=== PATIENT | female | born 1985 | race Caucasian/White ===

== ENCOUNTER 2016-09-09 16:07 | Emergency (ER) | payer OTHER ==
[2016-09-09] MEDS ORDERED: SODIUM CHLORIDE 0.9% 500 ML IV STA (16:23)
[2016-09-09] MEDS ORDERED: ONDANSETRON 4 MG/2 ML VIAL IVP STA (16:23)
[2016-09-09] MEDS ORDERED: MORPHINE SULFATE 4 MG/ML SYRINGE IV STA (16:23)
[2016-09-09 16:39] LABS: Amorphous Sediment,Urine Rare /hpf; Appearance,Urine Clear (Clear); Bacteria,Urine Occasional /hpf; Bilirubin,Urine Negative (Negative); Glucose,Urine (UA) Negative (Negative); Ketones,Urine Negative (Negative); Leukocyte Esterase,Urine Negative (Negative); Mucus,Urine Rare /hpf; Nitrite,Urine Negative (Negative); PH, Urine 6.5 (5.0-8.0); Particle Count 1994; Protein,Urine Negative (Negative); RBC,Urine 49 /hpf (0-5); Specific Gravity,Urine 1.011 (1.001-1.035); Squamous Epithelial Cell,Urine 1 /hpf (0-4); UA Billing (MACRO vs. MICRO) MICRO; Urobilinogen,Urine <2.0 mg/dL (<2.0); WBC,Urine 1 /hpf (0-5)
[2016-09-09 17:01] LABS: ALT 38 U/L (9-52); AST 19 U/L (14-36); Alkaline Phosphatase 77 U/L (38-126); Amylase 35 U/L (30-110); Anion Gap 11 mmol/L; Blood Urea Nitrogen 9 mg/dL (7-17); Calcium 9.5 mg/dL (8.4-10.2); Carbon Dioxide 28 mmol/L (22-30); Chloride 103 mmol/L (98-107); Glucose 101 mg/dL (74-99); Non-African American GFR(MDRD) >60 (>60 ml/min/1.73 sqM); Sodium 142 mmol/L (137-145); Total Bilirubin 0.7 mg/dL (0.2-1.3); Total Protein 7.2 g/dL (6.3-8.2)
[2016-09-09 17:11] LABS: Basophils % (A) 0 %; CH 26.8; CHCM 33.2; Eosinophils # (A) 0.2 k/uL (0-0.7); Eosinophils % (A) 2 %; HDW 3.05; HGB 14.8 gm/dL (11.4-16.0); Luc # (Auto) 0.18; Luc % (Auto) 2; Lymphocytes # (A) 2.2 k/uL (1.0-4.8); Lymphocytes % (A) 21 %; MCHC 32.1 g/dL (31.0-37.0); MCV 80.9 fL (80.0-100.0); Mean Platelet Volume 6.5; Monocytes # (A) 0.5 k/uL (0-1.0); Monocytes % (A) 5 %; Neutrophils # (A) 7.1 k/uL (1.3-7.7); Neutrophils % (A) 70 %; RBC 5.68 m/uL (3.80-5.40); RDW 13.9 % (11.5-15.5); WBC 10.2 k/uL (3.8-10.6); WBC (Perox) 10.91
--- NOTE | 2016-09-09 17:35 | ED ---
Abdominal Pain HPI - General Chief Complaint: Abdominal Pain Stated Complaint: Abdominal Pain Time Seen by Provider: 09/09/16 16:17 Source: patient, RN notes reviewed Mode of arrival: ambulatory Limitations: no limitations - History of Present Illness Initial Comments: 31-year-old female presents emergency Department with chief complaint of right lower quadrant abdominal pain. Patient states started yesterday. Patient states pain is getting worse. She states she has a history of piece he wasn't states that she feels that she is ovarian cyst. Patient states pain is nonradiating. Patient denies any vomiting states she's had some nausea. Denies any fever, chills, dysuria, hematuria. Denies any chance . Patient had a prior section no other abdominal surgeries. - Related Data Home Medications Medication Instructions Recorded Confirmed PARoxetine [Paxil] 20 mg PO DAILY 07/09/15 09/09/16 clonazePAM [KlonoPIN] 0.5 mg PO DAILY 07/09/15 09/09/16 Previous Rx's Medication Instructions Recorded Hydrocodone/Acetaminophen [[place] 1 tab PO Q6HR PRN #20 tab 09/09/16 5-325] Ketorolac [Toradol] 10 mg PO Q8HR #15 tab 09/09/16 Ondansetron Odt [Zofran Odt] 4 mg PO Q8HR PRN #10 tab 09/09/16 Allergies Allergy/AdvReac Type Severity Reaction Status Date / Time cephradine [From Velosef] Allergy Intermediate Rash/Hives Verified 09/09/16 16: 25 Review of Systems ROS Statement: Those systems with pertinent positive or pertinent negative responses have been documented in the HPI. ROS Other: All systems not noted in ROS Statement are negative. Past Medical History Past Medical History: Asthma, Hypertension Additional Past Medical History / Comment(s): PCOS History of Any Multi-Drug Resistant Organisms: None Reported Past Surgical History: Adenoidectomy, Section, Cholecystectomy Past Psychological History: Anxiety, Depression Smoking Status: Current every day smoker Past Alcohol Use History: None Reported Past Drug Use History: None Reported - Past Family History Mother Family Medical History: Diabetes Mellitus, Hypertension General Exam Limitations: no limitations General appearance: alert, in no apparent distress Head exam: Present: atraumatic, normocephalic, normal inspection Respiratory exam: Present: normal lung sounds bilaterally. Absent: respiratory distress, wheezes, rales, rhonchi, stridor Cardiovascular Exam: Present: regular rate, normal rhythm, normal heart sounds. Absent: systolic murmur, diastolic murmur, rubs, gallop, clicks GI/Abdominal exam: Present: soft, tenderness (Mild amount right lower quadrant tenderness), normal bowel sounds. Absent: distended, guarding, rebound, rigid Course Vital Signs 09/09/16 09/09/16 16:09 18:29 Temperature 97.0 F L Pulse Rate 85 77 Respiratory 17 16 Rate Blood Pressure 190/110 163/88 O2 Sat by Pulse 97 98 Oximetry Medical Decision Making - Medical Decision Making 31-year-old female presented emergency Department chief complaint right lower quadrant abdominal pain. Patient's lab work within normal it's. Patient did have some hematuria noted CT does show 3 mm UVJ stone. Patient be treated with pain medication and discharge. Patient is afebrile, has no white count and has no evidence of white cells in her urine. There is no evidence of infection. - Lab Data Result diagrams: 09/09/16 16:39 09/09/16 16:39 Lab Results 09/09/16 09/09/16 09/09/16 Range/Units 16:15 16:15 16:39 WBC (3.8-10.6) k/uL RBC (3.80-5.40) m/uL Hgb (11.4-16.0) gm/dL Hct (34.0-46.0) % MCV (80.0-100.0) fL MCH (25.0-35.0) pg MCHC (31.0-37.0) g/dL RDW (11.5-15.5) % Plt Count (150-450) k/uL Neutrophils % % Lymphocytes % % Monocytes % % Eosinophils % % Basophils % % Neutrophils # (1.3-7.7) k/uL Lymphocytes # (1.0-4.8) k/uL Monocytes # (0-1.0) k/uL Eosinophils # (0-0.7) k/uL Basophils # (0-0.2) k/uL Sodium 142 (137-145) mmol/L Potassium 4.0 (3.5-5.1) mmol/L Chloride 103 (98-107) mmol/L Carbon Dioxide 28 (22-30) mmol/L Anion Gap 11 mmol/L BUN 9 (7-17) mg/dL Creatinine 0.65 (0.52-1.04) mg/dL Est GFR (MDRD) Af Amer >60 (>60 ml/min/1.73 sqM) Est GFR (MDRD) Non-Af >60 (>60 ml/min/1.73 sqM) Glucose 101 H (74-99) mg/dL Calcium 9.5 (8.4-10.2) mg/dL Total Bilirubin 0.7 (0.2-1.3) mg/dL AST 19 (14-36) U/L ALT 38 (9-52) U/L Alkaline Phosphatase 77 (38-126) U/L Total Protein 7.2 (6.3-8.2) g/dL Albumin 4.2 (3.5-5.0) g/dL Amylase 35 (30-110) U/L Lipase 67 (23-300) U/L Urine Color Dark Yellow Urine Appearance Clear (Clear) Urine pH 6.5 (5.0-8.0) Ur Specific [place] 1.011 (1.001-1.035) Urine Protein Negative (Negative) Urine Glucose (UA) Negative (Negative) Urine Ketones Negative (Negative) Urine Blood Small H (Negative) Urine Nitrate Negative (Negative) Urine Bilirubin Negative (Negative) Urine Urobilinogen <2.0 (<2.0) mg/dL Ur Leukocyte Esterase Negative (Negative) Urine RBC 49 H (0-5) /hpf Urine WBC 1 (0-5) /hpf Ur Squamous Epith Cells 1 (0-4) /hpf Amorphous Sediment Rare H (None) /hpf Urine Bacteria Occasional H (None) /hpf Urine Mucus Rare H (None) /hpf Urine HCG, Qual Not Detected (Not Detectd) 09/09/16 Range/Units 16:39 WBC 10.2 (3.8-10.6) k/uL RBC 5.68 H (3.80-5.40) m/uL Hgb 14.8 (11.4-16.0) gm/dL Hct 46.0 (34.0-46.0) % MCV 80.9 (80.0-100.0) fL MCH 26.0 (25.0-35.0) pg MCHC 32.1 (31.0-37.0) g/dL RDW 13.9 (11.5-15.5) % Plt Count 330 (150-450) k/uL Neutrophils % 70 % Lymphocytes % 21 % Monocytes % 5 % Eosinophils % 2 % Basophils % 0 % Neutrophils # 7.1 (1.3-7.7) k/uL Lymphocytes # 2.2 (1.0-4.8) k/uL Monocytes # 0.5 (0-1.0) k/uL Eosinophils # 0.2 (0-0.7) k/uL Basophils # 0.0 (0-0.2) k/uL Sodium (137-145) mmol/L Potassium (3.5-5.1) mmol/L Chloride (98-107) mmol/L Carbon Dioxide (22-30) mmol/L Anion Gap mmol/L BUN (7-17) mg/dL Creatinine (0.52-1.04) mg/dL Est GFR (MDRD) Af Amer (>60 ml/min/1.73 sqM) Est GFR (MDRD) Non-Af (>60 ml/min/1.73 sqM) Glucose (74-99) mg/dL Calcium (8.4-10.2) mg/dL Total Bilirubin (0.2-1.3) mg/dL AST (14-36) U/L ALT (9-52) U/L Alkaline Phosphatase (38-126) U/L Total Protein (6.3-8.2) g/dL Albumin (3.5-5.0) g/dL Amylase (30-110) U/L Lipase (23-300) U/L Urine Color Urine Appearance (Clear) Urine pH (5.0-8.0) Ur Specific [place] (1.001-1.035) Urine Protein (Negative) Urine Glucose (UA) (Negative) Urine Ketones (Negative) Urine Blood (Negative) Urine Nitrate (Negative) Urine Bilirubin (Negative) Urine Urobilinogen (<2.0) mg/dL Ur Leukocyte Esterase (Negative) Urine RBC (0-5) /hpf Urine WBC (0-5) /hpf Ur Squamous Epith Cells (0-4) /hpf Amorphous Sediment (None) /hpf Urine Bacteria (None) /hpf Urine Mucus (None) /hpf Urine HCG, Qual (Not Detectd) Disposition Clinical Impression: Right ureteral calculus Disposition: HOME SELF-CARE Condition: Stable Instructions: Kidney Stones (ED) Additional Instructions: Please return to the Emergency Department if symptoms worsen or any other concerns. Prescriptions: Hydrocodone/Acetaminophen [[place] 5-325] 1 tab PO Q6HR PRN #20 tab PRN Reason: Pain Ketorolac [Toradol] 10 mg PO Q8HR #15 tab Ondansetron Odt [Zofran Odt] 4 mg PO Q8HR PRN #10 tab PRN Reason: Nausea Time of Disposition: 19:45
--- NOTE | 2016-09-09 17:57 | US ---
EXAMINATION TYPE: US transvaginal DATE OF EXAM: 09/09/2016 5:31 PM COMPARISON: NONE CLINICAL HISTORY: Pain. HX of PCOS. RLQ pain. TECHNIQUE: Transvaginal (TV) Date of LMP: 11/22/2016, EXAM MEASUREMENTS: Uterus: 8.7 x 5.9 x 4.7 cm Endometrial Stripe: 0.9 cm Right Ovary: 2.6 x 1.5 x 1.3 cm Left Ovary: Not visualized 1. Uterus: Anteverted wnl 2. Endometrium: wnl 3. Right Ovary: wnl as suboptimally seen 4. Left Ovary: not visualized Spectral, color and waveform doppler imaging shows good arterial and venous flow within the ovaries ; there is no evidence for ovarian torsion. 5. Bilateral Adnexa: wnl 6. Posterior cul-de-sac: no free fluid IMPRESSION: No significant abnormality identified.
[2016-09-09] MEDS ORDERED: KETOROLAC 30 MG/ML 1 ML VIAL IVP STA (18:21)
[2016-09-09 18:30] VITALS: RESP 16
--- NOTE | 2016-09-09 19:26 | CT ---
EXAMINATION TYPE: CT abdomen pelvis wo con DATE OF EXAM: 09/09/2016 7:04 PM COMPARISON: NONE HISTORY: Patient complains of right flank pain and microscopic hematuria. CT DLP: 1242.2 mGycm FINDINGS: LUNG BASES: No evidence for nodule. No evidence for infiltrate. LIVER/GB: Cholecystectomy clips identified. No space-occupying hepatic lesion. PANCREAS: No pancreatic mass identified. No inflammatory process seen. SPLEEN: No evidence for splenomegaly. No intrasplenic lesions seen. ADRENALS: No adrenal nodules identified. No evidence for thickening. KIDNEYS: 3 mm right UVJ calculus resulting in mild right-sided hydroureteronephrosis. Additional nono bstructing right-sided renal calculi. Edema of the right kidney. Underlying infection is not excluded . 2 mm nonobstructing calculus left kidney noted. BOWEL: Appendix has a normal appearance. No evidenc e of bowel obstruction. No inflammatory process. Lymph nodes: No evidence for adenopathy greater than 1 cm. Abdominal aorta: Atheromatous changes seen. No evidence for aneurysm. Genital organs: No significant abnormality. Other: No significant abnormality. IMPRESSION: 3 mm right UVJ calculus resulting in mild right-sided hydroureteronephrosis. Additional nonobstructin g right-sided renal calculi. Edema of the right kidney. Underlying infection is not excluded.
[2016-09-09 20:01] VITALS: BP 158/78; PULSE 74; TEMP 97.9
== END 2016-09-09 20:05 | disposition home or self-care (01) ==
LOC: EC 16:07
DX: N13.2 Hydronephrosis with renal and ureteral calculous obstruction (principal); Z79.899 Other long term (current) drug therapy; Z88.1 Allergy status to other antibiotic agents; E28.2 Polycystic ovarian syndrome; F41.9 Anxiety disorder, unspecified; F32.9 Major depressive disorder, single episode, unspecified; F17.200 Nicotine dependence, unspecified, uncomplicated
CPT/HCPCS: 36415; 80053; 82150; 83690; 85025; 81001; 81025; 87086; 93976; 76830; 74176; 99284; 96374; 96375; 96361; J2270; J2405; J1885

== ENCOUNTER 2017-07-24 16:51 | Emergency (ER) | payer OTHER ==
[2017-07-24 17:15] VITALS: BP 168/95; PULSE 89; RESP 17; TEMP 97.6
--- NOTE | 2017-07-24 17:21 | ED ---
General Adult HPI - General Chief complaint: Extremity Injury, Upper Stated complaint: Rt wrist injury ( fell on ice) Time Seen by Provider: 07/24/17 17:11 Source: patient, RN notes reviewed Mode of arrival: ambulatory Limitations: no limitations - History of Present Illness Initial comments: 32-year-old female presents to the emergency department with a chief complaint of right wrist pain. She states she slipped on the ice and fell onto her right wrist. Now she's having some pain. She has a swelling she denies any head injury or any other symptoms with this. She was concerned due to the continued pain in the wrist so she thought that she should be evaluated. Patient denies any recent fever, chills, shortness of breath, chest pain, back pain, abdominal pain, nausea vomiting, numbness or tingling, dysuria or hematuria, constipation or diarrhea, headaches or visual changes, or any other current symptoms. - Related Data Home Medications Medication Instructions Recorded Confirmed PARoxetine [Paxil] 20 mg PO DAILY 07/09/15 09/09/16 clonazePAM [KlonoPIN] 0.5 mg PO DAILY 07/09/15 09/09/16 Previous Rx's Medication Instructions Recorded Hydrocodone/Acetaminophen [[place] 1 tab PO Q6HR PRN #20 tab 09/09/16 5-325] Ketorolac [Toradol] 10 mg PO Q8HR #15 tab 09/09/16 Ondansetron Odt [Zofran Odt] 4 mg PO Q8HR PRN #10 tab 09/09/16 Allergies Allergy/AdvReac Type Severity Reaction Status Date / Time cephradine [From Velosef] Allergy Intermediate Rash/Hives Verified 07/24/17 17: 12 Review of Systems ROS Statement: Those systems with pertinent positive or pertinent negative responses have been documented in the HPI. ROS Other: All systems not noted in ROS Statement are negative. Past Medical History Past Medical History: Asthma, Hypertension Additional Past Medical History / Comment(s): PCOS History of Any Multi-Drug Resistant Organisms: None Reported Past Surgical History: Adenoidectomy, Section, Cholecystectomy Past Psychological History: Anxiety, Depression Smoking Status: Current every day smoker Past Alcohol Use History: None Reported Past Drug Use History: None Reported - Past Family History Mother Family Medical History: Diabetes Mellitus, Hypertension General Exam - General Exam Comments Initial Comments: General: The patient is awake and alert, in no distress, and does not appear acutely ill. Neck: The neck is supple, there is no tenderness. Cardiovascular: There is a regular rate and rhythm. No murmur, rub or gallop is appreciated. Respiratory: Lungs are clear to auscultation, respirations are non-labored, breath sounds are equal. No wheezes, stridor, rales, or rhonchi. Musculoskeletal: Sensation intact with 2+ pulses of the right upper extremity. Frontal motion of right elbow. Patient has good range of motion right wrist with some tenderness along the distal ulna. No deformity no swelling no ecchymosis. Fund motion of the right hand with no point tenderness. Neurological: CN II-XII intact, There are no obvious motor or sensory deficits. Coordination appears grossly intact. Speech is normal. Skin: Skin is warm and dry and no rashes or lesions are noted. Psychiatric: Normal mood and affect. Limitations: no limitations Course Vital Signs 07/24/17 17:12 Temperature 97.6 F Pulse Rate 89 Respiratory 17 Rate Blood Pressure 168/95 O2 Sat by Pulse 97 Oximetry Medical Decision Making - Medical Decision Making 32-year-old female presents emergency department with chief complaint of right wrist pain. Patient had a trip and fall. At this time x-rays are reviewed. At this time x-rays are negative. We discussed ice Motrin Tylenol. We discussed return parameters and follow-up and all questions. Patient stated that she understood and she is agreement this plan. She'll be discharged. - Radiology Data Radiology results: report reviewed, image reviewed Disposition Clinical Impression: Right wrist sprain Disposition: HOME SELF-CARE Condition: Stable Instructions: Wrist Injury (ED) Additional Instructions: Please use medication as discussed. Please follow up with family doctor if symptoms have not improved over the next two days. Please return to the emergency room if your symptoms increase or worsen or for any other concerns. Referrals: Francisco Mendez MD [Primary Care Provider] - 1-2 days Time of Disposition: 17:45
--- NOTE | 2017-07-24 17:42 | XR ---
PROCEDURE: XR wrist complete RT - 4V DATE AND TIME: 07/24/2017 5:34 PM REFERRING PHYSICIAN: Hyacinth Coleman CLINICAL INDICATION: PHH, Pain TECHNIQUE: Department protocol. COMPARISON: None FINDINGS: There is no fracture or malalignment. The soft tissues are unremarkable. IMPRESSION: NO ACUTE PROCESS.
== END 2017-07-24 17:55 | disposition home or self-care (01) ==
LOC: EC 16:51
DX: S63.501A Unspecified sprain of right wrist, initial encounter (principal); F32.9 Major depressive disorder, single episode, unspecified; F41.9 Anxiety disorder, unspecified; F17.200 Nicotine dependence, unspecified, uncomplicated; Z88.1 Allergy status to other antibiotic agents; Z79.899 Other long term (current) drug therapy; W00.0XXA Fall on same level due to ice and snow, initial encounter
CPT/HCPCS: 99283

== ENCOUNTER → 2017-12-19 | Outpatient (CLI) | payer OTHER ==
--- NOTE | 2017-12-19 15:43 | US ---
EXAMINATION TYPE: Transabdominal DATE OF EXAM: 10/15/17 COMPARISON: NONE CLINICAL HISTORY: Z36 Confirm dates. EXAM PERFORMED: Transvaginal (TV) and Transabdominal (TA) tv supplemental pt body habitus EXAM MEASUREMENTS: GESTATIONAL AGE / DATING Physician Established: Not yet established Dates by LMP: (9 weeks/0 days) EDC: 07/24/2018 Dates by First Scan: no prior Dates by Current Scan for: (7 weeks/5 days) EDC: 08/02/2018 MATERNAL ANATOMY Uterus: 9.4 x 5.9 x 8.6 Right Ovary: 2.0 x 1.6 x 1.9cm Left Ovary: 1.5x1.5 x 1.4 cm Post CDS / Adnexa: wnl Presence of free fluid: wnl Presence of corpus luteal cyst: small rt cyst 0.5 cm Presence of subchorionic bleed: no GESTATION / SURVEY CRL: 1.7 cm 8 weeks/1 days) MSD: 2.5 (7 weeks/1 days) Yolk Sac (normal less than 6mm): 5 Heart Rate: 165 bpm Rhythm: Normal IUP: Viable IUP Date of LMP: 10/17 2017 Beta HcG (if available): Not available at this time IMPRESSION: Single intrauterine gestation estimated at 8 weeks 1 day based on crown-rump length. Cardiac activity measures 165 bpm.
== END | disposition home or self-care (01) ==
LOC: RADUSWWP 14:53
PROVIDERS: ATTEND Obstetrics & Gynecology
DX: Z36.89 Encounter for other specified antenatal screening (principal)
CPT/HCPCS: 76801; 76817

== ENCOUNTER 2017-12-22 19:25 | Emergency (ER) | payer OTHER ==
[2017-12-22 19:42] VITALS: BP 138/90; PULSE 75; RESP 18; TEMP 98.2
[2017-12-22] MEDS ORDERED: SODIUM CHLORIDE 0.9% 1,000 ML IV STA (19:51)
--- NOTE | 2017-12-22 19:54 | ED ---
Dizziness HPI - General Chief Complaint: Dizziness Stated Complaint: Dizziness, 8 wks pgt Time Seen by Provider: 12/22/17 19:45 Source: patient, RN notes reviewed Mode of arrival: wheelchair Limitations: no limitations - History of Present Illness Initial Comments: This is a 32-year-old female who presents to the emergency department with chief complaint of dizziness. Patient states that she is currently 8 weeks . She states that for the past 3 days she has felt dizzy, stating that she feels like she is going to pass out. She states that she has not actually passed out. She states that this comes and goes. She states it happens once every few hours. She admits to associated nausea. Denies fevers or chills, chest pain or shortness of breath, abdominal pain, vomiting, diarrhea or constipation, vaginal discharge or bleeding. - Related Data Home Medications Medication Instructions Recorded Confirmed PARoxetine [Paxil] 20 mg PO DAILY 07/09/15 09/09/16 clonazePAM [KlonoPIN] 0.5 mg PO DAILY 07/09/15 09/09/16 Previous Rx's Medication Instructions Recorded Hydrocodone/Acetaminophen [[place] 1 tab PO Q6HR PRN #20 tab 09/09/16 5-325] Ketorolac [Toradol] 10 mg PO Q8HR #15 tab 09/09/16 Ondansetron Odt [Zofran Odt] 4 mg PO Q8HR PRN #10 tab 09/09/16 methylPREDNISolone Dose Pack 4 mg PO DIRECTED #21 package 10/24/17 [Medrol Dose Pack] Allergies Allergy/AdvReac Type Severity Reaction Status Date / Time cephradine [From Velosef] Allergy Intermediate Rash/Hives Verified 12/22/17 19: 42 Review of Systems ROS Statement: Those systems with pertinent positive or pertinent negative responses have been documented in the HPI. ROS Other: All systems not noted in ROS Statement are negative. Past Medical History Past Medical History: Asthma, Hypertension Additional Past Medical History / Comment(s): PCOS History of Any Multi-Drug Resistant Organisms: None Reported Past Surgical History: Adenoidectomy, Section, Cholecystectomy, Tonsillectomy Past Psychological History: Anxiety, Depression Smoking Status: Former smoker Past Alcohol Use History: None Reported Past Drug Use History: None Reported - Past Family History Mother Family Medical History: Diabetes Mellitus, Hypertension General Exam - General Exam Comments Initial Comments: General: Awake and alert, well-developed; in no apparent distress. HEENT: Head atraumatic, normocephalic. Pupils are equal, round and reactive to light. Extraocular movements intact. Oropharynx moist without erythema or exudate. Neck: Supple. Normal ROM. Cardiovascular: Regular rate and rhythm. No murmurs, rubs or gallops. Chest symmetrical. Respiratory: Lungs clear to auscultation bilaterally. No wheezes, rales or rhonchi. Normal respiratory effort with no use of accessory muscles. Abdomen: Soft, non-tender, non-distended. No rigidity, rebound or guarding. Normal bowel sounds in all 4 quadrants. Musculoskeletal: Normal ROM, no tenderness, strength 5/5 bilateral upper and lower extremities. Ambulating normally. Skin: [place], warm and dry without rashes or lesions. Neurological: Alert and oriented x3. CN II-XII grossly intact. Speech is fluent and answers are appropriate. No focal neuro deficits. Psychiatric: Normal mood and affect. No overt signs of depression or anxiety noted. Limitations: no limitations Course Vital Signs 12/22/17 19:40 Temperature 98.2 F Pulse Rate 75 Respiratory 18 Rate Blood Pressure 138/90 O2 Sat by Pulse 100 Oximetry Medical Decision Making - Medical Decision Making This is a 32-year-old female presents to the emergency department with chief complaint of dizziness. Patient is currently 8 weeks . She states that for the past 3 days she has been feeling like she is going to pass out intermittently. Denies vaginal bleeding or discharge. Denies abdominal pain. CBC, CMP, UA and urine drug screen are negative. Orthostatics are within normal limits. Recommended to increase oral intake. Patient's vital signs are stable and she is in no acute distress. She'll be discharged home at this time. Recommended following up with her PREPARATION CENTER COORDINATOR within 1-2 days. Patient is in agreement with plan and voices understanding. She'll be discharged home at this time. All questions answered. - Lab Data Result diagrams: 12/22/17 20:06 12/22/17 20:06 Lab Results 12/22/17 12/22/17 12/22/17 Range/Units 20:06 20:06 20:06 WBC 10.7 H (3.8-10.6) k/uL RBC 5.12 (3.80-5.40) m/uL Hgb 14.0 (11.4-16.0) gm/dL Hct 42.0 (34.0-46.0) % MCV 82.1 (80.0-100.0) fL MCH 27.4 (25.0-35.0) pg MCHC 33.4 (31.0-37.0) g/dL RDW 14.7 (11.5-15.5) % Plt Count 254 (150-450) k/uL Neutrophils % 68 % Lymphocytes % 22 % Monocytes % 6 % Eosinophils % 2 % Basophils % 0 % Neutrophils # 7.3 (1.3-7.7) k/uL Lymphocytes # 2.4 (1.0-4.8) k/uL Monocytes # 0.6 (0-1.0) k/uL Eosinophils # 0.3 (0-0.7) k/uL Basophils # 0.0 (0-0.2) k/uL Sodium 138 (137-145) mmol/L Potassium 3.8 (3.5-5.1) mmol/L Chloride 101 (98-107) mmol/L Carbon Dioxide 24 (22-30) mmol/L Anion Gap 13 mmol/L BUN 11 (7-17) mg/dL Creatinine 0.60 (0.52-1.04) mg/dL Est GFR (CKD-EPI)AfAm >90 (>60 ml/min/1.73 sqM) Est GFR (CKD-EPI)NonAf >90 (>60 ml/min/1.73 sqM) Glucose 76 (74-99) mg/dL Calcium 9.3 (8.4-10.2) mg/dL Total Bilirubin 0.5 (0.2-1.3) mg/dL AST 16 (14-36) U/L ALT 29 (9-52) U/L Alkaline Phosphatase 51 (38-126) U/L Total Protein 6.6 (6.3-8.2) g/dL Albumin 4.0 (3.5-5.0) g/dL Urine Color Light Yellow Urine Appearance Clear (Clear) Urine pH 6.5 (5.0-8.0) Ur Specific [place] 1.003 (1.001-1.035) Urine Protein Negative (Negative) Urine Glucose (UA) Negative (Negative) Urine Ketones Negative (Negative) Urine Blood Negative (Negative) Urine Nitrite Negative (Negative) Urine Bilirubin Negative (Negative) Urine Urobilinogen <2.0 (<2.0) mg/dL Ur Leukocyte Esterase Negative (Negative) Urine Opiates Screen Not Detected (NotDetected) Ur Oxycodone Screen Not Detected (NotDetected) Urine Methadone Screen Not Detected (NotDetected) Ur Propoxyphene Screen Not Detected (NotDetected) Ur Barbiturates Screen Not Detected (NotDetected) U Tricyclic Antidepress Not Detected (NotDetected) Ur Phencyclidine Scrn Not Detected (NotDetected) Ur Amphetamines Screen Not Detected (NotDetected) U Methamphetamines Scrn Not Detected (NotDetected) U Benzodiazepines Scrn Not Detected (NotDetected) Urine Cocaine Screen Not Detected (NotDetected) U Marijuana (THC) Screen Not Detected (NotDetected) - EKG Data EKG Comments: 19:56:15. Normal sinus rhythm. Ventricular rate 71 bpm, MT interval 190, QRS duration of 72, QT/QTC 386/419. Disposition Clinical Impression: Dizziness Disposition: HOME SELF-CARE Condition: Good Instructions: Dizziness (ED) Additional Instructions: Please follow-up with your PREPARATION CENTER COORDINATOR within 1-2 days. Please follow up with primary care provider within 1-2 days. Return to emergency department if symptoms should worsen or any concerns arise. Is patient prescribed a controlled substance at d/c from ED?: No Referrals: Francisco Mendez MD [Primary Care Provider] - 1-2 days Time of Disposition: 20:53
[2017-12-22 20:19] LABS: Basophils % (A) 0 %; Eosinophils # (A) 0.3 k/uL (0-0.7); Eosinophils % (A) 2 %; Lymphocytes # (A) 2.4 k/uL (1.0-4.8); Lymphocytes % (A) 22 %; MCH 27.4 pg (25.0-35.0); MCHC 33.4 g/dL (31.0-37.0); MCV 82.1 fL (80.0-100.0); Mean Platelet Volume 6.5; Monocytes # (A) 0.6 k/uL (0-1.0); Monocytes % (A) 6 %; Neutrophils # (A) 7.3 k/uL (1.3-7.7); Neutrophils % (A) 68 %; Platelet Count 254 k/uL (150-450); RBC 5.12 m/uL (3.80-5.40); RDW 14.7 % (11.5-15.5); WBC 10.7 k/uL (3.8-10.6)
[2017-12-22 20:20] LABS: Appearance,Urine Clear (Clear); Bilirubin,Urine Negative (Negative); Blood,Urine Negative (Negative); Color,Urine Light Yellow; Glucose,Urine (UA) Negative (Negative); Ketones,Urine Negative (Negative); Leukocyte Esterase,Urine Negative (Negative); Nitrite,Urine Negative (Negative); PH, Urine 6.5 (5.0-8.0); Protein,Urine Negative (Negative); Specific Gravity,Urine 1.003 (1.001-1.035); Urobilinogen,Urine <2.0 mg/dL (<2.0)
[2017-12-22 20:27] LABS: ALT 29 U/L (9-52); AST 16 U/L (14-36); Alkaline Phosphatase 51 U/L (38-126); Anion Gap 13 mmol/L; Blood Urea Nitrogen 11 mg/dL (7-17); Calcium 9.3 mg/dL (8.4-10.2); Carbon Dioxide 24 mmol/L (22-30); Chloride 101 mmol/L (98-107); Glucose 76 mg/dL (74-99); Potassium 3.8 mmol/L (3.5-5.1); Sodium 138 mmol/L (137-145); Total Bilirubin 0.5 mg/dL (0.2-1.3); Total Protein 6.6 g/dL (6.3-8.2)
[2017-12-22 20:33] LABS: Amphetamine Screen,Urine Not Detected (NotDetected); Barbiturate Screen,Urine Not Detected (NotDetected); Benzodiazepines Screen,Urine Not Detected (NotDetected); Cocaine Screen,Urine Not Detected (NotDetected); Methadone Screen, Urine Not Detected (NotDetected); Opiate Screen,Urine Not Detected (NotDetected); Oxycodone Screen, Urine Not Detected (NotDetected); Phencyclidine Screen,Urine Not Detected (NotDetected); Tricyclic Antidepressant,Urine Not Detected (NotDetected); Urn Cannabinoid Scrn Not Detected (NotDetected)
== END 2017-12-22 21:10 | disposition home or self-care (01) ==
LOC: EC 19:25
DX: O99.89 Other specified diseases and conditions complicating pregnancy, childbirth and the puerperium (principal); R42 Dizziness and giddiness; R11.0 Nausea; O99.341 Other mental disorders complicating pregnancy, first trimester; F32.9 Major depressive disorder, single episode, unspecified; F41.9 Anxiety disorder, unspecified; Z3A.08 8 weeks gestation of pregnancy; Z88.1 Allergy status to other antibiotic agents; Z79.899 Other long term (current) drug therapy; Z87.891 Personal history of nicotine dependence
CPT/HCPCS: 36415; 80053; 80306; 81003; 85025; 87077; 87086; 87186; 93005; 96360; 99284

== ENCOUNTER 2018-01-02 18:34 | Emergency (ER) | payer OTHER ==
[2018-01-02 18:39] VITALS: RESP 16
[2018-01-02] MEDS ORDERED: METOCLOPRAMIDE 5 MG/ML 2 ML VIAL IVP STA (18:40)
[2018-01-02] MEDS ORDERED: SODIUM CHLORIDE 0.9% 2,000 ML IV STA (18:40)
[2018-01-02 19:12] LABS: Basophils % (A) 0 %; Eosinophils # (A) 0.2 k/uL (0-0.7); Eosinophils % (A) 2 %; HCT 40.9 % (34.0-46.0); Lymphocytes # (A) 2.3 k/uL (1.0-4.8); Lymphocytes % (A) 20 %; MCH 28.2 pg (25.0-35.0); MCHC 34.3 g/dL (31.0-37.0); MCV 82.3 fL (80.0-100.0); Mean Platelet Volume 6.8; Monocytes # (A) 0.5 k/uL (0-1.0); Monocytes % (A) 5 %; Neutrophils # (A) 8.1 k/uL (1.3-7.7); Neutrophils % (A) 72 %; Platelet Count 274 k/uL (150-450); RBC 4.97 m/uL (3.80-5.40); RDW 14.7 % (11.5-15.5); WBC 11.3 k/uL (3.8-10.6)
[2018-01-02 19:20] LABS: ALT 25 U/L (9-52); AST 15 U/L (14-36); Albumin 3.8 g/dL (3.5-5.0); Alkaline Phosphatase 50 U/L (38-126); Amylase 36 U/L (30-110); Anion Gap 13 mmol/L; Blood Urea Nitrogen 10 mg/dL (7-17); Calcium 9.3 mg/dL (8.4-10.2); Carbon Dioxide 20 mmol/L (22-30); Chloride 103 mmol/L (98-107); Glucose 88 mg/dL (74-99); Lipase 74 U/L (23-300); Potassium 3.9 mmol/L (3.5-5.1); Sodium 136 mmol/L (137-145); Total Bilirubin 0.4 mg/dL (0.2-1.3); Total Protein 6.3 g/dL (6.3-8.2)
[2018-01-02 19:21] LABS: Amorphous Sediment,Urine Occasional /hpf; Appearance,Urine Cloudy (Clear); Bilirubin,Urine Negative (Negative); Blood,Urine Negative (Negative); Color,Urine Yellow; Glucose,Urine (UA) Negative (Negative); Ketones,Urine Negative (Negative); Leukocyte Esterase,Urine Small (Negative); Mucus,Urine Rare /hpf; Nitrite,Urine Negative (Negative); PH, Urine 6.5 (5.0-8.0); Protein,Urine Negative (Negative); Specific Gravity,Urine 1.013 (1.001-1.035); Squamous Epithelial Cell,Urine 4 /hpf (0-4); Urobilinogen,Urine <2.0 mg/dL (<2.0); WBC,Urine 4 /hpf (0-5)
--- NOTE | 2018-01-02 19:32 | ED ---
Nausea/Vomiting/Diarrhea HPI - General Chief complaint: Nausea/Vomiting/Diarrhea Stated complaint: 10 WEEKS AND VOMITING Time Seen by Provider: 01/02/18 18:40 Source: patient, RN notes reviewed Mode of arrival: ambulatory Limitations: no limitations - History of Present Illness Initial comments: 32-year-old female presents emergency Department with chief complaint of nausea vomiting. Patient states she is A0 and currently approximately 10 weeks . Patient states that she been vomiting over the last 2 days clinic evening down. She denies any dysuria or hematuria. Denies any vaginal bleeding or vaginal discharge. Patient states her ON CALL is Dr. Gan. Patient was no fevers no chills no back pain no flank pain no chest pain or shortness breath no headache no dizziness. - Related Data Home Medications Medication Instructions Recorded Confirmed Cephalexin [Keflex] 500 mg PO QID 01/02/18 01/02/18 FLUoxetine HCL [PROzac] 20 mg PO HS 01/02/18 01/02/18 Ieo-Gegt-Cmfjk Acid 1 cap PO HS 01/02/18 01/02/18 [-U Capsule (formulary)] Allergies Allergy/AdvReac Type Severity Reaction Status Date / Time cephradine [From Velosef] Allergy Intermediate Rash/Hives Verified 01/02/18 19: 25 Review of Systems ROS Statement: Those systems with pertinent positive or pertinent negative responses have been documented in the HPI. ROS Other: All systems not noted in ROS Statement are negative. Past Medical History Past Medical History: Asthma, Hypertension Additional Past Medical History / Comment(s): PCOS History of Any Multi-Drug Resistant Organisms: None Reported Past Surgical History: Adenoidectomy, Section, Cholecystectomy, Tonsillectomy Past Psychological History: Anxiety, Depression Smoking Status: Former smoker Past Alcohol Use History: None Reported Past Drug Use History: None Reported - Past Family History Mother Family Medical History: Diabetes Mellitus, Hypertension General Exam Limitations: no limitations General appearance: alert, in no apparent distress Head exam: Present: atraumatic, normocephalic, normal inspection Eye exam: Present: normal appearance, PERRL, EOMI. Absent: scleral icterus, conjunctival injection, periorbital swelling ENT exam: Present: normal exam, normal oropharynx, mucous membranes moist Neck exam: Present: normal inspection, full ROM. Absent: tenderness, meningismus, lymphadenopathy Respiratory exam: Present: normal lung sounds bilaterally. Absent: respiratory distress, wheezes, rales, rhonchi, stridor Cardiovascular Exam: Present: regular rate, normal rhythm, normal heart sounds. Absent: systolic murmur, diastolic murmur, rubs, gallop, clicks GI/Abdominal exam: Present: soft, normal bowel sounds. Absent: distended, tenderness, guarding, rebound, rigid Back exam: Absent: CVA tenderness (R), CVA tenderness (L) Course Vital Signs 01/02/18 18:38 Temperature 98.2 F Pulse Rate 88 Respiratory 16 Rate Blood Pressure 152/98 O2 Sat by Pulse 98 Oximetry Medical Decision Making - Medical Decision Making 32-year-old female presented emergency from for nausea vomiting. Patient was hydrated given Reglan emergency department. Patient has improved. She'll be advised take fxgg-dvl-echhuoc B6 vitamin and follow-up with her ON CALL. Return parameters discussed. - Lab Data Result diagrams: 01/02/18 18:57 01/02/18 18:57 Lab Results 01/02/18 01/02/18 01/02/18 Range/Units 18:57 18:57 18:57 WBC 11.3 H (3.8-10.6) k/uL RBC 4.97 (3.80-5.40) m/uL Hgb 14.0 (11.4-16.0) gm/dL Hct 40.9 (34.0-46.0) % MCV 82.3 (80.0-100.0) fL MCH 28.2 (25.0-35.0) pg MCHC 34.3 (31.0-37.0) g/dL RDW 14.7 (11.5-15.5) % Plt Count 274 (150-450) k/uL Neutrophils % 72 % Lymphocytes % 20 % Monocytes % 5 % Eosinophils % 2 % Basophils % 0 % Neutrophils # 8.1 H (1.3-7.7) k/uL Lymphocytes # 2.3 (1.0-4.8) k/uL Monocytes # 0.5 (0-1.0) k/uL Eosinophils # 0.2 (0-0.7) k/uL Basophils # 0.0 (0-0.2) k/uL Sodium 136 L (137-145) mmol/L Potassium 3.9 (3.5-5.1) mmol/L Chloride 103 (98-107) mmol/L Carbon Dioxide 20 L (22-30) mmol/L Anion Gap 13 mmol/L BUN 10 (7-17) mg/dL Creatinine 0.54 (0.52-1.04) mg/dL Est GFR (CKD-EPI)AfAm >90 (>60 ml/min/1.73 sqM) Est GFR (CKD-EPI)NonAf >90 (>60 ml/min/1.73 sqM) Glucose 88 (74-99) mg/dL Calcium 9.3 (8.4-10.2) mg/dL Total Bilirubin 0.4 (0.2-1.3) mg/dL AST 15 (14-36) U/L ALT 25 (9-52) U/L Alkaline Phosphatase 50 (38-126) U/L Total Protein 6.3 (6.3-8.2) g/dL Albumin 3.8 (3.5-5.0) g/dL Amylase 36 (30-110) U/L Lipase 74 (23-300) U/L Urine Color Yellow Urine Appearance Cloudy H (Clear) Urine pH 6.5 (5.0-8.0) Ur Specific [place] 1.013 (1.001-1.035) Urine Protein Negative (Negative) Urine Glucose (UA) Negative (Negative) Urine Ketones Negative (Negative) Urine Blood Negative (Negative) Urine Nitrite Negative (Negative) Urine Bilirubin Negative (Negative) Urine Urobilinogen <2.0 (<2.0) mg/dL Ur Leukocyte Esterase Small H (Negative) Urine WBC 4 (0-5) /hpf Ur Squamous Epith Cells 4 (0-4) /hpf Amorphous Sediment Occasional H (None) /hpf Urine Mucus Rare H (None) /hpf Disposition Clinical Impression: Nausea/vomiting in Disposition: HOME SELF-CARE Condition: Stable Instructions: Acute Nausea and Vomiting (ED) Additional Instructions: Please return to the Emergency Department if symptoms worsen or any other concerns. Is patient prescribed a controlled substance at d/c from ED?: No Referrals: Francisco Mendez MD [Primary Care Provider] - 1-2 days Time of Disposition: 19:33
[2018-01-02 21:16] VITALS: BP 116/66; PULSE 71; TEMP 97.7
== END 2018-01-02 21:14 | disposition home or self-care (01) ==
LOC: EC 18:34
DX: O21.9 Vomiting of pregnancy, unspecified (principal); O99.341 Other mental disorders complicating pregnancy, first trimester; F32.9 Major depressive disorder, single episode, unspecified; F41.9 Anxiety disorder, unspecified; Z3A.10 10 weeks gestation of pregnancy; Z87.891 Personal history of nicotine dependence; Z79.899 Other long term (current) drug therapy; Z88.8 Allergy status to other drugs, medicaments and biological substances; Z90.49 Acquired absence of other specified parts of digestive tract
CPT/HCPCS: 36415; 80053; 82150; 83690; 85025; 81001; 99284; 96374; 96361 ×2; J2765

== ENCOUNTER 2018-01-10 17:18 | Emergency (ER) | payer OTHER ==
[2018-01-10] MEDS ORDERED: ACETAMINOPHEN TAB 325 MG TAB PO STA (19:22)
[2018-01-10] MEDS ORDERED: SODIUM CHLORIDE 0.9% 500 ML IV STA (19:22)
[2018-01-10] MEDS ORDERED: SODIUM CHLORIDE 0.9% 1,000 ML IV STA (19:22)
--- NOTE | 2018-01-10 19:26 | ED ---
Abdominal Pain HPI - General Chief Complaint: Abdominal Pain Stated Complaint: Cramping/11 weeks Time Seen by Provider: 01/10/18 19:17 Source: patient Mode of arrival: ambulatory Limitations: no limitations - History of Present Illness Initial Comments: 32-year-old female patient who is currently 11 weeks , A0, presents to the emergency department today for evaluation of pelvic cramping. Patient states this started around 1545 this afternoon. Patient states the pain has been consistent. She denies any vaginal bleeding or abnormal discharge. States that she is urinating frequently but denies any hematuria, dysuria, or urinary urgency. Patient states that she has been nauseated but that has been normal for the last couple of weeks with the . States that she has vomited several times today. She denies any constipation or diarrhea. Denies any fevers or chills. Patient has had cholecystectomy. Patient denies any recent rash, fever, chills, shortness breath, chest pain, back pain, numbness, tingling, dizziness, weakness, headache, visual changes, or any other complaints. - Related Data Home Medications Medication Instructions Recorded Confirmed Ukv-Ioss-Nvbzl Acid 1 cap PO HS 01/02/18 01/10/18 [-U Capsule (formulary)] Previous Rx's Medication Instructions Recorded Cephalexin [Keflex] 500 mg PO Q6H #28 cap 01/10/18 Metoclopramide [Reglan] 10 mg PO Q8H PRN #10 tab 01/10/18 Allergies Allergy/AdvReac Type Severity Reaction Status Date / Time cephradine [From Velosef] Allergy Intermediate Rash/Hives Verified 01/10/18 19: 22 Review of Systems ROS Statement: Those systems with pertinent positive or pertinent negative responses have been documented in the HPI. ROS Other: All systems not noted in ROS Statement are negative. Past Medical History Past Medical History: Asthma, Hypertension Additional Past Medical History / Comment(s): PCOS History of Any Multi-Drug Resistant Organisms: None Reported Past Surgical History: Adenoidectomy, Section, Cholecystectomy, Tonsillectomy Past Psychological History: Anxiety, Depression Smoking Status: Former smoker Past Alcohol Use History: None Reported Past Drug Use History: None Reported - Past Family History Mother Family Medical History: Diabetes Mellitus, Hypertension General Exam Limitations: no limitations General appearance: alert, in no apparent distress, other (This is a well- developed, well-nourished adult female patient in no acute distress. Vital signs upon presentation are temperature 98.1F, pulse 84, respirations 18, blood pressure 147/86, pulse ox 100% on room air.) Eye exam: Present: normal appearance, PERRL, EOMI. Absent: scleral icterus, conjunctival injection, periorbital swelling ENT exam: Present: normal exam, normal oropharynx, mucous membranes moist Respiratory exam: Present: normal lung sounds bilaterally. Absent: respiratory distress, wheezes, rales, rhonchi, stridor Cardiovascular Exam: Present: regular rate, normal rhythm, normal heart sounds. Absent: systolic murmur, diastolic murmur, rubs, gallop, clicks GI/Abdominal exam: Present: soft, tenderness (Right and left pelvic tenderness. No suprapubic tenderness.), normal bowel sounds. Absent: distended, guarding , rebound, rigid Back exam: Present: normal inspection. Absent: CVA tenderness (R), CVA tenderness (L) Neurological exam: Present: alert, oriented X3, CN II-XII intact Psychiatric exam: Present: normal affect, normal mood Skin exam: Present: warm, dry, intact, normal color. Absent: rash Course Vital Signs 01/10/18 01/10/18 01/10/18 17:53 20:06 21:32 Temperature 98.1 F 97.3 F L Pulse Rate 84 71 67 Respiratory 18 16 15 Rate Blood Pressure 147/86 142/81 116/71 O2 Sat by Pulse 100 100 100 Oximetry Medical Decision Making - Medical Decision Making 32-year-old female patient presented to the emergency department today for evaluation of suprapubic cramping, she is 11 weeks . Labs reviewed and showed no acute findings however there was presence of bacteria in the urine. Ultrasound showed no complicating process. Patient is feeling better after receiving IV fluids here. Patient did admit that she had been drinking a lot of water and does not have air conditioning at home. States she may have been dehydrated. We will start Keflex for the bacteriuria. She is instructed to follow-up with the bread oven operator for recheck as soon as possible. She is instructed to follow-up with her primary care physician for recheck in 1-2 days. Return parameters discussed in detail. She verbalizes understanding and agrees with this plan. - Lab Data Result diagrams: 01/10/18 20:00 01/10/18 20:00 Lab Results 01/10/18 01/10/18 01/10/18 Range/Units 20:00 20:00 20:00 WBC 10.7 H (3.8-10.6) k/uL RBC 5.07 (3.80-5.40) m/uL Hgb 14.0 (11.4-16.0) gm/dL Hct 41.3 (34.0-46.0) % MCV 81.6 (80.0-100.0) fL MCH 27.6 (25.0-35.0) pg MCHC 33.8 (31.0-37.0) g/dL RDW 14.4 (11.5-15.5) % Plt Count 244 (150-450) k/uL Neutrophils % 72 % Lymphocytes % 20 % Monocytes % 5 % Eosinophils % 1 % Basophils % 0 % Neutrophils # 7.7 (1.3-7.7) k/uL Lymphocytes # 2.2 (1.0-4.8) k/uL Monocytes # 0.5 (0-1.0) k/uL Eosinophils # 0.1 (0-0.7) k/uL Basophils # 0.0 (0-0.2) k/uL Sodium 140 (137-145) mmol/L Potassium 4.1 (3.5-5.1) mmol/L Chloride 107 (98-107) mmol/L Carbon Dioxide 19 L (22-30) mmol/L Anion Gap 14 mmol/L BUN 10 (7-17) mg/dL Creatinine 0.47 L (0.52-1.04) mg/dL Est GFR (CKD-EPI)AfAm >90 (>60 ml/min/1.73 sqM) Est GFR (CKD-EPI)NonAf >90 (>60 ml/min/1.73 sqM) Glucose 75 (74-99) mg/dL Calcium 9.4 (8.4-10.2) mg/dL Total Bilirubin 0.9 (0.2-1.3) mg/dL AST 23 (14-36) U/L ALT 25 (9-52) U/L Alkaline Phosphatase 42 (38-126) U/L Total Protein 6.6 (6.3-8.2) g/dL Albumin 3.9 (3.5-5.0) g/dL Amylase 32 (30-110) U/L Lipase 37 (23-300) U/L Urine Color Yellow Urine Appearance Cloudy H (Clear) Urine pH 6.5 (5.0-8.0) Ur Specific [place] 1.015 (1.001-1.035) Urine Protein Negative (Negative) Urine Glucose (UA) Negative (Negative) Urine Ketones Trace H (Negative) Urine Blood Negative (Negative) Urine Nitrite Negative (Negative) Urine Bilirubin Negative (Negative) Urine Urobilinogen <2.0 (<2.0) mg/dL Ur Leukocyte Esterase Trace H (Negative) Urine RBC 2 (0-5) /hpf Urine WBC 6 H (0-5) /hpf Ur Squamous Epith Cells 7 H (0-4) /hpf Amorphous Sediment Occasional H (None) /hpf Urine Bacteria Many H (None) /hpf Urine Mucus Rare H (None) /hpf - Radiology Data Radiology results: report reviewed ultrasound was obtained. Report was reviewed in its entirety. Heart rate 152. Single viable IUP measuring [address] Emmanuel shows no complicating process. Disposition Clinical Impression: Asymptomatic bacteriuria during , Abdominal pain during Disposition: HOME SELF-CARE Condition: Good Instructions: Abdominal Pain in (ED), Urinary Tract Infection in (ED) Additional Instructions: Increase fluids. Complete medications as prescribed. Follow-up with your primary care physician for recheck in 1-2 days. Follow-up with your bread oven operator for recheck as soon as possible. Return here immediately for any new, worsening, or concerning symptoms. Prescriptions: Cephalexin [Keflex] 500 mg PO Q6H #28 cap Metoclopramide [Reglan] 10 mg PO Q8H PRN #10 tab PRN Reason: Vomiting Is patient prescribed a controlled substance at d/c from ED?: No Referrals: Francisco Mendez MD [Primary Care Provider] - 1-2 days Jelani Cesar DO [Doctor of Osteopathic Medicine] - 1-2 days Time of Disposition: 21:42
[2018-01-10 20:19] LABS: Basophils % (A) 0 %; Eosinophils # (A) 0.1 k/uL (0-0.7); Eosinophils % (A) 1 %; HCT 41.3 % (34.0-46.0); Lymphocytes # (A) 2.2 k/uL (1.0-4.8); Lymphocytes % (A) 20 %; MCH 27.6 pg (25.0-35.0); MCHC 33.8 g/dL (31.0-37.0); MCV 81.6 fL (80.0-100.0); Mean Platelet Volume 6.7; Monocytes # (A) 0.5 k/uL (0-1.0); Monocytes % (A) 5 %; Neutrophils # (A) 7.7 k/uL (1.3-7.7); Neutrophils % (A) 72 %; Platelet Count 244 k/uL (150-450); RBC 5.07 m/uL (3.80-5.40); RDW 14.4 % (11.5-15.5); WBC 10.7 k/uL (3.8-10.6)
[2018-01-10 20:27] LABS: ALT 25 U/L (9-52); AST 23 U/L (14-36); Albumin 3.9 g/dL (3.5-5.0); Alkaline Phosphatase 42 U/L (38-126); Amylase 32 U/L (30-110); Anion Gap 14 mmol/L; Blood Urea Nitrogen 10 mg/dL (7-17); Calcium 9.4 mg/dL (8.4-10.2); Carbon Dioxide 19 mmol/L (22-30); Chloride 107 mmol/L (98-107); Glucose 75 mg/dL (74-99); Lipase 37 U/L (23-300); Potassium 4.1 mmol/L (3.5-5.1); Sodium 140 mmol/L (137-145); Total Bilirubin 0.9 mg/dL (0.2-1.3); Total Protein 6.6 g/dL (6.3-8.2)
[2018-01-10 20:51] LABS: Amorphous Sediment,Urine Occasional /hpf; Appearance,Urine Cloudy (Clear); Bacteria,Urine Many /hpf; Bilirubin,Urine Negative (Negative); Blood,Urine Negative (Negative); Color,Urine Yellow; Glucose,Urine (UA) Negative (Negative); Ketones,Urine Trace (Negative); Leukocyte Esterase,Urine Trace (Negative); Mucus,Urine Rare /hpf; Nitrite,Urine Negative (Negative); PH, Urine 6.5 (5.0-8.0); Protein,Urine Negative (Negative); RBC,Urine 2 /hpf (0-5); Specific Gravity,Urine 1.015 (1.001-1.035); Squamous Epithelial Cell,Urine 7 /hpf (0-4); Urobilinogen,Urine <2.0 mg/dL (<2.0); WBC,Urine 6 /hpf (0-5)
--- NOTE | 2018-01-10 21:19 | US ---
EXAMINATION TYPE: Transabdominal DATE OF EXAM: 10/15/17 COMPARISON: 12/19/2017 CLINICAL HISTORY: Pain. Cramping today EXAM PERFORMED: Transvaginal (TV) and Transabdominal (TA) EXAM MEASUREMENTS: GESTATIONAL AGE / DATING Physician Established: Not yet established Dates by LMP: (12 weeks/1 days) EDC: 07/24/18 Dates by First Scan: (10 weeks/6 days) EDC: 08/02/18 Dates by Current Scan for: (12 weeks/0 days) EDC: 07/25/18 MATERNAL ANATOMY Uterus: 15.7 x 6.8 x 10.1cm Right Ovary: unable to visualize Left Ovary: unable to visualize Post CDS / Adnexa: appears wnl Presence of free fluid: no GESTATION / SURVEY CRL: 5.3cm (12 weeks/0 days) Yolk Sac (normal less than 6mm): 5.3mm Heart Rate: 152 bpm Rhythm: Normal IUP: Viable IUP Date of LMP: 10/17/17 Beta HcG (if available): Not available at this time Technical limitations due to patient's body habitus. Unable to visualize ovaries at this time. single viable IUP 12wks/0days with POLI of 07/25/18. IMPRESSION: No complicating process seen.
[2018-01-10 21:33] VITALS: BP 116/71; PULSE 67; RESP 15; TEMP 97.3
[2018-01-10] MEDS ORDERED: CEPHALEXIN 500MG STARTER PACK 4 CAP BTL PO STA (21:42)
== END 2018-01-10 22:15 | disposition home or self-care (01) ==
LOC: EC 17:18
DX: O98.911 Unspecified maternal infectious and parasitic disease complicating pregnancy, first trimester (principal); R82.71 Bacteriuria; O99.89 Other specified diseases and conditions complicating pregnancy, childbirth and the puerperium; R10.2 Pelvic and perineal pain; R35.0 Frequency of micturition; O21.9 Vomiting of pregnancy, unspecified; Z87.891 Personal history of nicotine dependence; Z79.899 Other long term (current) drug therapy; Z88.1 Allergy status to other antibiotic agents; Z90.49 Acquired absence of other specified parts of digestive tract; Z98.890 Other specified postprocedural states; Z3A.12 12 weeks gestation of pregnancy
CPT/HCPCS: 36415; 76801; 76817; 80053; 81001; 82150; 83690; 85025; 87077; 87086; 87186; 96360; 96361; 99284

== ENCOUNTER 2018-02-07 00:08 | Emergency (ER) | payer OTHER ==
[2018-02-07 00:15] VITALS: BP 149/95; PULSE 74; RESP 17; TEMP 97.8
--- NOTE | 2018-02-07 00:42 | XR ---
EXAMINATION TYPE: XR scapula RT DATE OF EXAM: 02/07/2018 COMPARISON: NONE HISTORY: Shoulder pain TECHNIQUE: 2 views FINDINGS: I see no fracture nor dislocation. Joint spaces are normal. There are no pathologic calcifi cations. IMPRESSION: Negative right shoulder exam.
[2018-02-07] MEDS ORDERED: ACETAMINOPHEN TAB 500 MG TAB PO STA (00:52)
--- NOTE | 2018-02-07 00:52 | ED ---
Fall HPI - General Chief Complaint: Fall Stated Complaint: Fall,Shoulder pain Time Seen by Provider: 02/07/18 00:21 Source: patient Mode of arrival: ambulatory - History of Present Illness Initial Comments: 32-year-old female patient presents to the emergency department today for evaluation of right posterior shoulder pain after an injury today. Patient states that around 6 PM this evening she was sliding down off of a counter when she hit her shoulder on a cabinet. Patient denies falling, hitting her head, losing consciousness during this. Patient states that she has increased pain to the right posterior shoulder whenever she moves her arm. She denies any difficulty breathing. Denies any other injuries. She denies any numbness or tingling to the arm. Patient denies any headache, neck pain, back pain, chest pain, shortness of breath, dizziness, weakness, abdominal pain, nausea, vomiting , or difficulties with bowel movements or urination. - Related Data Home Medications Medication Instructions Recorded Confirmed Xnc-Cjog-Ixypl Acid 1 cap PO HS 01/02/18 01/10/18 [-U Capsule (formulary)] Previous Rx's Medication Instructions Recorded Cephalexin [Keflex] 500 mg PO Q6H #28 cap 01/10/18 Metoclopramide [Reglan] 10 mg PO Q8H PRN #10 tab 01/10/18 Allergies Allergy/AdvReac Type Severity Reaction Status Date / Time cephradine [From Velosef] Allergy Intermediate Rash/Hives Verified 02/07/18 00: 15 Review of Systems ROS Statement: Those systems with pertinent positive or pertinent negative responses have been documented in the HPI. ROS Other: All systems not noted in ROS Statement are negative. Past Medical History Past Medical History: Asthma, Hypertension Additional Past Medical History / Comment(s): PCOS History of Any Multi-Drug Resistant Organisms: None Reported Past Surgical History: Adenoidectomy, Section, Cholecystectomy, Tonsillectomy Past Psychological History: Anxiety, Depression Smoking Status: Current some day smoker Past Alcohol Use History: None Reported Past Drug Use History: None Reported - Past Family History Mother Family Medical History: Diabetes Mellitus, Hypertension General Exam Limitations: no limitations General appearance: alert, in no apparent distress, other (This is a well- developed, well-nourished adult female patient in no acute distress. Vital signs upon presentation are temperature 97.8F, pulse 74, respirations 17, blood pressure 149/95, pulse ox 100% on room air.) Head exam: Present: atraumatic, normocephalic, normal inspection Eye exam: Present: normal appearance, PERRL, EOMI. Absent: scleral icterus, conjunctival injection, periorbital swelling ENT exam: Present: normal exam, normal oropharynx, mucous membranes moist Neck exam: Present: normal inspection, full ROM, other (Nontender, no step-off, no deformity to firm midline palpation of the posterior cervical spine. Full range of motion without pain or limitation.). Absent: tenderness, meningismus, lymphadenopathy Respiratory exam: Present: normal lung sounds bilaterally. Absent: respiratory distress, wheezes, rales, rhonchi, stridor Cardiovascular Exam: Present: regular rate, normal rhythm, normal heart sounds. Absent: systolic murmur, diastolic murmur, rubs, gallop, clicks Back exam: Present: normal inspection, other (Nontender, no step-off, no deformity to firm midline palpation of the thoracic and lumbar vertebrae. Full range of motion without pain or limitation.). Absent: vertebral tenderness Neurological exam: Present: alert, oriented X3, CN II-XII intact Psychiatric exam: Present: normal affect, normal mood Skin exam: Present: warm, dry, intact, normal color. Absent: rash Course Vital Signs 02/07/18 00:13 Temperature 97.8 F Pulse Rate 74 Respiratory 17 Rate Blood Pressure 149/95 O2 Sat by Pulse 100 Oximetry Medical Decision Making - Medical Decision Making 32-year-old female patient presented to the emergency department today for evaluation of right posterior shoulder pain after a and injury earlier today. Physical examination is unremarkable. She does have some superficial tenderness to the right posterior shoulder. Patient is 16 weeks , we did discuss x-ray and risks versus benefits. Patient does agree to proceed with the x-ray with shielding. X-rays negative for any acute fractures of the scapular evidence of injury to the shoulder. Patient will be discharged home with instructions take Tylenol for pain control. She is instructed to apply ice to the shoulder. She is instructed to follow-up with her primary care physician for recheck in 1-2 days. Return parameters discussed in detail. She verbalizes understanding and agrees with this plan. - Radiology Data Radiology results: report reviewed, image reviewed Two-view x-ray of the right scapula was obtained. This no fracture or dislocation. Joint spaces are normal. There are no pathologic calcifications. Impression by Dr. Emmanuel shows negative right shoulder exam. Disposition Clinical Impression: Contusion of right shoulder Disposition: HOME SELF-CARE Condition: Good Instructions: Contusion in Adults (ED) Additional Instructions: Take tylenol for pain control. Apply ice to the painful areas. Return here for any new, worsening, or concerning symptoms. Is patient prescribed a controlled substance at d/c from ED?: No Referrals: Francisco Mendez MD [Primary Care Provider] - 1-2 days Time of Disposition: 00:52
== END 2018-02-07 01:24 | disposition home or self-care (01) ==
LOC: EC 00:08
DX: S40.011A Contusion of right shoulder, initial encounter (principal); F17.200 Nicotine dependence, unspecified, uncomplicated; Z88.1 Allergy status to other antibiotic agents; W17.89XA Other fall from one level to another, initial encounter; Y93.89 Activity, other specified; Y92.000 Kitchen of unspecified non-institutional (private) residence as the place of occurrence of the external cause
CPT/HCPCS: 99283

== ENCOUNTER 2018-03-30 23:42 | Outpatient (CLI) | payer OTHER ==
[2018-03-31 00:08] LABS: Appearance,Urine Cloudy (Clear); Bacteria,Urine Many /hpf; Bilirubin,Urine Negative (Negative); Blood,Urine Negative (Negative); Color,Urine Yellow; Glucose,Urine (UA) Negative (Negative); Ketones,Urine Negative (Negative); Leukocyte Esterase,Urine Large (Negative); Mucus,Urine Many /hpf; Nitrite,Urine Positive (Negative); PH, Urine 6.5 (5.0-8.0); Protein,Urine 1+ (Negative); Specific Gravity,Urine 1.023 (1.001-1.035); Squamous Epithelial Cell,Urine 30 /hpf (0-4); WBC,Urine 25 /hpf (0-5)
[2018-03-31] MEDS ORDERED: NITROFURANTOIN MONOHYD/M-CRYST 100 MG CAP PO STA (00:17)
[2018-03-31 00:27] VITALS: BP 125/69; PULSE 82; RESP 16; TEMP 96.4
--- NOTE | 2018-04-29 08:52 | P.MSEPDOC ---
Presenting Problems - Arrival Data Date of Arrival on Unit: 03/30/18 Time of Arrival on Unit: 23:42 Mode of Transport: Ambulatory Vital Signs - Temperature Temperature: 96.4 F Temperature Source: Tympanic - Pulse Right Brachial Pulse Rate: 82 Pulse Assessment Method: Automatic Cuff - Respirations Respiratory Rate: 16 Oxygen Delivery Method: Room Air O2 Sat by Pulse Oximetry: 97 - Blood Pressure Right Arm Blood Pressure: 125/69 Blood Pressure Mean: 87 Blood Pressure Source: Automatic Cuff Medical Screen Scoring (Post) - Cervical Exam Dilation: Exam Deferred Effacement: Exam Deferred - Uterine Contractions Frequency: N/A Duration: N/A Intensity: N/A - Maternal Vital Signs Maternal Temperature: N/A - Maternal Trauma Maternal Trauma: N/A - Assessment Heart Rate: 140 - Total Score Total Score (Post): 0 - Post Treatment Level of Risk Post Treatment Level of Risk: Low (0-5) Physician Notification (Post) - Physician Notified Physician Notified Date: 03/31/18 Physician Notified Time: 00:15 Spoke With: mono New Order Received: Yes - Notification Comment Comment: Macrobid 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 Disposition - Disposition OB Disposition: Discharge to home, Written follow up instructions reviewed Discharge Date: 03/31/18 Discharge Time: 00:34 I agree with the RN Medical Screening Exam: Yes Risk & Benefit of care provided described in d/c instruction: Yes Diagnosis: URINARY TRACT INFECTION, SITE NOT SPECIFIED
== END 2018-03-31 00:34 | disposition home or self-care (01) ==
LOC: FBPOP 23:42
PROVIDERS: ATTEND Obstetrics & Gynecology
DX: O23.40 Unspecified infection of urinary tract in pregnancy, unspecified trimester (principal); Z3A.00 Weeks of gestation of pregnancy not specified
CPT/HCPCS: 81001; 87086; 87077; 87186; G0463; 99213

== ENCOUNTER 2018-05-06 13:43 | Outpatient (CLI) | payer OTHER ==
[2018-05-06 14:15] VITALS: BP 123/69; PULSE 84; RESP 20; TEMP 98.6
--- NOTE | 2018-05-19 08:50 | P.MSEPDOC ---
Presenting Problems - Arrival Data Date of Arrival on Unit: 05/06/18 Time of Arrival on Unit: 13:59 Mode of Transport: Ambulatory - Complaint OB-Reason for Admission/Chief Complaint: Rule Out PROM Comment: pt c/o leaking clear fluid since this morning. pt has denied any contractions or bleeding. pt is being treated for UTI at present Medical History - Information : 2 Para: 1 Term: 1 : 0 Abortions: Spontaneous or Elective: 0 Number of Living Children: 1 - Gestational Age Gestational Age by POLI (wks/days): 27 Weeks and 3 Days Review of Systems - Review of Systems Constitutional: No problems Breast: No problems ENT: No problems Cardiovascular: No problems Respiratory: No problems Gastrointestinal: No problems Genitourinary: No problems Musculoskeletal: No problems Neurological: No problems Skin: No problems Vital Signs - Temperature Temperature: 98.6 F Temperature Source: Oral - Pulse Right Brachial Pulse Rate: 84 Pulse Assessment Method: Automatic Cuff - Respirations Respiratory Rate: 20 Oxygen Delivery Method: Room Air - Blood Pressure Right Arm Blood Pressure: 123/69 Blood Pressure Mean: 87 Blood Pressure Source: Automatic Cuff Medical Screen Scoring (Pre) - Uterine Contractions Frequency: N/A Duration: N/A Intensity: N/A - Maternal Vital Signs Maternal Temperature: N/A Maternal Blood Pressure: N/A Signs of Preeclampsia: N/A Maternal Respirations: N/A - Pain Assessment Pain Scale Used: Numeric (1 - 10) Pain Intensity: 0 Pain Management Goal: 0 Pain Behavior: Vocalization - Maternal Trauma Maternal Trauma: N/A - Assessment Baseline FHR: 130 Heart Rate - NICHD Category: Category I (Normal) = 0 Position: N/A Station: N/A - Total Score Total Score (Pre): 0 Medical Screen Scoring (Post) - Cervical Exam Dilation: 0 cm = 0 Membranes: Intact - Total Score Total Score (Post): 0 Physician Notification (Post) - Physician Notified Physician Notified Date: 05/06/18 Physician Notified Time: 14:25 Spoke With: dr lal New Order Received: Yes - Notification Comment Comment: amnisure negative cervix closed may discharge to home with instructions Disposition - Disposition OB Disposition: Discharge to home Discharge Date: 05/06/18 Discharge Time: 14:40 I agree with the RN Medical Screening Exam: Yes Risk & Benefit of care provided described in d/c instruction: Yes Diagnosis: FALSE LABOR BEFORE 37 COMPLETED WEEKS OF GEST, SECOND TRI
== END 2018-05-06 14:40 | disposition home or self-care (01) ==
LOC: FBPOP 13:43
PROVIDERS: ATTEND Obstetrics & Gynecology
DX: O47.02 False labor before 37 completed weeks of gestation, second trimester (principal); Z3A.27 27 weeks gestation of pregnancy
CPT/HCPCS: 84112; G0463; 99213

== ENCOUNTER 2018-06-15 13:15 | Outpatient (CLI) | payer OTHER ==
[2018-06-15 14:34] VITALS: BP 130/78; PULSE 94; RESP 16; TEMP 96.9
--- NOTE | 2018-06-17 08:50 | P.MSEPDOC ---
Presenting Problems - Arrival Data Date of Arrival on Unit: 06/15/18 Time of Arrival on Unit: 13:15 Mode of Transport: Ambulatory - Complaint OB-Reason for Admission/Chief Complaint: Pain Comment: right side flank pain, rates 5 on scale of 0-10 Medical History - Information : 2 Para: 1 Term: 1 : 0 Abortions: Spontaneous or Elective: 0 Number of Living Children: 1 - Gestational Age Gestational Age by POLI (wks/days): 34 Weeks and 0 Days - History Comment: current uti, did not start rx Review of Systems - Review of Systems Constitutional: No problems Breast: No problems ENT: No problems Cardiovascular: No problems Respiratory: No problems Gastrointestinal: No problems Genitourinary: Dysuria Musculoskeletal: No problems Neurological: No problems Skin: No problems Vital Signs - Temperature Temperature: 96.9 F Temperature Source: Temporal Artery Scan - Pulse Right Sitting Pulse Rate: 94 Pulse Assessment Method: Automatic Cuff - Respirations Respiratory Rate: 16 Oxygen Delivery Method: Room Air - Blood Pressure Right Arm Blood Pressure: 130/78 Blood Pressure Mean: 95 Blood Pressure Source: Automatic Cuff Medical Screen Scoring (Pre) - Cervical Exam Dilation: Exam Deferred Effacement: Exam Deferred Membranes: Intact - Uterine Contractions Frequency: N/A Duration: N/A Intensity: N/A - Maternal Vital Signs Maternal Temperature: N/A Maternal Blood Pressure: N/A Signs of Preeclampsia: N/A Maternal Respirations: N/A - Pain Assessment Pain Location and Character: Right, Abdomen Pain Scale Used: Numeric (1 - 10) Pain Intensity: 5 Pain Management Goal: 5 Pain Description: *Acute Pain Frequency: Intermittent Pain Duration Units: Days Pain Behavior: None Exhibited - Maternal Trauma Maternal Trauma: N/A - Assessment Baseline FHR: 115 Heart Rate - NICHD Category: Category I (Normal) = 0 NST: Reactive Position: N/A Station: N/A - Total Score Total Score (Pre): 0 - Level of Risk Level of Risk: Low (0-5) Physician Notification (Pre) - Physician Notified Physician Notified Date: 06/15/18 Physician Notified Time: 14:08 Physician/Practitioner Notifed:: Jagdish Hinkle Order Received: Yes (D/c home) Disposition - Disposition OB Disposition: Discharge to home Discharge Date: 06/15/18 Discharge Time: 14:15 I agree with the RN Medical Screening Exam: Yes Risk & Benefit of care provided described in d/c instruction: Yes Diagnosis: URINARY TRACT INFECTION, SITE NOT SPECIFIED
== END 2018-06-15 14:15 | disposition home or self-care (01) ==
LOC: FBPOP 13:15
PROVIDERS: ATTEND Obstetrics & Gynecology
DX: O23.43 Unspecified infection of urinary tract in pregnancy, third trimester (principal); Z3A.34 34 weeks gestation of pregnancy
CPT/HCPCS: 59025; G0463; 99213

== ENCOUNTER 2018-06-24 10:59 | Outpatient (CLI) | payer OTHER ==
[2018-06-24 11:31] LABS: Appearance,Urine Cloudy (Clear); Bacteria,Urine Rare /hpf; Bilirubin,Urine Negative (Negative); Blood,Urine Negative (Negative); Color,Urine Yellow; Glucose,Urine (UA) Negative (Negative); Ketones,Urine Negative (Negative); Leukocyte Esterase,Urine Negative (Negative); Mucus,Urine Rare /hpf; Nitrite,Urine Negative (Negative); Protein,Urine Negative (Negative); RBC,Urine <1 /hpf (0-5); Squamous Epithelial Cell,Urine 8 /hpf (0-4); Urobilinogen,Urine <2.0 mg/dL (<2.0); WBC,Urine 1 /hpf (0-5)
[2018-06-24 11:36] VITALS: PULSE 90; RESP 15; TEMP 96.6
[2018-06-24 12:09] VITALS: BP 134/72
--- NOTE | 2018-06-25 08:59 | P.MSEPDOC ---
Presenting Problems - Arrival Data Date of Arrival on Unit: 06/24/18 Time of Arrival on Unit: 11:05 Mode of Transport: Wheelchair - Complaint OB-Reason for Admission/Chief Complaint: Other Comment: cramping Medical History - Information : 2 Para: 1 Term: 0 : 1 Abortions: Spontaneous or Elective: 0 Number of Living Children: 1 - Gestational Age Gestational Age by POLI (wks/days): 35 Weeks and 5 Days Review of Systems - Review of Systems Constitutional: No problems Breast: No problems ENT: No problems Cardiovascular: No problems Respiratory: No problems Gastrointestinal: No problems Genitourinary: No problems Musculoskeletal: No problems Neurological: No problems Skin: No problems Vital Signs - Temperature Temperature: 96.6 F Temperature Source: Temporal Artery Scan - Pulse Brachial Pulse Rate: 90 Pulse Assessment Method: Automatic Cuff - Respirations Respiratory Rate: 15 Oxygen Delivery Method: Room Air O2 Sat by Pulse Oximetry: 98 - Blood Pressure Right Arm Supine Blood Pressure: 134/72 Blood Pressure Mean: 92 Blood Pressure Source: Automatic Cuff Medical Screen Scoring (Pre) - Pain Assessment Pain Scale Used: Numeric (1 - 10) Pain Intensity: 4 Pain Description: *Acute, Cramping Pain Frequency: Intermittent Pain Duration Units: Hours Pain Behavior: Vocalization Pain Aggravating Factors: None - Maternal Trauma Maternal Trauma: N/A - Assessment Baseline FHR: 135 Heart Rate - NICHD Category: Category I (Normal) = 0 NST: Reactive Position: N/A Station: N/A - Total Score Total Score (Pre): 0 Medical Screen Scoring (Post) - Cervical Exam Dilation: 0 cm = 0 Membranes: Intact - Uterine Contractions Frequency: > 5 minutes apart = 1 Duration: N/A Intensity: N/A - Maternal Vital Signs Maternal Temperature: N/A Maternal Blood Pressure: N/A Signs of Preeclampsia: N/A Maternal Respirations: N/A - Pain Assessment Pain Location and Character: Abdomen Pain Scale Used: Numeric (1 - 10) Pain Intensity: 5 Pain Management Goal: 2 Pain Description: *Acute, Cramping Pain Radiation Location: none Pain Frequency: Constant Pain Duration: 1 Pain Duration Units: Days Pain Behavior: Vocalization Effects of Pain: none Pain Aggravating Factors: Changing Position Pharmacological Interventions: PRN Medication Non-Pharmacological Interventions: Reduce Environmental Stimuli - Maternal Trauma Maternal Trauma: N/A - Assessment Heart Rate: 130 Heart Rate - NICHD Category: Category I (Normal) = 0 NST: Reactive Position: N/A Station: N/A - Total Score Total Score (Post): 1 - Post Treatment Level of Risk Post Treatment Level of Risk: Low (0-5) Physician Notification (Post) - Physician Notified Physician Notified Date: 06/24/18 Physician Notified Time: 12:00 Physician/Practitioner Notified:: Dr Cesar Spoke With: Telephone New Order Received: Yes - Notification Comment Comment: pt was here for cramping, occassional contracations per TOCO, cervix closed thick high, UA WNL, FHR reactive, 1sst BP slightly elevated 2 repeats WNL , order for Discharge Disposition - Disposition OB Disposition: Discharge to home Discharge Date: 06/24/18 Discharge Time: 12:05 I agree with the RN Medical Screening Exam: Yes Risk & Benefit of care provided described in d/c instruction: Yes Diagnosis: FALSE LABOR BEFORE 37 COMPLETED WEEKS OF GEST, THIRD TRI
== END 2018-06-24 12:05 | disposition home or self-care (01) ==
LOC: FBPOP 10:59
PROVIDERS: ATTEND Obstetrics & Gynecology
DX: O47.03 False labor before 37 completed weeks of gestation, third trimester (principal); Z3A.35 35 weeks gestation of pregnancy
CPT/HCPCS: 59025; 84112; 81001; G0463; 99213

== ENCOUNTER 2018-07-01 02:20 | Outpatient (CLI) | payer OTHER ==
[2018-07-01 03:11] VITALS: BP 136/84; PULSE 82; RESP 16; TEMP 96.5
--- NOTE | 2018-07-10 07:42 | P.MSEPDOC ---
Presenting Problems - Arrival Data Date of Arrival on Unit: 07/01/18 Time of Arrival on Unit: 02:20 Mode of Transport: Wheelchair - Complaint Comment: cramping Medical History - Information : 2 Para: 1 Term: 1 : 0 Abortions: Spontaneous or Elective: 0 Number of Living Children: 1 - Gestational Age Gestational Age by POLI (wks/days): 35 Weeks and 3 Days Review of Systems - Review of Systems Constitutional: No problems Breast: No problems ENT: No problems Cardiovascular: No problems Respiratory: No problems Gastrointestinal: No problems Genitourinary: No problems Musculoskeletal: No problems Neurological: No problems Skin: No problems Vital Signs - Temperature Temperature: 96.5 F Temperature Source: Temporal Artery Scan - Pulse Right Brachial Pulse Rate: 82 Pulse Assessment Method: Automatic Cuff - Respirations Respiratory Rate: 16 Oxygen Delivery Method: Room Air O2 Sat by Pulse Oximetry: 99 - Blood Pressure Right Arm Blood Pressure: 136/84 Blood Pressure Mean: 101 Blood Pressure Source: Automatic Cuff Medical Screen Scoring (Pre) - Cervical Exam Dilation: 1-3 cm = 1 Membranes: Intact - Uterine Contractions Frequency: < 36 weeks = 6 - Maternal Vital Signs Maternal Temperature: N/A Maternal Blood Pressure: N/A Signs of Preeclampsia: N/A Maternal Respirations: N/A - Pain Assessment Pain Location and Character: Lower, Abdomen Pain Scale Used: Numeric (1 - 10) Pain Intensity: 6 Pain Description: Cramping Pain Frequency: Intermittent Pain Duration Units: Minutes Pain Behavior: None Exhibited Pain Aggravating Factors: Contractions - Assessment Baseline FHR: 120 Heart Rate - NICHD Category: Category I (Normal) = 0 NST: Reactive Position: N/A Station: N/A - Total Score Total Score (Pre): 7 - Level of Risk Level of Risk: Medium (6-9) Physician Notification (Pre) - Physician Notified Physician Notified Date: 07/01/18 Physician Notified Time: 02:58 Physician/Practitioner Notifed:: Dr. Cesar Spoke With: Dr. Cesar New Order Received: Yes - Notification Comment Comment: Dr. Cesar called and given report on pt in triage. Pt c/o. Vs wnl. Reactive nst. Vag exam of fingertip/thick/high. Orders recieved to send urine for culture and sensitivity. To d/c pt to home and educate pt to package pick up prescription in am. Disposition - Disposition OB Disposition: Discharge to home Discharge Date: 07/01/18 Discharge Time: 03:05 I agree with the RN Medical Screening Exam: Yes Risk & Benefit of care provided described in d/c instruction: Yes Diagnosis: FALSE LABOR BEFORE 37 COMPLETED WEEKS OF GEST, THIRD TRI
== END 2018-07-01 03:05 | disposition home or self-care (01) ==
LOC: FBPOP 02:20
PROVIDERS: ATTEND Obstetrics & Gynecology
DX: O47.03 False labor before 37 completed weeks of gestation, third trimester (principal); Z3A.35 35 weeks gestation of pregnancy
CPT/HCPCS: 59025; 87086; 87077; 87186; G0463; 99213

== ENCOUNTER 2018-07-04 16:18 | Outpatient (CLI) | payer OTHER ==
[2018-07-04 17:45] VITALS: BP 135/82; PULSE 100; RESP 18; TEMP 97.9
--- NOTE | 2018-07-31 12:16 | P.MSEPDOC ---
Presenting Problems - Arrival Data Date of Arrival on Unit: 07/04/18 Time of Arrival on Unit: 16:30 Mode of Transport: Ambulatory - Complaint OB-Reason for Admission/Chief Complaint: Other Comment: Cramping Medical History - Information : 2 Para: 1 Term: 0 : 1 Abortions: Spontaneous or Elective: 0 Number of Living Children: 1 - Gestational Age Gestational Age by POLI (wks/days): 36 Weeks and 0 Days - History Complications: Prior Review of Systems - Review of Systems Constitutional: No problems Breast: No problems ENT: No problems Cardiovascular: No problems Respiratory: No problems Gastrointestinal: No problems Genitourinary: No problems Musculoskeletal: No problems Neurological: No problems Skin: No problems Vital Signs - Temperature Temperature: 97.9 F Temperature Source: Oral - Pulse Pulse Oximetery Pulse Rate: 100 Pulse Assessment Method: Pulse Oximetry - Respirations Respiratory Rate: 18 - Blood Pressure Right Arm Sitting Blood Pressure: 135/82 Blood Pressure Mean: 99 Blood Pressure Source: Automatic Cuff Medical Screen Scoring (Pre) - Cervical Exam Dilation: 0 cm = 0 Membranes: Intact - Uterine Contractions Frequency: < 36 weeks = 6 Duration: N/A Intensity: N/A - Maternal Vital Signs Maternal Temperature: N/A Maternal Blood Pressure: N/A Maternal Respirations: N/A - Pain Assessment Pain Location and Character: Abdomen Pain Scale Used: Numeric (1 - 10) Pain Intensity: 5 Pain Description: Cramping Pain Frequency: Constant Pain Duration Units: Days Pain Behavior: None Exhibited Pain Aggravating Factors: None Non-Pharmacological Interventions: Distraction, Emotional/Spiritual Support, Environmental Control, Reduce Environmental Stimuli - Maternal Trauma Maternal Trauma: N/A - Assessment Baseline FHR: 130 Heart Rate - NICHD Category: Category I (Normal) = 0 NST: Reactive Position: N/A Station: N/A - Total Score Total Score (Pre): 6 - Level of Risk Level of Risk: Medium (6-9) Medical Screen Scoring (Post) - Post Treatment Level of Risk Post Treatment Level of Risk: Medium (6-9) Physician Notification (Post) - Physician Notified Physician Notified Date: 07/04/18 Physician Notified Time: 17:15 Physician/Practitioner Notified:: Dr Dubon Spoke With: Dr Dubon New Order Received: Yes Disposition - Disposition OB Disposition: Discharge to home, Written follow up instructions reviewed Discharge Date: 07/04/18 Discharge Time: 17:20 I agree with the RN Medical Screening Exam: Yes Risk & Benefit of care provided described in d/c instruction: Yes Diagnosis: FALSE LABOR AT OR AFTER 37 COMPLETED WEEKS OF GESTATION
== END 2018-07-04 17:20 | disposition home or self-care (01) ==
LOC: FBPOP 16:18
PROVIDERS: ATTEND Obstetrics & Gynecology
DX: O47.1 False labor at or after 37 completed weeks of gestation (principal); Z3A.36 36 weeks gestation of pregnancy
CPT/HCPCS: 59025; G0463; 99213

== ENCOUNTER 2018-07-12 22:25 | Outpatient (CLI) | payer OTHER ==
[2018-07-12 23:23] VITALS: BP 149/93; PULSE 73; RESP 16; TEMP 98
[2018-07-12 23:32] LABS: Basophils % (A) 0 %; Eosinophils # (A) 0.2 k/uL (0-0.7); Eosinophils % (A) 2 %; HCT 36.8 % (34.0-46.0); HGB 12.2 gm/dL (11.4-16.0); Lymphocytes # (A) 2.4 k/uL (1.0-4.8); Lymphocytes % (A) 20 %; MCH 27.6 pg (25.0-35.0); MCHC 33.3 g/dL (31.0-37.0); Mean Platelet Volume 7.5; Monocytes # (A) 0.8 k/uL (0-1.0); Monocytes % (A) 7 %; Neutrophils # (A) 8.6 k/uL (1.3-7.7); Neutrophils % (A) 70 %; Platelet Count 225 k/uL (150-450); RBC 4.43 m/uL (3.80-5.40); RDW 15.2 % (11.5-15.5); WBC 12.3 k/uL (3.8-10.6)
[2018-07-12 23:43] LABS: ALT 21 U/L (9-52); AST 14 U/L (14-36); Blood Urea Nitrogen 16 mg/dL (7-17); LDH 300 U/L (313-618); Uric Acid 6.4 mg/dL (3.7-7.4)
[2018-07-13 00:01] LABS: Amorphous Sediment,Urine Rare /hpf; Appearance,Urine Cloudy (Clear); Bacteria,Urine Rare /hpf; Bilirubin,Urine Negative (Negative); Blood,Urine Negative (Negative); Color,Urine Yellow; Glucose,Urine (UA) Negative (Negative); Ketones,Urine Negative (Negative); Leukocyte Esterase,Urine Negative (Negative); Mucus,Urine Rare /hpf; Nitrite,Urine Negative (Negative); PH, Urine 6.5 (5.0-8.0); Protein,Urine Trace (Negative); RBC,Urine <1 /hpf (0-5); Specific Gravity,Urine 1.016 (1.001-1.035); Squamous Epithelial Cell,Urine 11 /hpf (0-4); Urobilinogen,Urine <2.0 mg/dL (<2.0); WBC,Urine 1 /hpf (0-5)
--- NOTE | 2018-07-13 07:58 | P.MSEPDOC ---
Presenting Problems - Arrival Data Date of Arrival on Unit: 07/12/18 Time of Arrival on Unit: 22:25 Mode of Transport: Wheelchair - Complaint OB-Reason for Admission/Chief Complaint: Rule Out SROM Comment: Clear fluid at 2030 Medical History - Information : 2 Para: 1 Term: 0 : 1 Abortions: Spontaneous or Elective: 0 Number of Living Children: 1 - Gestational Age Gestational Age by POLI (wks/days): 37 Weeks and 0 Days - History Complications: Prior , Smoker Review of Systems - Review of Systems Constitutional: No problems Breast: No problems ENT: No problems Cardiovascular: No problems Respiratory: No problems Gastrointestinal: No problems Genitourinary: No problems Musculoskeletal: No problems Neurological: No problems Skin: No problems Vital Signs - Temperature Temperature: 98 F Temperature Source: Oral - Pulse Right Brachial Pulse Rate: 73 Pulse Assessment Method: Automatic Cuff - Respirations Respiratory Rate: 16 Oxygen Delivery Method: Room Air O2 Sat by Pulse Oximetry: 99 - Blood Pressure Right Arm Blood Pressure: 149/93 Blood Pressure Mean: 111 Blood Pressure Source: Automatic Cuff Medical Screen Scoring (Pre) - Cervical Exam Dilation: 0 cm = 0 Membranes: Intact - Uterine Contractions Frequency: > 5 minutes apart = 1 Duration: > 40 seconds = 2 Intensity: N/A - Maternal Vital Signs Maternal Temperature: N/A Maternal Blood Pressure: N/A Signs of Preeclampsia: N/A Maternal Respirations: N/A - Pain Assessment Pain Location and Character: Abdomen Pain Scale Used: Numeric (1 - 10) Pain Intensity: 9 Pain Management Goal: 3 Pain Description: Cramping Pain Radiation Location: no Pain Frequency: Intermittent Pain Duration: 2 Pain Duration Units: Hours Pain Behavior: Vocalization Pain Aggravating Factors: Contractions - Maternal Trauma Maternal Trauma: N/A - Assessment Baseline FHR: 120 Heart Rate - NICHD Category: Category I (Normal) = 0 - Total Score Total Score (Pre): 3 - Level of Risk Level of Risk: Low (0-5) Physician Notification (Pre) - Physician Notified Physician Notified Date: 07/12/18 Physician Notified Time: 23:09 Spoke With: Radha Hinkle Order Received: Yes - Notification Comment Comment: [facility] labs Medical Screen Scoring (Post) - Cervical Exam Dilation: 0 cm = 0 Effacement: Exam Deferred Membranes: Intact - Uterine Contractions Frequency: > 5 minutes apart = 1 Duration: > 40 seconds = 2 - Maternal Vital Signs Maternal Temperature: N/A Maternal Blood Pressure: Systolic >139 = 2 Signs of Preeclampsia: N/A Maternal Respirations: N/A - Maternal Trauma Maternal Trauma: N/A - Assessment Heart Rate: 120 Heart Rate - NICHD Category: Category I (Normal) = 0 NST: Reactive - Total Score Total Score (Post): 5 - Post Treatment Level of Risk Post Treatment Level of Risk: Low (0-5) Physician Notification (Post) - Physician Notified Physician Notified Date: 07/13/18 Physician Notified Time: 00:27 Spoke With: Radha New Order Received: Yes - Notification Comment Comment: Report on pih labs, bps, no cervical change. Orders for pt to follow up for bp checks 07/16. Disposition - Disposition OB Disposition: Discharge to home, Written follow up instructions reviewed Discharge Date: 07/13/18 Discharge Time: 00:32 I agree with the RN Medical Screening Exam: Yes Risk & Benefit of care provided described in d/c instruction: Yes Diagnosis: FALSE LABOR AT OR AFTER 37 COMPLETED WEEKS OF GESTATION Additional Diagnoses: Gestational hypertension
== END 2018-07-13 00:32 | disposition home or self-care (01) ==
LOC: FBPOP 22:25
PROVIDERS: ATTEND Obstetrics & Gynecology
DX: O47.1 False labor at or after 37 completed weeks of gestation (principal); Z3A.37 37 weeks gestation of pregnancy
CPT/HCPCS: 59025; 82570; 84156; 82565; 83615; 84450; 84460; 84520; 84550; 85025; 81001; G0463; 99215

== ENCOUNTER 2018-07-13 11:39 | Inpatient (IN) | payer OTHER ==
[2018-07-13] MEDS ORDERED: CITRIC ACID-SODIUM CITRATE 15 ML CUP PO ONE (12:45)
[2018-07-13] MEDS ORDERED: LACTATED RINGERS 1,000 ML IV ONE (12:45)
[2018-07-13 13:36] VITALS: BMI 48.7
[2018-07-13 15:56] LABS: Basophils % (A) 0 %; Eosinophils # (A) 0.2 k/uL (0-0.7); Eosinophils % (A) 1 %; HCT 37.1 % (34.0-46.0); HGB 11.7 gm/dL (11.4-16.0); Lymphocytes # (A) 2.5 k/uL (1.0-4.8); Lymphocytes % (A) 20 %; MCH 25.9 pg (25.0-35.0); MCHC 31.5 g/dL (31.0-37.0); MCV 82.2 fL (80.0-100.0); Mean Platelet Volume 7.4; Monocytes # (A) 0.9 k/uL (0-1.0); Monocytes % (A) 7 %; Neutrophils # (A) 8.7 k/uL (1.3-7.7); Neutrophils % (A) 68 %; Platelet Count 255 k/uL (150-450); RBC 4.51 m/uL (3.80-5.40); RDW 15.4 % (11.5-15.5); WBC 12.7 k/uL (3.8-10.6)
[2018-07-13] MEDS ORDERED: CLINDAMYCIN 900 MG in DEXTROSE 5% IN WATER 50 ML IVPB ONE ×2 (16:00)
[2018-07-13 16:17] LABS: INR 0.9 (<1.2); Partial Thromboplastin Time 22.3 sec (22.0-30.0); Prothrombin Time 9.5 sec (9.0-12.0)
--- NOTE | 2018-07-13 17:12 | P.HPOB ---
History of Present Illness H&P Date: 07/13/18 Chief Complaint: Headache, gestational hypertension This is a 33-year-old female 2 para 1 with an estimated date of confinement of 08/02/2018, estimated gestational age of 37 and one sevenths weeks, who presents to labor and delivery this morning complaining of a headache that has not gone away from since yesterday. She was seen in triage last night for possible spontaneous rupture membranes and amnisure was negative. At that time she did have a few elevated blood pressures above 140/ 90. She also had some normal blood pressures. Labs were done and preeclampsia was ruled out. However when I reviewed her record from the office, all of her blood pressures were in the 110s to 120s over 70s to 80s. I also found an elevated blood pressure on a triage visit approximate 2 weeks ago that showed a blood pressure of 144/81. Her blood pressures initially were normal when she arrived to triage however she did have one blood pressure with a diastolic of 91. She therefore meets the criteria for gestational hypertension and it does concern me that her headache has not gone away with Tylenol. She denies any other symptoms such as blurry vision or epigastric pain. care has been with Dr. Cesar and has been complicated by frequent urinary tract infections during this . She did have an ultrasound in the office on Saturday and was told the baby's weight was 8 lbs. 13 oz. She was not told any other details. Obstetrical history: . History of 1 delivery after failed induction due to oligohydramnios at 36 weeks. That infant weight was 6 lbs. 8 oz. Review of Systems Constitutional: Denies chills, Denies fever Eyes: denies blurred vision, denies pain Ears, nose, mouth and throat: Denies headache, Denies sore throat Cardiovascular: Denies chest pain, Denies shortness of breath Respiratory: Denies cough Gastrointestinal: Reports abdominal pain (Irregular contractions) Genitourinary: Reports pelvic pain, Reports Musculoskeletal: Reports low back pain Neurological: Denies numbness, Denies weakness Psychiatric: Reports anxiety, Reports depression Past Medical History Past Medical History: Asthma, Hypertension Additional Past Medical History / Comment(s): PCOS History of Any Multi-Drug Resistant Organisms: None Reported Past Surgical History: Adenoidectomy, Section, Cholecystectomy, Tonsillectomy Past Anesthesia/Blood Transfusion Reactions: No Reported Reaction Past Psychological History: Anxiety, Depression Smoking Status: Former smoker Past Alcohol Use History: None Reported Past Drug Use History: None Reported - Past Family History Mother Family Medical History: Diabetes Mellitus, Hypertension Medications and Allergies Home Medications Medication Instructions Recorded Confirmed Type Ewe-Agch-Ktrwc Acid 1 cap PO HS 01/02/18 07/13/18 History [-U Capsule (formulary)] busPIRone HCl [Buspar] 5 mg PO DAILY 07/12/18 07/13/18 History Allergies Allergy/AdvReac Type Severity Reaction Status Date / Time cephradine [From Velosef] Allergy Intermediate Rash/Hives Verified 07/13/18 11: 48 Exam Osteopathic Statement: *. No significant issues noted on an osteopathic structural exam other than those noted in the History and Physical/Consult. Vital Signs Temp Pulse Resp BP Pulse Ox 07/13/18 12:50 96.4 F L 103 H 16 134/86 99 Intake and Output 07/13/18 07/13/18 07/13/18 06:59 14:59 22:59 Other: # Voids 1 Weight 117.027 kg HEENT: Within normal limits Heart: Regular rate and rhythm Lungs: Clear to auscultation bilaterally Abdomen: , nontender Cervix exam: Per nursing staff was fingertip heart tones: Reactive Contractions: Irregular Results Result Diagrams: 07/13/18 15:30 Abnormal Lab Results - Last 24 Hours (Table) 07/13/18 Range/Units 15:30 WBC 12.7 H (3.8-10.6) k/uL Neutrophils # 8.7 H (1.3-7.7) k/uL Assessment and Plan (1) 37 weeks gestation of Current Visit: Yes Status: Acute Code(s): Z3A.37 - 37 WEEKS GESTATION OF SNOMED Code(s): 85429139 (2) Gestational hypertension affecting second Current Visit: Yes Status: Acute Code(s): O13.9 - GESTATIONAL HTN W/O SIGNIFICANT PROTEINURIA, UNSP TRIMESTER SNOMED Code(s): 55786698 (3) Previous delivery affecting Current Visit: Yes Status: Acute Code(s): O34.219 - MATERNAL CARE FOR UNSP TYPE SCAR FROM PREVIOUS DEL SNOMED Code(s): 566122125 Plan: Proceed with repeat low transverse section. Will observe blood pressures. Currently no medications are needed. I have discussed the risks, benefits, and alternative therapies for the above- mentioned procedure and for both sedation/anesthesia as well as necessary blood products administration, if indicated, as they pertain to this patient. The patient has indicated her understanding and acceptance of the risks and procedures discussed.
--- NOTE | 2018-07-13 18:08 | P.OP ---
Date of Procedure: 07/13/18 Preoperative Diagnosis: 1. Intrauterine at 37 and one sevenths weeks. 2. Gestational hypertension. 3. History of previous delivery. 4. Unfavorable cervix. Postoperative Diagnosis: Same Procedure(s) Performed: Repeat low transverse section Anesthesia: spinal (Duramorph) Surgeon: Ember Garcia Account Analyst #1: Verna Holliday Estimated Blood Loss (ml): 500 Pathology: other (Placenta) Condition: stable Disposition: floor Indications for Procedure: This is a 33-year-old female 2 para 1 at 37 and one sevenths weeks who presents with a headache that has not gone away despite Tylenol and intermittent elevated blood pressures. She does meet the criteria for gestational hypertension and she is beyond 37 weeks. She does have an unfavorable cervix and therefore the decision is made to proceed with repeat low transverse section. I have discussed the risks, benefits, and alternative therapies for the above- mentioned procedure and for both sedation/anesthesia as well as necessary blood products administration, if indicated, as they pertain to this patient. The patient has indicated her understanding and acceptance of the risks and procedures discussed. Operative Findings: A viable male infant is noted in the vertex presentation with scores of 8 at 1 minute and 9 at 5 minutes and weight of 8 lbs. 0 oz. Normal uterus tubes and ovaries are noted. Description of Procedure: The patient is taken to the operating room where she is placed in the dorsal supine position with leftward tilt after spinal Duramorph anesthesia is given. She is prepped and draped in the normal sterile fashion. Skin was tested and found to be adequately anesthetized. A Pfannenstiel skin incision was made with a scalpel. A second knife was used to carry the incision down to the underlying layer of fascia. The subcutaneous tissue was over 6 cm deep. The fascia was nicked in the midline with a scalpel and then extended laterally bilaterally with Piedra scissors. The anterior lip of the fascia was grasped with 2 Caitlin clamps and then dissected off the underlying rectus muscle in the midline with Piedra scissors. The inferior aspect of the fascial incision was grasped with 2 Caitlin clamps and dissected off the underlying rectus muscle and the midline with Piedra scissors. Next the peritoneum layer was tented up with 2 hemostats and then entered sharply with the scalpel. The incision is extended superiorly and inferiorly with Metzenbaum scissors. Next an Barry wound retractor is placed. Next a DeLee retractor is placed. The vesicouterine peritoneum is entered sharply with Metzenbaum scissors and extended laterally bilaterally with Metzenbaum scissors and then the bladder flap is pushed inferiorly. The lower uterine segment is incised in transverse fashion with the scalpel and then bluntly entered with a hemostat. Clear fluid is noted. The incision was then extended laterally bilaterally with 2 fingers. Next the 's head is delivered through the incision. Nose and mouth are bulb suctioned. The remainder of the infant is easily delivered and placed on mother 's abdomen. Cord is clamped and cut. is taken to warmer by nursing staff. Uterine fundus is gently massaged and placenta is delivered manually. Uterus is exteriorized and cleared of all clots and debris. Uterine incision is closed with 0 Vicryl suture in a running locked fashion. A second layer of 0 Vicryl suture is used in a running fashion for hemostasis. Good hemostasis is noted. Posterior cul-de-sac is suctioned of all clots and debris. Uterus is returned to the abdomen. Incision is noted to be hemostatic after placing a few interrupted stitches. Barry wound retractor is removed. Peritoneal layer is closed with 0 Vicryl suture in a running fashion. Muscle layer is reapproximated with 0 Vicryl suture in interrupted fashion. Fascia layer is then closed with 0 PDS suture with 2 sutures meeting in the midline and the knots buried in either side and in the midline. The subcutaneous tissue was then closed with 2-0 Vicryl suture. Skin layer was then closed with ceferino. All sponge and needle counts are correct. The patient is taken to recovery room in stable condition.
[2018-07-13] MEDS ORDERED: ZOLPIDEM 5 MG TAB PO PRN (18:27)
[2018-07-13] MEDS ORDERED: diphenhydrAMINE 50 MG CAP PO PRN (18:27)
[2018-07-13] MEDS ORDERED: ACETAMINOPHEN TAB 325 MG TAB PO PRN (18:27)
[2018-07-13] MEDS ORDERED: METOCLOPRAMIDE 5 MG/ML 2 ML VIAL IVP PRN (18:27)
[2018-07-13] MEDS ORDERED: diphenhydrAMINE 25 MG CAP PO PRN (18:27)
[2018-07-13] MEDS ORDERED: diphenhydrAMINE 50 MG/ML 1 ML VIAL IVP PRN ×2 (18:27)
[2018-07-13] MEDS ORDERED: ONDANSETRON 4 MG/2 ML VIAL IVP PRN (18:27)
[2018-07-13] MEDS ORDERED: NALOXONE 0.4 MG/ML 1 ML VIAL IV PRN (18:27)
[2018-07-13] MEDS: LABETALOL 100 MG TAB PO SCH (19:48)
[2018-07-13] MEDS: LACTATED RINGERS 1,000 ML IV SCH (21:03)
[2018-07-13] MEDS: SENNOSIDES-DOCUSATE SODIUM 1 EACH TAB PO SCH (23:04)
[2018-07-13] MEDS: KETOROLAC 30 MG/ML 1 ML VIAL IVP SCH (23:58)
[2018-07-14] MEDS: KETOROLAC 30 MG/ML 1 ML VIAL IVP SCH (00:12)
[2018-07-14] MEDS: LACTATED RINGERS 1,000 ML IV SCH (03:14)
[2018-07-14] MEDS ORDERED: KETOROLAC 30 MG/ML 1 ML VIAL IVP PRN (06:00)
--- NOTE | 2018-07-14 06:08 | P.PN ---
Progress Note - Text Progress Note Date: 07/14/18 Patient's postop day 1 from . Patient had of Duramorph spinal with 300 g of morphine. She has done well overnight. She is regained all bowel or bladder function. She is able to walk. She has some minimal pruritus which is controlled with current medication regimen. Patient vitals are stable is doing well overnight. Baby is doing well overnight. We will sign off please contact anesthesia if you have any questions
[2018-07-14 06:15] LABS: Basophils % (A) 0 %; Eosinophils % (A) 0 %; HCT 33.4 % (34.0-46.0); HGB 10.9 gm/dL (11.4-16.0); Lymphocytes # (A) 2.1 k/uL (1.0-4.8); Lymphocytes % (A) 13 %; MCH 27.1 pg (25.0-35.0); MCHC 32.5 g/dL (31.0-37.0); MCV 83.3 fL (80.0-100.0); Mean Platelet Volume 7.9; Monocytes # (A) 0.9 k/uL (0-1.0); Monocytes % (A) 6 %; Neutrophils # (A) 13.2 k/uL (1.3-7.7); Neutrophils % (A) 81 %; Platelet Count 245 k/uL (150-450); RBC 4.01 m/uL (3.80-5.40); RDW 15.3 % (11.5-15.5); WBC 16.4 k/uL (3.8-10.6)
--- NOTE | 2018-07-14 07:43 | P.PNOBGPC ---
Subjective - Subjective Principal diagnosis: Status post repeat section postoperative day #1 Interval history: Patient is doing well. She states her pain is well-controlled. Lochia is decreasing. She is breast-feeding. She denies any headaches or blurry vision. She did have some anxiety last night after her but this has improved today. Her blood pressure this morning is 116/71. She did have some trouble urinating this morning and therefore was just straight cath. She will try again later. Patient reports: Reports appetite normal, Reports pain well controlled, Reports ambulating normally : doing well, nursing well Objective - Vital Signs Latest vital signs: Vital Signs Temp Pulse Resp BP Pulse Ox 07/14/18 03:21 98.1 F 93 16 134/75 99 07/13/18 23:45 97.9 F 81 16 134/92 99 07/13/18 22:02 76 137/76 07/13/18 21:12 94 16 136/84 100 07/13/18 20:13 96.6 F L 84 16 165/84 100 07/13/18 19:52 90 158/82 100 07/13/18 19:43 94 16 164/86 99 07/13/18 19:39 100 16 168/93 99 07/13/18 19:27 100 159/87 99 07/13/18 19:18 123 H 16 173/99 99 07/13/18 19:13 106 H 16 160/95 97 07/13/18 18:58 94 16 148/84 97 07/13/18 18:43 83 16 127/73 98 07/13/18 18:28 87 16 96/45 99 07/13/18 18:13 96.6 F L 75 16 120/67 99 07/13/18 12:50 96.4 F L 103 H 16 134/86 99 Intake and Output 07/13/18 07/14/18 07/14/18 22:59 06:59 14:59 Intake Total 2100 600 Output Total 800 300 Balance 1300 300 Intake: IV 1100 Intake, IV Titration 1000 600 Amount Lactated Ringers 1,000 ml 1000 600 @ 125 mls/hr IV .Q8H [facility] Rx#:[id number] Output: Urine 300 300 Uretheral (Long) 300 Estimated Blood Loss 500 Other: Voiding Method Indwelling Catheter # Voids 0 - Exam Extremities: Present: normal. Absent: tenderness Abdomen: Present: normal appearance, soft (Faint positive bowel sounds 4). Absent: distention, tenderness Incision: Present: normal, dry, intact Uterus: Present: normal, firm. Absent: tenderness - Labs Labs: Abnormal Lab Results - Last 24 Hours (Table) 07/13/18 07/14/18 Range/Units 15:30 05:36 WBC 12.7 H 16.4 H (3.8-10.6) k/uL Hgb 10.9 L (11.4-16.0) gm/dL Hct 33.4 L (34.0-46.0) % Neutrophils # 8.7 H 13.2 H (1.3-7.7) k/uL Assessment and Plan Assessment: Status post repeat section postoperative day #1 Gestational hypertension-fairly well controlled at this time. (1) 37 weeks gestation of Current Visit: Yes Status: Acute Code(s): Z3A.37 - 37 WEEKS GESTATION OF SNOMED Code(s): 76497568 (2) Gestational hypertension affecting second Current Visit: Yes Status: Acute Code(s): O13.9 - GESTATIONAL HTN W/O SIGNIFICANT PROTEINURIA, UNSP TRIMESTER SNOMED Code(s): 91195115 (3) Previous delivery affecting Current Visit: Yes Status: Acute Code(s): O34.219 - MATERNAL CARE FOR UNSP TYPE SCAR FROM PREVIOUS DEL SNOMED Code(s): 721978311 Plan: Adeline was started on labetalol 100 mg twice a day last night. If her blood pressures status low this morning, may hold morning dose of labetalol. Continued to encourage ambulation. May advance diet as tolerated after flatus. Will switch to oral pain medications today.
[2018-07-14] MEDS: SENNOSIDES-DOCUSATE SODIUM 1 EACH TAB PO SCH ×2 (08:00→21:00)
[2018-07-14] MEDS: LABETALOL 100 MG TAB PO SCH ×2 (09:20→20:58)
[2018-07-14] MEDS: IBUPROFEN 600 MG TAB PO PRN ×2 (11:03→18:02)
[2018-07-14] MEDS: HYDROcodone/APAP 5-325MG 1 EACH TAB PO PRN (14:20)
[2018-07-14] MEDS: HYDROcodone/APAP 7.5-325MG 1 EACH TAB PO PRN (21:33)
[2018-07-15] MEDS: IBUPROFEN 600 MG TAB PO PRN ×3 (02:29→22:58)
[2018-07-15] MEDS: LACTATED RINGERS 1,000 ML IV SCH ×2 (02:36→02:37)
--- NOTE | 2018-07-15 07:44 | P.PNOBGPC ---
Subjective - Subjective Patient reports: Reports appetite normal, Reports voiding normally, Reports pain well controlled, Reports ambulating normally : doing well Objective - Vital Signs Latest vital signs: Vital Signs Temp Pulse Resp BP Pulse Ox 07/15/18 00:00 97.6 F 85 18 119/85 99 07/14/18 21:00 133/80 07/14/18 15:24 98.3 F 85 20 114/69 98 07/14/18 12:00 98.2 F 85 20 114/69 07/14/18 09:15 84 20 125/84 07/14/18 07:47 97.7 F 83 20 116/71 Intake and Output 07/14/18 07/15/18 07/15/18 22:59 06:59 14:59 Output Total 200 Balance -200 Output: Urine 200 Other: # Voids 1 1 - Exam Lungs: bilateral: normal Chest: Normal S1, Normal S2 Extremities: Present: normal Abdomen: Present: normal appearance, soft. Absent: distention, tenderness Incision: Present: normal, dry, intact Uterus: Present: normal, firm Assessment and Plan Assessment: This is postoperative day #2. Patient is resting without complaints. Vital signs are stable and blood pressures are excellent at this time. Incision is intact and dry. Patient is tolerating regular diet and ambulating and urinating without difficulty. Plan is to continue routine postoperative care. Most likely will be discharged home tomorrow.
[2018-07-15] MEDS: SENNOSIDES-DOCUSATE SODIUM 1 EACH TAB PO SCH ×2 (09:04→19:37)
[2018-07-15] MEDS: HYDROcodone/APAP 5-325MG 1 EACH TAB PO PRN ×2 (09:04→18:27)
[2018-07-15] MEDS: LABETALOL 100 MG TAB PO SCH (09:06)
[2018-07-16] MEDS: HYDROcodone/APAP 7.5-325MG 1 EACH TAB PO PRN (06:43)
[2018-07-16 07:52] VITALS: BP 142/75; PULSE 82; RESP 14; TEMP 97.8
[2018-07-16] MEDS: SENNOSIDES-DOCUSATE SODIUM 1 EACH TAB PO SCH (08:00)
--- NOTE | 2018-07-16 08:45 | P.DS ---
Providers Date of admission: 07/13/18 12:36 Expected date of discharge: 07/16/18 Attending physician: Jelani Cesar Primary care physician: Stated None - Discharge Diagnosis(es) (1) 37 weeks gestation of Current Visit: Yes Status: Acute (2) Gestational hypertension affecting second Current Visit: Yes Status: Acute (3) Previous delivery affecting Current Visit: Yes Status: Acute Hospital Course: This is a 33-year-old female 2 para 1 at 37 and one sevenths weeks who presented with gestational hypertension. She underwent a repeat low transverse section on 07/13/2018 and delivered a viable male infant with scores of 8 at 1 minute and 9 at 5 minutes and infant weight of 8 lbs. 0 oz. Her post course was essentially uncomplicated. She initially was given labetalol 100 mg twice a day but this was discontinued after the first day and area lower blood pressures. She currently denies any headaches or blurry vision. Her pain is fairly well controlled with ibuprofen and [place]. She is working on breast-feeding. Lochia is decreasing. Vital signs are stable. Abdomen is soft with fundus firm and nontender. Incision is clean dry and intact. Extremities show negative Homans. Impression is status post repeat section postoperative day #3. Plan is to discharge home today. Trudy will be removed and Steri-Strips placed prior to discharge. She will be given a prescription for a breast pump. She also has requested an abdominal support binder. She will be given prescriptions for ibuprofen and [place]. She has signed the start taking opioid form. MAPS was checked. She is advised follow-up Dr. Cesar in 1 week. Routine postoperative and instructions are given. She is advised to call the office if she has any further questions or concerns prior to her appointment time. Procedures: Repeat low transverse section on 07/13/2018 Patient Condition at Discharge: Stable Plan - Discharge Summary New Discharge Prescriptions: New HYDROcodone/APAP 7.5-325MG [[place] 7.5-325] 1 each PO Q6H PRN #28 tab PRN Reason: Severe Pain Ibuprofen [Motrin] 600 mg PO Q6HR PRN #60 tab PRN Reason: Mild Pain Or Fever >= 100.5 Continue Gdr-Ljmg-Zdbci Acid [-U Capsule (formulary)] 1 cap PO HS busPIRone HCl [Buspar] 5 mg PO DAILY Discharge Medication List Tmb-Meeu-Rhnec Acid [-U Capsule (formulary)] 1 cap PO HS [History] busPIRone HCl [Buspar] 5 mg PO DAILY 07/12/18 [History] HYDROcodone/APAP 7.5-325MG [[place] 7.5-325] 1 each PO Q6H PRN #28 tab 07/16/18 [ Rx] Ibuprofen [Motrin] 600 mg PO Q6HR PRN #60 tab 07/16/18 [Rx] Follow up Appointment(s)/Referral(s): Jelani Cesar DO [Doctor of Osteopathic Medicine] - 1 Week Activity/Diet/Wound Care/Special Instructions: Instructions 1. Do not begin any exercise program for 3 weeks. 2. Do not resume sexual relations for 3 weeks or longer if uncomfortable. 3. You may take tub baths or showers at any time. 4. You may use tampons if desired after 3 weeks. 5. Keep the area of episiotomy (stitches) clean and dry. 6. If you are not nursing, wear a good fitting, supportive bra during the day and limit fluid intake for at least 1 week to prevent breast engorgement. 7. Call the office, [phone], within the next week to make appointment for your 6 week checkup if it has not already been made. 8. Report any of the following occurrences to the doctor promptly: a. Heavy, excessive bleeding b. Chills, fever c. Burning or frequency of urination d. Pain or redness and breasts if nursing e. Increasing pain or swelling in episiotomy (stitches). In addition to the above instructions, the following additional should be followed: 1. No heavy lifting or straining (exercising) until after 6 week checkup. 2. Keep abdominal incision clean and dry: You may wear a dressing if more comfortable. 3. Make office appointment for 10 days after going home or as instructed by her doctor. Discharge Disposition: HOME SELF-CARE
== END 2018-07-16 11:55 | disposition home or self-care (01) | DRG 787 ==
LOC: FBPOP 11:39 → 4FBP 12:36
PROVIDERS: ADMIT Obstetrics & Gynecology; ATTEND Obstetrics & Gynecology
PROC: 10D00Z1 Extraction of Products of Conception, Low, Open Approach (ICD-10-PCS; principal; 2018-07-13 17:05)
DX: O13.4 Gestational [pregnancy-induced] hypertension without significant proteinuria, complicating childbirth (principal); O99.354 Diseases of the nervous system complicating childbirth; O34.211 Maternal care for low transverse scar from previous cesarean delivery; O99.52 Diseases of the respiratory system complicating childbirth; J45.909 Unspecified asthma, uncomplicated; O99.344 Other mental disorders complicating childbirth; F41.9 Anxiety disorder, unspecified; F32.9 Major depressive disorder, single episode, unspecified; O99.72 Diseases of the skin and subcutaneous tissue complicating childbirth; R51 Headache; L29.9 Pruritus, unspecified; O99.89 Other specified diseases and conditions complicating pregnancy, childbirth and the puerperium; E28.2 Polycystic ovarian syndrome; Z37.0 Single live birth; Z3A.37 37 weeks gestation of pregnancy; Z87.891 Personal history of nicotine dependence; Z87.440 Personal history of urinary (tract) infections; Z79.899 Other long term (current) drug therapy; Z82.49 Family history of ischemic heart disease and other diseases of the circulatory system; Z83.3 Family history of diabetes mellitus
CPT/HCPCS: 59025; 85025; 85610; 85730; 86850; 86900; 86901; 88307; 99213

== ENCOUNTER 2018-09-29 13:32 | Emergency (ER) | payer OTHER ==
[2018-09-29 13:38] VITALS: BP 158/98; PULSE 83; RESP 18; TEMP 98.5
--- NOTE | 2018-09-29 14:23 | ED ---
Headache HPI - General Chief Complaint: Headache Stated Complaint: headache x4 days Time Seen by Provider: 09/29/18 14:10 Mode of arrival: ambulatory Limitations: no limitations - History of Present Illness Initial Comments: This 33-year-old white female presents with a complaint of a headache. She states that it is directly over her maxillary sinus region. She's had some inc reased nasal congestion recently but denies any rhinorrhea. She denies any fevers or chills. She does have a history of infrequent migraine headaches. She's had some slight photophobia but no phonophobia. She also has had a slight sore throat but denies any fevers. There has been a slight cough as well. She did try Fioricet 2 days ago without any relief. The duration of her symptoms has been 4 days. She thinks that it is related to a sinus infection. No other complaints or modifying factors. - Related Data Home Medications Medication Instructions Recorded Confirmed busPIRone HCl [Buspar] 5 mg PO BID PRN 07/12/18 09/29/18 FLUoxetine HCL [PROzac] 20 mg PO DAILY 09/29/18 09/29/18 Previous Rx's Medication Instructions Recorded Amoxic-Pot Clav 875-125Mg 1 each PO Q12HR #20 tablet 09/29/18 [Augmentin Xr 875-125] Allergies Allergy/AdvReac Type Severity Reaction Status Date / Time cephradine [From Velosef] Allergy Intermediate Rash/Hives Verified 09/29/18 13:46 Review of Systems ROS Statement: Those systems with pertinent positive or pertinent negative responses have been documented in the HPI. ROS Other: All systems not noted in ROS Statement are negative. Past Medical History Past Medical History: Asthma, Hypertension Additional Past Medical History / Comment(s): PCOS History of Any Multi-Drug Resistant Organisms: None Reported Past Surgical History: Adenoidectomy, Section, Cholecystectomy, Tonsillectomy Past Anesthesia/Blood Transfusion Reactions: No Reported Reaction Past Psychological History: Anxiety, Depression Smoking Status: Current some day smoker Past Alcohol Use History: None Reported Past Drug Use History: None Reported - Past Family History Mother Family Medical History: Diabetes Mellitus, Hypertension General Exam - General Exam Comments Initial Comments: GENERAL: The patient is well nourished and well hydrated. VITAL SIGNS: Heart rate, blood pressure, respiratory rate reviewed as recorded in nurse's notes. EYES: Pupils are round and reactive. Extraocular movements are intact. No conjunctival / lid redness or swelling. ENT: No external evidence of injury, swelling, or ecchymosis. Airway is patent. There is minimal posterior oropharyngeal erythema. There is tenderness over the maxillary sinuses. NECK: Nontender. No swelling or evidence of injury. No subcutaneous emphysema. Trachea is midline. No thyroid mass. HEART: Regular rate and rhythm. Good peripheral pulses. LUNGS/CHEST: Breath sounds clear and equal bilaterally. No rales, rhonchi, or wheezes. No ecchymosis, subcutaneous emphysema, or tenderness. ABDOMEN: Abdomen soft without tenderness. No palpable masses or organomegaly. No peritoneal signs. No abdominal wall swelling or ecchymosis. EXTREMITIES: No extremity tenderness. Normal muscle tone and function. No thoracolumbar tenderness. NEUROLOGIC: Sensation is grossly intact. Cranial nerve exam reveals face is symmetrical, tongue is midline, speech is clear. SKIN: No abrasions or ecchymosis is noted. No induration or masses noted. PSYCHIATRIC: Alert and oriented. Appropriate behavior and judgment. Limitations: no limitations Course Vital Signs 09/29/18 13:34 Temperature 98.5 F Pulse Rate 83 Respiratory 18 Rate Blood Pressure 158/98 O2 Sat by Pulse 98 Oximetry Medical Decision Making - Medical Decision Making The patient is seen and examined. It is felt as though she likely does have a sinusitis. The possibility of a slight migraine certainly is possible as well. She does not appear to be significantly ill at this time and it is felt as though she stable for outpatient treatment. Disposition Clinical Impression: Sinusitis, Sinus headache, Hypertension Disposition: HOME SELF-CARE Condition: Good Instructions (If sedation given, give patient instructions): Acute Headache (ED), Sinusitis (ED), Hypertension (ED) Additional Instructions: Please take Tylenol and/or Motrin if needed for any pain. You also may benefit from Mucinex DM or similar medication for cough and congestion. Prescriptions: Amoxic-Pot Clav 875-125Mg [Augmentin Xr 875-125] 1 each PO Q12HR #20 tablet Is patient prescribed a controlled substance at d/c from ED?: No Referrals: Francisco Mendez MD [Primary Care Provider] - 1-2 days Time of Disposition: 14:22
== END 2018-09-29 14:33 | disposition home or self-care (01) ==
LOC: EC 13:32
DX: J32.9 Chronic sinusitis, unspecified (principal); I10 Essential (primary) hypertension; F41.9 Anxiety disorder, unspecified; F32.9 Major depressive disorder, single episode, unspecified; F17.200 Nicotine dependence, unspecified, uncomplicated; Z79.899 Other long term (current) drug therapy; Z88.8 Allergy status to other drugs, medicaments and biological substances
CPT/HCPCS: 99283

== ENCOUNTER 2018-10-02 17:37 | Emergency (ER) | payer OTHER ==
[2018-10-02 17:42] VITALS: BP 172/102; PULSE 76; RESP 16; TEMP 97.7
[2018-10-02] MEDS ORDERED: KETOROLAC 30 MG/ML 1 ML VIAL IM STA (17:53)
--- NOTE | 2018-10-02 17:55 | ED ---
Extremity Problem HPI - General Chief complaint: Extremity Problem,Nontraumatic Stated complaint: left wrist pain Time Seen by Provider: 10/02/18 17:43 Source: patient Mode of arrival: ambulatory Limitations: no limitations - History of Present Illness Initial comments: 33-year-old female who denies past medical history presenting for chief complaint of left wrist pain. Patient denies any injury, she denies any swelling or erythema. Patient states is tender to range of motion. Patient states she woke up with pain 3 days prior. She states pain has persisted and that is why she presented for evaluation. Patient denies any abrasions or laceration. Patient denies any heavy drinking with possible source of unknown injury. Patient states she does have a 2-month-old baby at home where she is often lifting. Remainder review of system negative patient denies any numbness tingling or loss sensation, coolness or pallor of the extremity. Patient denies any recent fever, chills, night sweats, shortness of breath, chest pain, back pain, abdominal pain, nausea or vomiting, numbness or tingling, dysuria or hematuria, constipation or diarrhea, headaches or visual changes, or any other complaints. - Related Data Home Medications Medication Instructions Recorded Confirmed busPIRone HCl [Buspar] 5 mg PO BID PRN 07/12/18 09/29/18 FLUoxetine HCL [PROzac] 20 mg PO DAILY 09/29/18 09/29/18 Previous Rx's Medication Instructions Recorded Amoxic-Pot Clav 875-125Mg 1 each PO Q12HR #20 tablet 09/29/18 [Augmentin Xr 875-125] Ibuprofen 800 mg PO Q8H PRN 7 Days #21 tablet 10/02/18 Allergies Allergy/AdvReac Type Severity Reaction Status Date / Time cephradine [From Velosef] Allergy Intermediate Rash/Hives Verified 10/02/18 17:42 Review of Systems ROS Statement: Those systems with pertinent positive or pertinent negative responses have been documented in the HPI. ROS Other: All systems not noted in ROS Statement are negative. Past Medical History Past Medical History: Asthma, Hypertension Additional Past Medical History / Comment(s): PCOS History of Any Multi-Drug Resistant Organisms: None Reported Past Surgical History: Adenoidectomy, Section, Cholecystectomy, Tonsillectomy Past Anesthesia/Blood Transfusion Reactions: No Reported Reaction Past Psychological History: Anxiety, Depression Smoking Status: Current some day smoker Past Alcohol Use History: None Reported Past Drug Use History: None Reported - Past Family History Mother Family Medical History: Diabetes Mellitus, Hypertension General Exam - General Exam Comments Initial Comments: General: The patient is awake and alert, in no distress, and does not appear acutely ill. Eye: +3 mm pupils are equal, round and reactive to light, extra-ocular movements are intact. No nystagmus. There is normal conjunctiva bilaterally. No signs of icterus. Ears, nose, mouth and throat: There are moist mucous membranes and no oral lesions. Neck: The neck is supple, there is no tenderness or JVD. Cardiovascular: There is a regular rate and rhythm. No murmur, rub or gallop is appreciated. Respiratory: Lungs are clear to auscultation, respirations are non-labored, breath sounds are equal. No wheezes, stridor, rales, or rhonchi. Musculoskeletal: Upon inspection of the wrist bilaterally there identical. No erythema soft tissue swelling. Patient is tender to palpation along the ulnar aspect of left wrist. Positive John. Positive Phalen test. Negative Tinel sign. Normal ROM, no tenderness of the right wrist, patient amidst a tenderness with range of motion of left wrist. Strength 5/5. Sensation intact. Radial pulses equal bilaterally 2+. She is able to make the okay fingers crossed thumbs-up and extend at the wrist bilaterally. Capillary refill less than 2 seconds. Neurological: A&O x 3. CN II-XII intact, There are no obvious motor or sensory deficits. Coordination appears grossly intact. Speech is normal. Skin: Skin is warm and dry and no rashes or lesions are noted. Psychiatric: Cooperative, appropriate mood & affect, normal judgment. Limitations: no limitations Course Vital Signs 10/02/18 17:39 Temperature 97.7 F Pulse Rate 76 Respiratory 16 Rate Blood Pressure 172/102 O2 Sat by Pulse 98 Oximetry Medical Decision Making - Medical Decision Making 33-year-old female presenting for age back left wrist pain his process evident on physical examination or history. Patient denies constitutional symptoms. No erythema or warmth to palpation. Patient does have history of repetitive movement of lifting child. Positive John test and pain to palpation along the ulnar aspect of the left wrist. At this time feel patient has de Quervain's tenosynovitis. Patient be treated symptomatically, placed in splint and given orthopedic surgery referral for possible steroid injection. Patient instructed to take ibuprofen and Tylenol [id number] for pain. An rest wrist. Patient verbalized understanding. I discussed the case attending provider Dr. Ibanez who is agreeable plan as well as discharge of patient. Patient is agreeable plan denies questions at this time. Patient appears well upon discharge Disposition Clinical Impression: Tenosynovitis, de Quervain Disposition: HOME SELF-CARE Condition: Good Instructions (If sedation given, give patient instructions): Tenosynovitis (ED) Additional Instructions: Please use medication as discussed. Please follow-up with orthopedic surgery in the next 1-2 days. Please follow up with primary care for elevated blood pressure reading. Please rest left wrist. Please use ibuprofen as discussed. Please return to emergency room if the symptoms increase or worsen or for any other concerns. Prescriptions: Ibuprofen 800 mg PO Q8H PRN 7 Days #21 tablet PRN Reason: Pain Is patient prescribed a controlled substance at d/c from ED?: No Referrals: Francisco Mendez MD [Primary Care Provider] - 1-2 days Evens Gonzalez DO [Medical Doctor] - 1-2 days Time of Disposition: 17:55
== END 2018-10-02 18:17 | disposition home or self-care (01) ==
LOC: EC 17:37
DX: M65.4 Radial styloid tenosynovitis [de Quervain] (principal); F32.9 Major depressive disorder, single episode, unspecified; F41.9 Anxiety disorder, unspecified; F17.200 Nicotine dependence, unspecified, uncomplicated; Z79.899 Other long term (current) drug therapy; Z88.8 Allergy status to other drugs, medicaments and biological substances
CPT/HCPCS: 99283; 96372; J1885

== ENCOUNTER → 2018-11-21 | Outpatient (CLI) | payer OTHER ==
--- NOTE | 2018-11-23 19:41 | US ---
EXAMINATION TYPE: US pelvis complete transvag DATE OF EXAM: 11/21/2018 COMPARISON: US transvag 09/09/2016 CLINICAL HISTORY: 33-year-old female Z97.5 IUD Placement. TECHNIQUE: Transabdominal sonographic images of the pelvis were acquired. Transvaginal sonographic images were medically necessary to better assess the following anatomy: Uterus Date of LMP: End October 2018 FINDINGS: EXAM MEASUREMENTS: Uterus: 9.9x 5.5 x 5.4 cm Endometrial Stripe: 0.7 cm Right Ovary: 2.7 x 1.6 x 1.7 cm Left Ovary: 5.5 x 3.1 x 3.5 cm 1. Uterus: Anteverted. IUD positioned low, visualized within the cervix 2. Endometrium: wnl 3. Right Ovary: wnl as visualized 4. Left Ovary: Cystic area visualized measuring 2.8 x 2.3 x 2.5 cm 5. Bilateral Adnexa: wnl 6. Posterior cul-de-sac: wnl IMPRESSION: 1. IUD positioned low within the cervix. 2. A 2.8 cm dominant follicle or functional cyst in the left ovary.
== END | disposition home or self-care (01) ==
LOC: RADUSWWP 15:44
PROVIDERS: ATTEND Obstetrics & Gynecology
DX: Z09 Encounter for follow-up examination after completed treatment for conditions other than malignant neoplasm (principal); N83.02 Follicular cyst of left ovary; Z97.5 Presence of (intrauterine) contraceptive device
CPT/HCPCS: 76830; 76856

== ENCOUNTER → 2018-12-03 | Outpatient (CLI) | payer OTHER ==
--- NOTE | 2018-12-03 16:00 | US ---
EXAMINATION TYPE: US pelvis complete transvag DATE OF EXAM: 12/03/2018 COMPARISON: US CLINICAL HISTORY: Z97.[address] IUD placement. Paragard IUD placed 1 week go. Hx PCOS, 2 C-Sections, . TECHNIQUE: Transvaginal (TV) and Transabdominal (TA) . Transabdominal sonographic images of the pel vis were acquired. Transvaginal sonographic images were medically necessary to better assess the fol lowing anatomy: Ovaries Date of LMP: 11/27/2018 EXAM MEASUREMENTS: Uterus: 12.0 x 9.7 x 5.1 cm Endometrial Stripe: 0.63 Right Ovary: 3.3 x 1.7 x 2.3 cm Left Ovary: 3.1 x 2.5 x 2.5 1. Uterus: Anteverted IUD appears to be in the upper endometrium. ?Prominent vessels seen left per ipheral uterus area. 2. Endometrium: appears wnl 3. Right Ovary: multiple anechoic areas seen, largest measurin.0 x 0.7 x 1.0 cm. 4. Left Ovary: Limited in visibility due to position of ovary. 5. Bilateral Adnexa: appears wnl 6. Posterior cul-de-sac: appears wnl IMPRESSION: Intrauterine contraceptive device is present along the endometrium
== END | disposition home or self-care (01) ==
LOC: RADUSWWP 14:42
PROVIDERS: ATTEND Obstetrics & Gynecology
DX: Z30.431 Encounter for routine checking of intrauterine contraceptive device (principal)
CPT/HCPCS: 76830; 76856

== ENCOUNTER → 2019-02-03 | Outpatient (CLI) | payer OTHER ==
--- NOTE | 2019-02-03 12:14 | XR ---
EXAMINATION TYPE: XR thoracic spine 2V DATE OF EXAM: 02/03/2019 CLINICAL HISTORY: No known injury. Back pain for a few weeks. TECHNIQUE: Frontal, lateral, and swimmer's view of thoracic spine are obtained. COMPARISON: None. FINDINGS: Thoracic spine show satisfactory alignment without evidence of acute fracture or dislocatio n. Small anterior osteophytes are seen at multiple levels throughout the thoracic spine with multilev el intervertebral disc space narrowing. Vertebral body heights are preserved. Visualized ribs are unr emarkable. Cholecystectomy clips are noted. There are low lung volumes. IMPRESSION: No acute fracture or malalignment is seen in the thoracic spine. 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
--- NOTE | 2019-02-03 14:50 | XR ---
EXAMINATION TYPE: XR cervical spine limited DATE OF EXAM: 02/03/2019 TECHNIQUE: Frontal, lateral and open mouth view of the cervical spine are obtained. HISTORY: M54.9 back pain COMPARISON: None FINDINGS: The cervical spine is visualized from C1 thru the top of C7 level, it is satisfactory in a lignment without evidence of acute fracture or dislocation. The pre-vertebral soft tissue appears wi thin normal limits. There is straightening and slight reversal of the usual cervical lordosis of the upper and mid cervical spine. Very small anterior osteophytes are seen. The C1-C2 articulation is wit hin normal limits on the open mouth view. IMPRESSION: No acute fracture or malalignment is seen in the cervical spine. Mild multilevel degener ative disc disease and reversal of the usual cervical lordosis that may be on the basis of muscular s prain/spasm or patient positioning.
== END | disposition home or self-care (01) ==
LOC: RADXRMAIN 10:51
PROVIDERS: ATTEND Pediatrics
DX: M50.30 Other cervical disc degeneration, unspecified cervical region (principal); M51.34 Other intervertebral disc degeneration, thoracic region
CPT/HCPCS: 72040; 72070

== ENCOUNTER → 2019-04-21 | Outpatient (CLI) | payer OTHER ==
--- NOTE | 2019-04-21 14:13 | US ---
EXAMINATION TYPE: US transvaginal DATE OF EXAM: 04/21/2019 COMPARISON: NONE CLINICAL HISTORY: R10.2 PELVIC PAIN,Z97.[address] CHECK POSITION. TECHNIQUE: Transvaginal (TV). Patient unable to well fill bladder. Date of LMP: 04/19/19 EXAM MEASUREMENTS: Uterus: 9.7 x 5.3 x 5.8 cm Endometrial Stripe: 0.5 cm Right Ovary: Obscured by overlying bowel gas/obesity Left Ovary: Obscured by overlying bowel gas/obesity Patient of large body habitus, technically difficult. 1. Uterus: Anteverted wnl, IUD in place 2. Endometrium: 0.5cm 3. Right Ovary: Obscured by overlying bowel gas/obesity 4. Left Ovary: Obscured by overlying bowel gas/obesity 5. Bilateral Adnexa: wnl 6. Posterior cul-de-sac: wnl IMPRESSION: 1. Appropriate and centrally placed intrauterine device. No endometrial thickening. 2. Prominent adnexal vasculature is seen bilaterally, which can be seen in the setting of pelvic noel estion syndrome. 3. Nonvisualization of the ovaries.
== END ==
LOC: RADUSWWP 13:29
PROVIDERS: ATTEND Obstetrics & Gynecology
DX: R10.2 Pelvic and perineal pain (principal); Z97.5 Presence of (intrauterine) contraceptive device
CPT/HCPCS: 76830

== ENCOUNTER 2020-04-20 02:46 | Emergency (ER) | payer OTHER ==
[2020-04-20 02:57] VITALS: RESP 18; TEMP 97.6
[2020-04-20] MEDS ORDERED: cloNIDine HCL 0.2 MG TAB PO STA (03:17)
--- NOTE | 2020-04-20 03:19 | ED ---
General Adult HPI - General Chief complaint: Dizziness Stated complaint: High Blood Pressure Time Seen by Provider: 04/20/20 03:09 Source: patient Mode of arrival: ambulatory Limitations: no limitations - History of Present Illness Onset/Timin -: days(s) Location: head Severity scale (1-10): 0 Consistency: constant Improves with: none Worsens with: none Associated Symptoms: denies other symptoms Treatments Prior to Arrival: none - Related Data Home Medications Medication Instructions Recorded Confirmed busPIRone HCl [Buspar] 5 mg PO BID PRN 07/12/18 09/29/18 FLUoxetine HCL [PROzac] 20 mg PO DAILY 09/29/18 09/29/18 Previous Rx's Medication Instructions Recorded Amoxic-Pot Clav 875-125Mg 1 each PO Q12HR #20 tablet 09/29/18 [Augmentin Xr 875-125] Ibuprofen 800 mg PO Q8H PRN 7 Days #21 tablet 10/02/18 hydroCHLOROthiazide [Hydrodiuril] 25 mg PO DAILY #15 tab 04/20/20 Allergies Allergy/AdvReac Type Severity Reaction Status Date / Time cephradine [From Velosef] Allergy Intermediate Rash/Hives Verified 04/20/20 02:58 Review of Systems ROS Statement: Those systems with pertinent positive or pertinent negative responses have been documented in the HPI. ROS Other: All systems not noted in ROS Statement are negative. Constitutional: Denies: fever, chills, weakness Eyes: Denies: eye pain, vision change Respiratory: Denies: cough, dyspnea Cardiovascular: Denies: chest pain, palpitations, edema, syncope Gastrointestinal: Denies: abdominal pain, nausea, vomiting Musculoskeletal: Denies: back pain Skin: Denies: rash Neurological: Reports: as per HPI, headache. Denies: weakness, numbness, paresthesias, confusion, vertigo Past Medical History Past Medical History: Asthma, Hypertension Additional Past Medical History / Comment(s): PCOS History of Any Multi-Drug Resistant Organisms: None Reported Past Surgical History: Adenoidectomy, Section, Cholecystectomy, Tonsillectomy Past Anesthesia/Blood Transfusion Reactions: No Reported Reaction Past Psychological History: Anxiety, Depression, PTSD Smoking Status: Current every day smoker Past Alcohol Use History: None Reported Past Drug Use History: None Reported - Past Family History Mother Family Medical History: Diabetes Mellitus, Hypertension General Exam Limitations: no limitations General appearance: alert, in no apparent distress Head exam: Present: atraumatic, normocephalic Eye exam: Present: normal appearance. Absent: scleral icterus, conjunctival injection ENT exam: Present: normal oropharynx Neck exam: Present: normal inspection Respiratory exam: Present: normal lung sounds bilaterally. Absent: respiratory distress, wheezes, rales, rhonchi, stridor Cardiovascular Exam: Present: regular rate, normal rhythm, normal heart sounds. Absent: systolic murmur, diastolic murmur, rubs, gallop GI/Abdominal exam: Present: soft. Absent: distended, tenderness, guarding Extremities exam: Present: normal inspection. Absent: pedal edema Back exam: Present: normal inspection Neurological exam: Present: alert Skin exam: Present: warm, dry, intact, normal color. Absent: rash Course Vital Signs 04/20/20 02:52 Temperature 97.6 F Pulse Rate 86 Respiratory 18 Rate Blood Pressure 145/96 O2 Sat by Pulse 98 Oximetry Medical Decision Making - Lab Data Result diagrams: 04/20/20 03:21 04/20/20 03:21 Lab Results 04/20/20 04/20/20 Range/Units 03:21 03:21 WBC 12.1 H (3.8-10.6) k/uL RBC 5.30 (3.80-5.40) m/uL Hgb 14.0 (11.4-16.0) gm/dL Hct 42.9 (34.0-46.0) % MCV 81.0 (80.0-100.0) fL MCH 26.4 (25.0-35.0) pg MCHC 32.6 (31.0-37.0) g/dL RDW 14.8 (11.5-15.5) % Plt Count 296 (150-450) k/uL Neutrophils % 66 % Lymphocytes % 23 % Monocytes % 6 % Eosinophils % 4 % Basophils % 0 % Neutrophils # 8.0 H (1.3-7.7) k/uL Lymphocytes # 2.8 (1.0-4.8) k/uL Monocytes # 0.7 (0-1.0) k/uL Eosinophils # 0.5 (0-0.7) k/uL Basophils # 0.1 (0-0.2) k/uL Sodium 137 (137-145) mmol/L Potassium 3.9 (3.5-5.1) mmol/L Chloride 103 (98-107) mmol/L Carbon Dioxide 27 (22-30) mmol/L Anion Gap 7 mmol/L BUN 18 H (7-17) mg/dL Creatinine 0.73 (0.52-1.04) mg/dL Est GFR (CKD-EPI)AfAm >90 (>60 ml/min/1.73 sqM) Est GFR (CKD-EPI)NonAf >90 (>60 ml/min/1.73 sqM) Glucose 110 H (74-99) mg/dL Calcium 9.8 (8.4-10.2) mg/dL - EKG Data -: EKG Interpreted by [facility] EKG shows normal: sinus rhythm, axis (Normal), intervals (Normal), QRS complexes (Normal), ST-T waves (Normal) Rate: normal (Rate 83 PM) Disposition Clinical Impression: Hypertension Disposition: HOME SELF-CARE Condition: Good Instructions (If sedation given, give patient instructions): Hypertension (ED) Prescriptions: hydroCHLOROthiazide [Hydrodiuril] 25 mg PO DAILY #15 tab Is patient prescribed a controlled substance at d/c from ED?: No Referrals: Nonstaff,Physician [Primary Care Provider] - 1-2 days Yamilex Cazares MD [REFERRING] - 1-2 days
[2020-04-20 04:16] LABS: African American GFR (CKD) >90 (>60 ml/min/1.73 sqM); Anion Gap 7 mmol/L; Blood Urea Nitrogen 18 mg/dL (7-17); Calcium 9.8 mg/dL (8.4-10.2); Carbon Dioxide 27 mmol/L (22-30); Chloride 103 mmol/L (98-107); Glucose 110 mg/dL (74-99); Non-African American GFR(CKD) >90 (>60 ml/min/1.73 sqM); Potassium 3.9 mmol/L (3.5-5.1); Sodium 137 mmol/L (137-145)
[2020-04-20 04:20] LABS: Basophils # (A) 0.1 k/uL (0-0.2); Basophils % (A) 0 %; Eosinophils # (A) 0.5 k/uL (0-0.7); Eosinophils % (A) 4 %; HCT 42.9 % (34.0-46.0); Lymphocytes # (A) 2.8 k/uL (1.0-4.8); Lymphocytes % (A) 23 %; MCH 26.4 pg (25.0-35.0); MCHC 32.6 g/dL (31.0-37.0); Mean Platelet Volume 7.4; Monocytes # (A) 0.7 k/uL (0-1.0); Monocytes % (A) 6 %; Neutrophils % (A) 66 %; Platelet Count 296 k/uL (150-450); RDW 14.8 % (11.5-15.5); WBC 12.1 k/uL (3.8-10.6)
[2020-04-20 05:04] VITALS: BP 124/71; PULSE 84
== END 2020-04-20 04:53 | disposition home or self-care (01) ==
LOC: EC 02:46
DX: I10 Essential (primary) hypertension (principal); F41.9 Anxiety disorder, unspecified; F32.9 Major depressive disorder, single episode, unspecified; F17.200 Nicotine dependence, unspecified, uncomplicated; Z79.899 Other long term (current) drug therapy; Z88.1 Allergy status to other antibiotic agents
CPT/HCPCS: 36415; 80048; 85025; 93005; 99284

== ENCOUNTER → 2020-08-25 | Outpatient (CLI) | payer OTHER ==
--- NOTE | 2020-08-25 14:37 | XR ---
EXAMINATION TYPE: XR chest 2V DATE OF EXAM: 08/25/2020 COMPARISON: 10/24/2017 HISTORY: Chest pain TECHNIQUE: Frontal and lateral views of the chest are obtained. FINDINGS: There is no focal air space opacity. No evidence for pneumothorax. No pleural effusion. The cardiac silhouette size is within normal limits. The osseous structures are grossly intact. IMPRESSION: 1. No acute cardiopulmonary process.
[2020-08-25 15:21] LABS: Basophils # (A) 0.1 k/uL (0-0.2); Basophils % (A) 0 %; Eosinophils # (A) 0.1 k/uL (0-0.7); Eosinophils % (A) 1 %; HCT 44.7 % (34.0-46.0); HGB 14.5 gm/dL (11.4-16.0); Lymphocytes # (A) 3.7 k/uL (1.0-4.8); Lymphocytes % (A) 24 %; MCH 27.2 pg (25.0-35.0); MCHC 32.4 g/dL (31.0-37.0); MCV 83.9 fL (80.0-100.0); Mean Platelet Volume 7.2; Monocytes # (A) 1.1 k/uL (0-1.0); Monocytes % (A) 7 %; Neutrophils # (A) 10.3 k/uL (1.3-7.7); Neutrophils % (A) 66 %; Platelet Count 311 k/uL (150-450); RBC 5.33 m/uL (3.80-5.40); RDW 15.1 % (11.5-15.5); WBC 15.5 k/uL (3.8-10.6)
[2020-08-25 15:30] LABS: African American GFR (CKD) >90 (>60 ml/min/1.73 sqM); Anion Gap 8 mmol/L; Blood Urea Nitrogen 22 mg/dL (7-17); Calcium 9.6 mg/dL (8.4-10.2); Carbon Dioxide 29 mmol/L (22-30); Chloride 103 mmol/L (98-107); Glucose 77 mg/dL (74-99); Non-African American GFR(CKD) >90 (>60 ml/min/1.73 sqM); Potassium 3.7 mmol/L (3.5-5.1); Sodium 140 mmol/L (137-145)
== END | disposition home or self-care (01) ==
LOC: RADXRMAIN 14:19
PROVIDERS: ATTEND Nurse Practitioner Family
DX: R05 Cough (principal); R06.2 Wheezing
CPT/HCPCS: 71046; 80048; 85025; 85379

== ENCOUNTER → 2020-09-05 | Outpatient (CLI) | payer OTHER ==
--- NOTE | 2020-09-05 09:19 | US ---
EXAMINATION TYPE: US pelvis complete transvag DATE OF EXAM: 09/05/2020 COMPARISON: us 04/21/2019 CLINICAL HISTORY: N93.8 dysfunctional uterine bleeding. Patient states she has been bleeding for 1 mo nth. History of . Difficult exam due to patient body habitus TECHNIQUE: . Transabdominal sonographic images of the pelvis were acquired. Transvaginal sonographi c images were medically necessary to better assess the following anatomy: Endometrium Date of LMP: 1 month ago EXAM MEASUREMENTS: Uterus: 10 x 5.4 x 5.3 cm Endometrial Stripe: 1.9 cm Right Ovary: 3.0 x 2.2 x 1.9 cm Left Ovary: 4.7 x 3.2 x 3.9 cm 1. Uterus: Anteverted Nabothian cysts visualized 2. Endometrium: Thickened 3. Right Ovary: wnl 4. Left Ovary: cyst visualized measuring 2.6 x 2.4 x 2.5 cm 5. Bilateral Adnexa: wnl 6. Posterior cul-de-sac: wnl IMPRESSION: 1. Left ovarian cyst. Follow-up in 6 weeks is recommended
[2020-09-05 19:13] LABS: Luteinizing Hormone 3.3 mIU/mL; Prolactin 20.8 ng/mL (2.8-29.2)
[2020-09-05 19:14] LABS: Follicle Stimulating Hormone 2.8 mIU/mL
== END | disposition home or self-care (01) ==
LOC: RADUSWWP 08:21
PROVIDERS: ATTEND Obstetrics & Gynecology
DX: N83.202 Unspecified ovarian cyst, left side (principal); N93.8 Other specified abnormal uterine and vaginal bleeding
CPT/HCPCS: 76830; 76856; 82627; 83001; 83002; 84146; 84403; 84443

== ENCOUNTER → 2020-09-07 | Outpatient (CLI) | payer OTHER ==
--- NOTE | 2020-09-07 14:12 | CT ---
EXAMINATION TYPE: CT chest w con DATE OF EXAM: 09/07/2020 COMPARISON: None HISTORY: cough for one month CT DLP: 546.9 mGycm Automated exposure control for dose reduction was used. TECHNIQUE: CT scan of the chest is performed with IV Contrast, patient injected with 80 mL of Isovue 300. MIP I mages are created on CT scanner and reviewed. 3D reconstructed images are created on an independent w orkstation and reviewed. FINDINGS: LUNGS: The lungs are grossly clear, there is no concerning parenchymal mass or nodule identified. T here is no pleural effusion or pneumothorax seen. The tracheobronchial tree is patent. Subsegmental changes are most compatible with atelectasis. MEDIASTINUM: There are no greater than 1 cm hilar or mediastinal lymph nodes. Heart size mildly promi nent. Minimal coronary artery calcification. OTHER: Hypertrophic and degenerative changes of the spine. Postcholecystectomy changes noted. IMPRESSION: 1. No acute process.
== END | disposition home or self-care (01) ==
LOC: RADCTMAIN 12:48
PROVIDERS: ATTEND Nurse Practitioner Family
DX: R05 Cough (principal); R06.02 Shortness of breath
CPT/HCPCS: 71260; Q9967

== ENCOUNTER 2020-09-13 18:03 | Emergency (ER) | payer OTHER ==
[2020-09-13 18:15] VITALS: BP 153/97; PULSE 89; RESP 16; TEMP 98.1
--- NOTE | 2020-09-13 19:01 | ED ---
General Adult HPI - General Chief complaint: Vaginal Bleeding Stated complaint: vaginal bleeding/2 months Time Seen by Provider: 09/13/20 18:19 Source: patient Mode of arrival: ambulatory Limitations: no limitations - History of Present Illness Initial comments: 35-year-old female with a past medical history of PCOS, asthma, hypertension presents to the emergency room for vaginal bleeding. Patient reports she has been having her period for 2 months now. She reports she did follow up with her AIR ANALYSIS ENGINEERING TECHNICIAN and had an ultrasound about 2 weeks ago. This did reveal left ovarian cyst. Endometrium was thickened as well with 1.9 cm thickness. Patient denies abdominal pain. Patient states she has another appointment in 1 month with her AIR ANALYSIS ENGINEERING TECHNICIAN to have ablation performed. Patient reports she came in today because she started to feel lightheaded and thought this could be related to the bleeding. Symptoms have since resolved however AIR ANALYSIS ENGINEERING TECHNICIAN told her to come in to get her hemoglobin checked. Patient has no other complaints at this time including shortness of breath, chest pain, abdominal pain, nausea or vomiting, headache, or visual changes. - Related Data Home Medications Medication Instructions Recorded Confirmed Albuterol Sulfate [Proair Hfa] 1 - 2 puff INHALATION RT-QID PRN 09/13/20 09/13/20 Baclofen [Lioresal] 10 mg PO TID 09/13/20 09/13/20 Butalb/APAP/Caff 50-325-40Mg 1 tab PO TID PRN 09/13/20 09/13/20 [Fioricet 50-325-40] Cyanocobalamin (Vitamin B-12) 1,000 mcg PO DAILY 09/13/20 09/13/20 [Vitamin B-12] DULoxetine HCL [Cymbalta] 60 mg PO DAILY 09/13/20 09/13/20 Fluticasone Propionate [Flovent 2 puff INHALATION RT-BID 09/13/20 09/13/20 Hfa 110 mcg] Gabapentin [Neurontin] 300 mg PO TID 09/13/20 09/13/20 Lacosamide [Vimpat] 50 mg PO BID 09/13/20 09/13/20 Montelukast [Singulair] 10 mg PO DAILY 09/13/20 09/13/20 Naproxen [Naprosyn] 500 mg PO BID PRN 09/13/20 09/13/20 [place]-3 Fatty Acids/Fish Oil [Fish 1 cap PO DAILY 09/13/20 09/13/20 Oil 1,000 mg Softgel] lisinopriL [Zestril] 5 mg PO DAILY 09/13/20 09/13/20 traMADol HCL 50 mg PO TID 09/13/20 09/13/20 Previous Rx's Medication Instructions Recorded hydroCHLOROthiazide [Hydrodiuril] 25 mg PO DAILY #15 tab 04/20/20 Allergies Allergy/AdvReac Type Severity Reaction Status Date / Time cephradine [From Velosef] Allergy Intermediate Rash/Hives Verified 09/13/20 18:55 Review of Systems ROS Statement: Those systems with pertinent positive or pertinent negative responses have been documented in the HPI. ROS Other: All systems not noted in ROS Statement are negative. Past Medical History Past Medical History: Asthma, Hypertension Additional Past Medical History / Comment(s): PCOS History of Any Multi-Drug Resistant Organisms: None Reported Past Surgical History: Adenoidectomy, Section, Cholecystectomy, Tonsillectomy Past Anesthesia/Blood Transfusion Reactions: No Reported Reaction Past Psychological History: Anxiety, Depression, PTSD Smoking Status: Current every day smoker Past Alcohol Use History: None Reported Past Drug Use History: None Reported - Past Family History Mother Family Medical History: Diabetes Mellitus, Hypertension General Exam Limitations: no limitations General appearance: alert, in no apparent distress Head exam: Present: atraumatic, normocephalic, normal inspection Eye exam: Present: normal appearance, PERRL, EOMI. Absent: scleral icterus, conjunctival injection, periorbital swelling ENT exam: Present: normal exam, mucous membranes moist Neck exam: Present: normal inspection, full ROM. Absent: tenderness, meningismus, lymphadenopathy Respiratory exam: Present: normal lung sounds bilaterally. Absent: respiratory distress, wheezes, rales, rhonchi, stridor Cardiovascular Exam: Present: regular rate, normal rhythm, normal heart sounds. Absent: systolic murmur, diastolic murmur, rubs, gallop, clicks GI/Abdominal exam: Present: soft, normal bowel sounds. Absent: distended, tenderness External exam: Present: normal external exam. Absent: erythema, swelling, lesions, lacerations, ecchymosis Speculum exam: Present: normal speculum exam, vaginal bleeding (mild vaginal bleeding from the cervix). Absent: erythema, vaginal discharge, cervical discharge, foreign body, tissue, laceration By manual exam: Present: normal by manual exam. Absent: cervical motion tenderness, adnexal tenderness, adnexal mass, uterine enlargement, uterine tenderness Neurological exam: Present: alert Course Vital Signs 09/13/20 18:11 Temperature 98.1 F Pulse Rate 89 Respiratory 16 Rate Blood Pressure 153/97 O2 Sat by Pulse 99 Oximetry Medical Decision Making - Medical Decision Making Vitals are stable. HPI and physical exam as documented. Mild vaginal bleeding on exam. Hemoglobin 13.8, stable CMP unremarkable. Urinalysis that showed greater than 182 red blood cells. Patient does not have any urinary symptoms, white cells likely reactive to red cells however culture will be ordered. HCG negative. I did review previous ultrasound which did show a thickened endometrium. At this time patient is stable for outpatient follow-up. She is due to have an ablation in 1 month. I did discuss following up with her AIR ANALYSIS ENGINEERING TECHNICIAN tomorrow to discuss whether they can do this earlier as she has already had symptoms for 2 months. She is agreeable to this. If she has worsening symptoms she will return to the emergency room. - Lab Data Result diagrams: 09/13/20 19:09 09/13/20 19:09 Lab Results 09/13/20 09/13/20 09/13/20 Range/Units 19:09 19:09 19:09 WBC 13.5 H (3.8-10.6) k/uL RBC 4.91 (3.80-5.40) m/uL Hgb 13.8 (11.4-16.0) gm/dL Hct 41.2 (34.0-46.0) % MCV 83.8 (80.0-100.0) fL MCH 28.0 (25.0-35.0) pg MCHC 33.4 (31.0-37.0) g/dL RDW 15.2 (11.5-15.5) % Plt Count 286 (150-450) k/uL MPV 7.0 Neutrophils % 66 % Lymphocytes % 26 % Monocytes % 5 % Eosinophils % 2 % Basophils % 0 % Neutrophils # 8.9 H (1.3-7.7) k/uL Lymphocytes # 3.4 (1.0-4.8) k/uL Monocytes # 0.6 (0-1.0) k/uL Eosinophils # 0.3 (0-0.7) k/uL Basophils # 0.1 (0-0.2) k/uL Sodium (137-145) mmol/L Potassium (3.5-5.1) mmol/L Chloride (98-107) mmol/L Carbon Dioxide (22-30) mmol/L Anion Gap mmol/L BUN (7-17) mg/dL Creatinine (0.52-1.04) mg/dL Est GFR (CKD-EPI)AfAm (>60 ml/min/1.73 sqM) Est GFR (CKD-EPI)NonAf (>60 ml/min/1.73 sqM) Glucose (74-99) mg/dL Calcium (8.4-10.2) mg/dL Total Bilirubin (0.2-1.3) mg/dL AST (14-36) U/L ALT (4-34) U/L Alkaline Phosphatase (38-126) U/L Total Protein (6.3-8.2) g/dL Albumin (3.5-5.0) g/dL Urine Color Light Red Urine Appearance Clear (Clear) Urine pH 5.5 (5.0-8.0) Ur Specific [place] 1.015 (1.001-1.035) Urine Protein Trace H (Negative) Urine Glucose (UA) Negative (Negative) Urine Ketones Negative (Negative) Urine Blood Large H (Negative) Urine Nitrite Negative (Negative) Urine Bilirubin Negative (Negative) Urine Urobilinogen <2.0 (<2.0) mg/dL Ur Leukocyte Esterase Small H (Negative) Urine RBC >182 H (0-5) /hpf Urine WBC 38 H (0-5) /hpf Ur Squamous Epith Cells 7 H (0-4) /hpf Urine Mucus Moderate H (None) /hpf Urine HCG, Qual Not Detected (Not Detectd) Blood Type Blood Type Recheck Bld Type Recheck Status Antibody Screen Spec Expiration Date 09/13/20 09/13/20 Range/Units 19:09 19:09 WBC (3.8-10.6) k/uL RBC (3.80-5.40) m/uL Hgb (11.4-16.0) gm/dL Hct (34.0-46.0) % MCV (80.0-100.0) fL MCH (25.0-35.0) pg MCHC (31.0-37.0) g/dL RDW (11.5-15.5) % Plt Count (150-450) k/uL MPV Neutrophils % % Lymphocytes % % Monocytes % % Eosinophils % % Basophils % % Neutrophils # (1.3-7.7) k/uL Lymphocytes # (1.0-4.8) k/uL Monocytes # (0-1.0) k/uL Eosinophils # (0-0.7) k/uL Basophils # (0-0.2) k/uL Sodium 139 (137-145) mmol/L Potassium 4.1 (3.5-5.1) mmol/L Chloride 102 (98-107) mmol/L Carbon Dioxide 30 (22-30) mmol/L Anion Gap 7 mmol/L BUN 16 (7-17) mg/dL Creatinine 0.67 (0.52-1.04) mg/dL Est GFR (CKD-EPI)AfAm >90 (>60 ml/min/1.73 sqM) Est GFR (CKD-EPI)NonAf >90 (>60 ml/min/1.73 sqM) Glucose 88 (74-99) mg/dL Calcium 9.1 (8.4-10.2) mg/dL Total Bilirubin 0.6 (0.2-1.3) mg/dL AST 26 (14-36) U/L ALT 29 (4-34) U/L Alkaline Phosphatase 62 (38-126) U/L Total Protein 6.5 (6.3-8.2) g/dL Albumin 4.0 (3.5-5.0) g/dL Urine Color Urine Appearance (Clear) Urine pH (5.0-8.0) Ur Specific [place] (1.001-1.035) Urine Protein (Negative) Urine Glucose (UA) (Negative) Urine Ketones (Negative) Urine Blood (Negative) Urine Nitrite (Negative) Urine Bilirubin (Negative) Urine Urobilinogen (<2.0) mg/dL Ur Leukocyte Esterase (Negative) Urine RBC (0-5) /hpf Urine WBC (0-5) /hpf Ur Squamous Epith Cells (0-4) /hpf Urine Mucus (None) /hpf Urine HCG, Qual (Not Detectd) Blood Type B Positive Blood Type Recheck B Pos Bld Type Recheck Status No Antibody Screen NEGATIVE Spec Expiration Date 09/16/20202308 Disposition Clinical Impression: Dysfunctional uterine bleeding Disposition: HOME SELF-CARE Condition: Good Instructions (If sedation given, give patient instructions): Dysfunctional Uter ine Bleeding (ED) Additional Instructions: Please follow-up with your AIR ANALYSIS ENGINEERING TECHNICIAN. If you have any worsening symptoms return to the emergency room. Is patient prescribed a controlled substance at d/c from ED?: No Referrals: Magno Hadley MD [Primary Care Provider] - 1-2 days Jelani Cesar DO [Doctor of Osteopathic Medicine] - 1-2 days Time of Disposition: 20:00
[2020-09-13 19:20] LABS: Basophils # (A) 0.1 k/uL (0-0.2); Basophils % (A) 0 %; Eosinophils # (A) 0.3 k/uL (0-0.7); Eosinophils % (A) 2 %; HCT 41.2 % (34.0-46.0); HGB 13.8 gm/dL (11.4-16.0); Lymphocytes # (A) 3.4 k/uL (1.0-4.8); Lymphocytes % (A) 26 %; MCHC 33.4 g/dL (31.0-37.0); MCV 83.8 fL (80.0-100.0); Monocytes # (A) 0.6 k/uL (0-1.0); Monocytes % (A) 5 %; Neutrophils # (A) 8.9 k/uL (1.3-7.7); Neutrophils % (A) 66 %; Platelet Count 286 k/uL (150-450); RBC 4.91 m/uL (3.80-5.40); RDW 15.2 % (11.5-15.5); WBC 13.5 k/uL (3.8-10.6)
[2020-09-13 19:28] LABS: Appearance,Urine Clear (Clear); Bilirubin,Urine Negative (Negative); Blood,Urine Large (Negative); Color,Urine Light Red; Glucose,Urine (UA) Negative (Negative); Ketones,Urine Negative (Negative); Leukocyte Esterase,Urine Small (Negative); Mucus,Urine Moderate /hpf; Nitrite,Urine Negative (Negative); PH, Urine 5.5 (5.0-8.0); Protein,Urine Trace (Negative); RBC,Urine >182 /hpf (0-5); Specific Gravity,Urine 1.015 (1.001-1.035); Squamous Epithelial Cell,Urine 7 /hpf (0-4); Urobilinogen,Urine <2.0 mg/dL (<2.0); WBC,Urine 38 /hpf (0-5)
[2020-09-13 19:29] LABS: ALT 29 U/L (4-34); AST 26 U/L (14-36); African American GFR (CKD) >90 (>60 ml/min/1.73 sqM); Alkaline Phosphatase 62 U/L (38-126); Anion Gap 7 mmol/L; Blood Urea Nitrogen 16 mg/dL (7-17); Calcium 9.1 mg/dL (8.4-10.2); Carbon Dioxide 30 mmol/L (22-30); Chloride 102 mmol/L (98-107); Glucose 88 mg/dL (74-99); Non-African American GFR(CKD) >90 (>60 ml/min/1.73 sqM); Potassium 4.1 mmol/L (3.5-5.1); Sodium 139 mmol/L (137-145); Total Bilirubin 0.6 mg/dL (0.2-1.3); Total Protein 6.5 g/dL (6.3-8.2)
== END 2020-09-13 20:28 | disposition home or self-care (01) ==
LOC: EC 18:03
DX: N93.8 Other specified abnormal uterine and vaginal bleeding (principal); J45.909 Unspecified asthma, uncomplicated; I10 Essential (primary) hypertension; F32.9 Major depressive disorder, single episode, unspecified; F41.9 Anxiety disorder, unspecified; F17.200 Nicotine dependence, unspecified, uncomplicated; Z90.49 Acquired absence of other specified parts of digestive tract; Z90.09 Acquired absence of other part of head and neck
CPT/HCPCS: 36415; 80053; 81001; 81025; 85025; 86850; 86900; 86901; 87086; 99284

== ENCOUNTER 2020-09-23 10:42 | Day surgery (SDC) | payer OTHER ==
[~2020-09-23 10:42] MED LIST: DEXAMETHASONE SOD PHOSPHATE 4 MG/ML 1 ML VIAL IV ONE; HYDROmorphone 0.5 MG/0.5 ML SYRINGE IVP PRN; LACTATED RINGERS 1,000 ML IV SCH; LIDOCAINE 1% (10MG/ML) FOR IV START INTRADERMA PRN; MIDAZOLAM 2 MG/2 ML VIAL IV PRN; ONDANSETRON 4 MG/2 ML VIAL IVP ONE; Pre Op ABX Message 1 EACH MISC MISCELLANE ONE
[2020-09-23] MEDS ORDERED: ALBUTEROL HFA INHALER INHALATION ONE (12:15)
[2020-09-23] MEDS ORDERED: DEXAMETHASONE SOD PHOSPHATE 10 MG/ML 1 ML VIAL ONE (12:15)
[2020-09-23] MEDS ORDERED: KETAMINE 10 MG/ML 20 ML VIAL ONE (12:15)
[2020-09-23] MEDS ORDERED: fentaNYL (PF) 50 MCG/ML 2 ML AMP ONE (12:15)
[2020-09-23] MEDS ORDERED: PROPOFOL 10 MG/ML 20 ML VIAL IV ONE (12:15)
[2020-09-23] MEDS ORDERED: ePHEDrine SULFATE/0.9% NACL/PF 50 MG/5 ML SYRINGE IV ONE (12:15)
[2020-09-23] MEDS ORDERED: MIDAZOLAM 2 MG/2 ML VIAL ONE (12:15)
[2020-09-23] MEDS ORDERED: LIDOCAINE 1% INJ 10MG/ML (20 ML MDV) ONE (12:15)
[2020-09-23] MEDS ORDERED: SUCCINYLCHOLINE CHLORIDE 100 MG/5 ML SYR IV ONE (12:15)
--- NOTE | 2020-09-23 12:46 | P.OP ---
Date of Procedure: 09/23/20 Preoperative Diagnosis: Dysfunctional uterine bleeding with thickened endometrium Postoperative Diagnosis: Same Procedure(s) Performed: D&C with hysteroscopy Anesthesia: CLARISA Surgeon: Jelani Cesar Estimated Blood Loss (ml): 5 IV fluids (ml): 300 Pathology: other (Uterine curettings) Condition: stable Disposition: same day Operative Findings: Tissue pathology pending. Proliferative endometrium to hyperplastic tissue collected Description of Procedure: Patient was taken to the operating suite where general anesthetic was found be adequate. She was prepped and draped in the normal sterile fashion and placed in the dorsal lithotomy position. Initially a weighted speculum was inserted in the vagina and anterior lip of the cervix identified and grasped with single- tooth tenaculum. Uterus was then dilated and sounded to 11 cm. This completed camera was inserted. Minimal visualization due to proliferative endometrium was noted. Camera was then removed and sharp curettings of the endometrium were obtained. Significant quantity of tissue was collected may represent hyperplastic tissue will await tissue pathology. It is noted that the patient did struggle some with the intubation and anesthesia as she is a smoker but overall she tolerated the surgery very well. Sponge, lap, needle counts were all correct 2. Patient was then taken to the recovery room in stable and satisfactory condition. Plan - Discharge Summary Discharge Rx Participant: No New Discharge Prescriptions: New Ibuprofen [Motrin] 600 mg PO Q6HR PRN #30 tab PRN Reason: Pain No Action [place]-3 Fatty Acids/Fish Oil [Fish Oil 1,000 mg Softgel] 1 cap PO DAILY Lacosamide [Vimpat] 50 mg PO BID traMADol HCL 50 mg PO BID Albuterol Sulfate [Proair Hfa] 1 - 2 puff INHALATION RT-QID PRN PRN Reason: Shortness Of Breath lisinopriL [Zestril] 5 mg PO QAM Naproxen [Naprosyn] 500 mg PO BID PRN PRN Reason: Pain Montelukast [Singulair] 10 mg PO DAILY Gabapentin [Neurontin] 300 mg PO TID Fluticasone Propionate [Flovent Hfa 110 mcg] 2 puff INHALATION RT-BID DULoxetine HCL [Cymbalta] 60 mg PO QAM Baclofen [Lioresal] 10 mg PO BID Cyanocobalamin (Vitamin B-12) [Vitamin B-12] 1,000 mcg PO DAILY Butalb/APAP/Caff 50-325-40Mg [Fioricet 50-325-40] 1 tab PO TID PRN PRN Reason: Migraine Headache hydroCHLOROthiazide [Hydrodiuril] 25 mg PO QAM Multivitamins, Thera [Multivitamin (formulary)] 1 tab PO DAILY Chromium Picolinate 1 tab PO DAILY Discharge Medication List Albuterol Sulfate [Proair Hfa] 1 - 2 puff INHALATION RT-QID PRN 09/13/20 [History] Baclofen [Lioresal] 10 mg PO BID 09/13/20 [History] Butalb/APAP/Caff 50-325-40Mg [Fioricet 50-325-40] 1 tab PO TID PRN 09/13/20 [History] Cyanocobalamin (Vitamin B-12) [Vitamin B-12] 1,000 mcg PO DAILY 09/13/20 [History] DULoxetine HCL [Cymbalta] 60 mg PO QAM 09/13/20 [History] Fluticasone Propionate [Flovent Hfa 110 mcg] 2 puff INHALATION RT-BID 09/13/20 [History] Gabapentin [Neurontin] 300 mg PO TID 09/13/20 [History] Lacosamide [Vimpat] 50 mg PO BID 09/13/20 [History] Montelukast [Singulair] 10 mg PO DAILY 09/13/20 [History] Naproxen [Naprosyn] 500 mg PO BID PRN 09/13/20 [History] [place]-3 Fatty Acids/Fish Oil [Fish Oil 1,000 mg Softgel] 1 cap PO DAILY 09/13/20 [History] lisinopriL [Zestril] 5 mg PO QAM 09/13/20 [History] traMADol HCL 50 mg PO BID 09/13/20 [History] Chromium Picolinate 1 tab PO DAILY 09/20/20 [History] Multivitamins, Thera [Multivitamin (formulary)] 1 tab PO DAILY 09/20/20 [History] hydroCHLOROthiazide [Hydrodiuril] 25 mg PO QAM 09/20/20 [History] Ibuprofen [Motrin] 600 mg PO Q6HR PRN #30 tab 09/23/20 [Rx] Follow up Appointment(s)/Referral(s): Jelani Cesar DO [Doctor of Osteopathic Medicine] - 1 Week Activity/Diet/Wound Care/Special Instructions: Lifting, limit stairs and driving, and pelvic rest. If any high temperatures, heavy bleeding, or severe pain call my office Discharge Disposition: HOME SELF-CARE
[2020-09-23] MEDS ORDERED: ALBUTEROL NEBULIZED 2.5 MG/3 ML INHALATION ONE (13:06)
[2020-09-23 13:12] VITALS: TEMP 97.4
[2020-09-23 13:27] VITALS: RESP 16
[2020-09-23] MEDS ORDERED: KETOROLAC 15 MG/ML 1 ML VIAL ONE (14:08)
[2020-09-23] MEDS ORDERED: KETOROLAC 15 MG/ML 1 ML VIAL IVP ONE (14:10)
[2020-09-23 15:06] VITALS: BP 129/78; PULSE 97
--- NOTE | 2020-09-29 17:28 | P.HPOB ---
History of Present Illness H&P Date: 09/29/20 Chief Complaint: Dysfunctional uterine bleeding Juliet is a 35-year-old female with dysfunctional uterine bleeding. She is scheduled for D&C with hysteroscopy. Risks/benefits/alternatives were reviewed with the patient in detail and all questions were answered for her prior to proceeding to the operating room. Past Medical History Past Medical History: Asthma, Hypertension, Seizure Disorder Additional Past Medical History / Comment(s): CURRENT: UTERNINE BLEEDING. CHRONIC LOW BACK PAIN. PCOS History of Any Multi-Drug Resistant Organisms: None Reported Past Surgical History: Adenoidectomy, Section, Cholecystectomy, Tonsillectomy Past Anesthesia/Blood Transfusion Reactions: No Reported Reaction Past Psychological History: Anxiety, Depression, PTSD Smoking Status: Current every day smoker Past Alcohol Use History: None Reported Additional Past Alcohol Use History / Comment(s): .5 PPD STARTED 2016. Past Drug Use History: None Reported - Past Family History Mother Family Medical History: Diabetes Mellitus, Hypertension Medications and Allergies Home Medications Medication Instructions Recorded Confirmed Type Albuterol Sulfate [Proair Hfa] 1 - 2 puff INHALATION RT-QID PRN 09/13/20 09/23/20 History Baclofen [Lioresal] 10 mg PO BID 09/13/20 09/23/20 History Butalb/APAP/Caff 50-325-40Mg 1 tab PO TID PRN 09/13/20 09/23/20 History [Fioricet 50-325-40] Cyanocobalamin (Vitamin B-12) 1,000 mcg PO DAILY 09/13/20 09/20/20 History [Vitamin B-12] DULoxetine HCL [Cymbalta] 60 mg PO QAM 09/13/20 09/23/20 History Fluticasone Propionate [Flovent 2 puff INHALATION RT-BID 09/13/20 09/23/20 History Hfa 110 mcg] Gabapentin [Neurontin] 300 mg PO TID 09/13/20 09/23/20 History Lacosamide [Vimpat] 50 mg PO BID 09/13/20 09/23/20 History Montelukast [Singulair] 10 mg PO DAILY 09/13/20 09/20/20 History Naproxen [Naprosyn] 500 mg PO BID PRN 09/13/20 09/20/20 History [place]-3 Fatty Acids/Fish Oil [Fish 1 cap PO DAILY 09/13/20 09/20/20 History Oil 1,000 mg Softgel] lisinopriL [Zestril] 5 mg PO QAM 09/13/20 09/23/20 History traMADol HCL 50 mg PO BID 09/13/20 09/23/20 History Chromium Picolinate 1 tab PO DAILY 09/20/20 09/20/20 History Multivitamins, Thera [Multivitamin 1 tab PO DAILY 09/20/20 09/20/20 History (formulary)] hydroCHLOROthiazide [Hydrodiuril] 25 mg PO QAM 09/20/20 09/23/20 History Ibuprofen [Motrin] 600 mg PO Q6HR PRN #30 tab 09/23/20 Rx Allergies Allergy/AdvReac Type Severity Reaction Status Date / Time cephradine [From Velosef] Allergy Intermediate Rash/Hives Verified 09/23/20 11:19 Exam Osteopathic Statement: *. No significant issues noted on an osteopathic structural exam other than those noted in the History and Physical/Consult. - OBG Physical Exam Breast: both: normal (no masses) Abdomen: bowel sounds normal, no diffuse tenderness, no bruit present, no guarding noted, no hepatomegaly, no splenomegaly, no mass Vulva: both: normal Vagina: normal moisture, no discharge Cervix: no lesion, no discharge Uterus: normal size, normal contour Adnexa: both: normal Anus/Rectum: normal perianal skin, no rectal mass, no hemorrhoids, heme negative
== END 2020-09-23 15:15 | disposition home or self-care (01) ==
LOC: OR 10:42
PROVIDERS: ATTEND Obstetrics & Gynecology
DX: N93.8 Other specified abnormal uterine and vaginal bleeding (principal); R93.89 Abnormal findings on diagnostic imaging of other specified body structures; K08.89 Other specified disorders of teeth and supporting structures; I10 Essential (primary) hypertension; J45.909 Unspecified asthma, uncomplicated; E28.2 Polycystic ovarian syndrome; G89.29 Other chronic pain; M54.5 Low back pain; F17.200 Nicotine dependence, unspecified, uncomplicated; F41.9 Anxiety disorder, unspecified; F32.9 Major depressive disorder, single episode, unspecified; Z88.1 Allergy status to other antibiotic agents; Z79.1 Long term (current) use of non-steroidal anti-inflammatories (NSAID); Z79.891 Long term (current) use of opiate analgesic; Z79.899 Other long term (current) drug therapy; Z90.49 Acquired absence of other specified parts of digestive tract; Z90.89 Acquired absence of other organs; Z86.69 Personal history of other diseases of the nervous system and sense organs; Z98.890 Other specified postprocedural states; Z82.49 Family history of ischemic heart disease and other diseases of the circulatory system; Z83.3 Family history of diabetes mellitus
CPT/HCPCS: 81025; 88305; 58558; J2250; J1100; J2405; J2001; J3010; J1885; J0330; J2704; J1790

== ENCOUNTER 2021-01-30 17:05 | Emergency (ER) | payer OTHER ==
[2021-01-30 17:19] VITALS: BP 161/114; PULSE 94; RESP 17; TEMP 98.5
--- NOTE | 2021-01-30 18:05 | ED ---
Upper Extremity HPI - General Chief Complaint: Extremity Injury, Upper Stated Complaint: Finger injury Time Seen by Provider: 01/30/21 17:46 Source: patient Mode of arrival: ambulatory Limitations: no limitations - History of Present Illness Initial Comments: 35-year-old female presents to emergency Department with a chief complaint of a finger injury. Patient reports this occurred about 2 days ago to the right third digit. Patient reports she caught her right third digit in a folding chair. States the acrylic nail was pulled off the nail bed. Stated it is painful to the touch but denies any discharge from region. Does report mild swelling and erythema but denies any ecchymosis. Reports taking Tylenol or Motrin for symptomatically. Pain alleviated at rest. Exacerbated with palpation to the region. - Related Data Home Medications Medication Instructions Recorded Confirmed Albuterol Sulfate [Proair Hfa] 1 - 2 puff INHALATION RT-QID PRN 09/13/20 01/18/21 Baclofen [Lioresal] 10 mg PO BID 09/13/20 01/18/21 Butalb/APAP/Caff 50-325-40Mg 1 tab PO TID PRN 09/13/20 01/18/21 [Fioricet 50-325-40] Cyanocobalamin (Vitamin B-12) 1,000 mcg PO DAILY 09/13/20 01/18/21 [Vitamin B-12] DULoxetine HCL [Cymbalta] 60 mg PO QAM 09/13/20 01/18/21 Fluticasone Propionate [Flovent 2 puff INHALATION RT-BID 09/13/20 01/18/21 Hfa 110 mcg] Gabapentin [Neurontin] 300 mg PO TID 09/13/20 01/18/21 Lacosamide [Vimpat] 50 mg PO BID 09/13/20 01/18/21 Montelukast [Singulair] 10 mg PO DAILY 09/13/20 01/18/21 Naproxen [Naprosyn] 500 mg PO BID PRN 09/13/20 01/18/21 [place]-3 Fatty Acids/Fish Oil [Fish 1 cap PO DAILY 09/13/20 01/18/21 Oil 1,000 mg Softgel] lisinopriL [Zestril] 5 mg PO QAM 09/13/20 01/18/21 traMADol HCL 50 mg PO BID 09/13/20 01/18/21 Chromium Picolinate 1 tab PO DAILY 09/20/20 01/18/21 Multivitamins, Thera [Multivitamin 1 tab PO DAILY 09/20/20 01/18/21 (formulary)] hydroCHLOROthiazide [Hydrodiuril] 25 mg PO QAM 09/20/20 01/18/21 Previous Rx's Medication Instructions Recorded Ibuprofen [Motrin] 600 mg PO Q6HR PRN #30 tab 09/23/20 Allergies Allergy/AdvReac Type Severity Reaction Status Date / Time cephradine [From Velosef] Allergy Intermediate Rash/Hives Verified 01/30/21 17:19 Review of Systems ROS Statement: Those systems with pertinent positive or pertinent negative responses have been documented in the HPI. ROS Other: All systems not noted in ROS Statement are negative. Past Medical History Past Medical History: Asthma, Hypertension, Seizure Disorder Additional Past Medical History / Comment(s): CURRENT: UTERNINE BLEEDING. CHRONIC LOW BACK PAIN. PCOS History of Any Multi-Drug Resistant Organisms: None Reported Past Surgical History: Adenoidectomy, Section, Cholecystectomy, Tonsillectomy Past Anesthesia/Blood Transfusion Reactions: No Reported Reaction Past Psychological History: Anxiety, Depression, PTSD Smoking Status: Current every day smoker Past Alcohol Use History: None Reported Past Drug Use History: Marijuana - Past Family History Mother Family Medical History: Diabetes Mellitus, Hypertension General Exam Limitations: no limitations General appearance: alert, in no apparent distress Head exam: Present: atraumatic, normocephalic, normal inspection Eye exam: Present: normal appearance, PERRL, EOMI Pupils: Present: normal accommodation ENT exam: Present: normal exam, normal oropharynx, mucous membranes moist Neck exam: Present: normal inspection, full ROM. Absent: tenderness, lymph adenopathy Respiratory exam: Present: normal lung sounds bilaterally. Absent: respiratory distress Cardiovascular Exam: Present: regular rate, normal rhythm, normal heart sounds. Absent: systolic murmur Extremities exam: Present: full ROM, tenderness (Tenderness at the right third digit. Mild swelling with erythema but no ecchymosis.), normal capillary refill. Absent: normal inspection, pedal edema, joint swelling Back exam: Present: normal inspection, full ROM. Absent: tenderness Neurological exam: Present: alert, oriented X3 Psychiatric exam: Present: normal affect, normal mood Skin exam: Present: warm, dry, intact, normal color Course Vital Signs 01/30/21 17:15 Temperature 98.5 F Pulse Rate 94 Respiratory 17 Rate Blood Pressure 161/114 O2 Sat by Pulse 100 Oximetry Medical Decision Making - Medical Decision Making 35-year-old female presents to emergency Department with a chief complaint of a finger injury. On physical examination, patient has a nail avulsion but no injuries to the nailbed. X-rays of the finger unremarkable. I placed a Band- Aid to keep the finger nail attached to the bed. Advised the patient to follow with her PCP. Return parameters were discussed with patient is an attending agreeable. Case discussed with physician. Disposition Clinical Impression: Nail avulsion, finger Disposition: HOME SELF-CARE Condition: Stable Instructions (If sedation given, give patient instructions): Nail Avulsion (ED) Additional Instructions: Please return to the Emergency Department if symptoms worsen or any other concerns. Is patient prescribed a controlled substance at d/c from ED?: No Referrals: Magno Hadley MD [Primary Care Provider] - 1-2 days Time of Disposition: 18:54
--- NOTE | 2021-01-30 18:27 | XR ---
EXAMINATION TYPE: XR finger RT DATE OF EXAM: 01/30/2021 COMPARISON: NONE HISTORY: Pain TECHNIQUE: 3 views FINDINGS: I see no fracture nor dislocation. Joint spaces are fairly normal. There is no sign of a fo reign body. IMPRESSION: Negative right middle finger exam.
== END 2021-01-30 19:06 | disposition home or self-care (01) ==
LOC: EC 17:05
DX: S61.302A Unspecified open wound of right middle finger with damage to nail, initial encounter (principal); I10 Essential (primary) hypertension; J45.909 Unspecified asthma, uncomplicated; G40.909 Epilepsy, unspecified, not intractable, without status epilepticus; F32.9 Major depressive disorder, single episode, unspecified; F41.9 Anxiety disorder, unspecified; F17.200 Nicotine dependence, unspecified, uncomplicated; F12.90 Cannabis use, unspecified, uncomplicated; Z79.1 Long term (current) use of non-steroidal anti-inflammatories (NSAID); Z79.51 Long term (current) use of inhaled steroids; Z83.3 Family history of diabetes mellitus; Z82.49 Family history of ischemic heart disease and other diseases of the circulatory system; W23.0XXA Caught, crushed, jammed, or pinched between moving objects, initial encounter
CPT/HCPCS: 99283

== ENCOUNTER → 2021-04-05 | Outpatient (CLI) | payer OTHER ==
--- NOTE | 2021-04-05 17:51 | CONS ---
CONSULTATION DATE OF SERVICE: 04/05/2021 This 35-year-old lady has been evaluated in [facility] Center for snoring, witnessed episodes of stopped breathing during sleep, and excessive daytime sleepiness. HISTORY OF PRESENT ILLNESS/SLEEP-WAKE EVALUATION: Patient's usual sleep schedule is from 9 p.m. to 6:30 a.m. She does have problems with falling asleep, although no TV in bedroom. She sleeps on the side position. According to her , she has very loud snoring and she has been told about episodes of stopped breathing during sleep. In the morning the patient wakes up tired, falling asleep during the day, has episodes of irritability, depression and anxiety. [place] Sleepiness Scale is significantly increased at 14. The patient usually does not take any naps. Sometimes the patient may see dreams right after falling asleep. No history of sleep paralysis. Questionable episodes of weakness during excitement; possible cataplexy. PAST MEDICAL HISTORY: Positive for hypertension, asthma, headaches, depression and anxiety. PAST SURGICAL HISTORY: Tonsillectomy and adenoidectomy, cholecystectomy, , D and C. MEDICATIONS: The patient does not remember the dosage of medications. Cymbalta once a day, metformin once a day, hydrochlorothiazide twice a day, lisinopril once a day, gabapentin 3 times a day, Adipex once a day, Remeron once a day at bedtime, Singulair, tramadol. SOCIAL HISTORY: Positive for smoking on and off for about 10 years, about half pack a day. Alcohol consumption: None. FAMILY HISTORY: Hypertension. REVIEW OF SYSTEMS: No fevers. No double vision. No recent chest pain. No shortness of breath. No abdominal pain. No bleeding episodes. No blood in the urine. No seizure episodes. Loud snoring and significant excessive daytime sleepiness. PHYSICAL EXAMINATION: GENERAL: Pleasant lady without distress. VITAL SIGNS: BP 147/88, HR 91, RR 14, height 5 feet 2-1/2 inches, weight 262.4 pounds, body mass index 47.1, temperature 97.4, oxygen saturation at room air 99%. HEENT: PERRLA, EOMI, evaluation of oropharynx showed tongue protrudes midline. Low position of soft palate; Mallampati III to IV. NECK: Supple, no JVD. Thyroid is not palpable. Neck is wide; 17-1/2 inches in circumference. LUNGS: Clear to percussion and to auscultation. Good air exchange. No wheezing or rhonchi. HEART: S1, S2 regular. No murmurs, gallops, or rubs. ABDOMEN: Obese. EXTREMITIES: No clubbing or cyanosis. ENVIRONMENTAL TECH: Awake, alert, and oriented X3. Cranial nerves 2 to 7 intact. There is no fasciculation or atrophy. noted. No focal deficits observed. IMPRESSION: 1. Loud snoring, witnessed episodes of stopped breathing during sleep, low position of soft palate, Mallampati III to IV, wide neck, 17-1/2 inches in circumference; obstructive sleep apnea-hypopnea syndrome. 2. Morbid obesity; body mass index 47.1. 3. Sleepiness; [place] Sleepiness Scale is 14. Questionable history of hypnagogic hallucinations and cataplexy, dictating the necessity to include narcolepsy in differential diagnosis. 4. Hypertension. 5. History of asthma. 6. Headaches. 7. Depression. 8. Anxiety. PLAN: 1. Polysomnography for evaluation of patient's breathing during sleep. 2. CPAP/BiPAP titration if sleep study confirms obstructive sleep apnea-hypopnea syndrome. 3. Preferable position during sleep on the side. 4. No driving if patient feels any sleepiness. 5. I will see patient for follow up visit to explain results of testing and following plan. 6. The patient will need a multiple sleep latency test if sleep study is negative for obstructive sleep apnea/hypopnea syndrome. Thank you very much for referring this patient for consultation. Sincerely, Juan José Marmolejo MD, PhD, FAASM Diplomat of [place] [employer] Sleep Medicine Board of [place] [employer] Seismic Observer of [facility] [place] MMODL / IJN: [id number] /
== END ==
LOC: SLEEP 14:58
PROVIDERS: ATTEND Internal Medicine
DX: G47.33 Obstructive sleep apnea (adult) (pediatric) (principal); E66.01 Morbid (severe) obesity due to excess calories; Z68.42 Body mass index [BMI] 45.0-49.9, adult; I10 Essential (primary) hypertension; J45.909 Unspecified asthma, uncomplicated; F32.9 Major depressive disorder, single episode, unspecified; F41.9 Anxiety disorder, unspecified; F17.210 Nicotine dependence, cigarettes, uncomplicated; Z88.1 Allergy status to other antibiotic agents
CPT/HCPCS: 99211

== ENCOUNTER → 2022-05-10 | Outpatient (CLI) | payer OTHER ==
--- NOTE | 2022-05-10 10:47 | P.PN ---
Subjective DATE: 05/10/2022 FOLLOW UP VISIT. Patient with obstructive sleep apnea hypopnea syndrome return to sleep center for follow-up visit. Information from previous visit have been reviewed. The patient does not have significant problems with the mask, PAP unit and humidification. [place] sleepiness scale is 8. I checked information from PAP unit. PAP unit pressure 5-16, average 11.7 cm H2O. Usage is about 25% % of the nights, average 3 hours 16 minutes per night. Leak is 12.2 l/m, which is in acceptable range. Apnea Hypopnea Index is 0.2, which is perfect. MEDICATIONS:1. Lisinopril 40 mg once a day 2. Sumatriptan 50 mg as needed 3. Prazosin 2 mg once a day 4. Hydrochlorothiazide 25 mg twice a day 5. Escitalopram 20 mg once a day 6. Montelukast 10 mg once a day During physical exam: GENERAL: A pleasant patient without any distress. VITAL SIGNS: BP 144/80, HR 72, RR 16 , weight 255, temperature 98.4, oxygen saturation at room air 98 % . HEENT: PERRLA, EOMI. NECK: Supple. No JVD. LUNGS: Clear to percussion and to auscultation. Good air exchange. No wheezing or rhonchi. HEART: S1, S2 regular. ABDOMEN: Soft and nontender. Slightly obese EXTREMITIES: No clubbing or cyanosis. MAIL CARRIER AND CLERK: Awake, alert, and oriented x3. No focal deficit. Impressions: 1. Obstructive sleep apnea-hypopnea syndrome. Patient demonstrated low compliance with treatment, benefiting from treatment. Normal respiration on CPAP. Alertness improved comparing with previous visit. 2. Hypertension. 3. Obesity. 4. Headaches. 5. Depression. 6. History of anxiety. 7. History of asthma. Plan: 1. Continue using PAP equipment every night for the whole night. Patient promised to follow recommendations. 2. To change air filter at least 1-2 times per month. 3. PAP unit should stay lower then position of the head. 4. Advised patient to remove all remaining water from humidifier canister daily and make it dry after each usage. Refill canister with fresh distilled water before each usage. 5. Sleep hygiene with regular time in bed for at least 8 hours. 6. Precautions related to driving. No driving if feel any sleepiness. 7. I will maintain prescription for PAP supplies including mask, tube, filters. 8. Follow up visit in 6 months or earlier if patient has any problems. 9. Watching and losing weight. Thank you very much for allowing me to participate in the management of your patient. Juan José Marmolejo MD, PhD, FAASM. Diplomat of [place] [employer], Sleep Medicine Board by [place] [employer] Fire Crew Specialist of [facility] [place]
== END ==
LOC: SLEEP 10:04
PROVIDERS: ATTEND Internal Medicine
DX: G47.33 Obstructive sleep apnea (adult) (pediatric) (principal); I10 Essential (primary) hypertension; E66.9 Obesity, unspecified; F32.A Depression, unspecified; F41.9 Anxiety disorder, unspecified; J45.909 Unspecified asthma, uncomplicated; R51.9 Headache, unspecified; F17.200 Nicotine dependence, unspecified, uncomplicated; Z88.1 Allergy status to other antibiotic agents; Z99.89 Dependence on other enabling machines and devices
CPT/HCPCS: 99212

== ENCOUNTER 2023-02-14 08:08 | Emergency (ER) | payer OTHER ==
[2023-02-14 08:26] VITALS: RESP 18
[2023-02-14] MEDS ORDERED: ONDANSETRON 4 MG/2 ML VIAL IVP STA (08:46)
[2023-02-14] MEDS ORDERED: SODIUM CHLORIDE 0.9% 500 ML 500 ML IV STA (08:46)
[2023-02-14] MEDS ORDERED: KETOROLAC 15 MG/ML 1 ML VIAL IVP STA (08:46)
--- NOTE | 2023-02-14 08:52 | ED ---
Abdominal Pain HPI - General Chief Complaint: Abdominal Pain Stated Complaint: abd pain Time Seen by Provider: 02/14/23 08:32 Source: patient, RN notes reviewed, old records reviewed Mode of arrival: ambulatory - History of Present Illness Initial Comments: 37-year-old female presents to the emergency room with complaints of right lower quadrant abdominal pain since 3:00 this morning. Describes it as a dull aching and constant. Denies any fevers. Does have nausea vomiting states look like bile. History of asthma, hypertension, PCOS, chronic back pain and surgical history of cholecystectomy. MD Complaint: abdominal pain -: hour(s) (6) Location: RLQ Radiation: none Severity scale (1-10): 10 Quality: cramping Consistency: constant Associated Symptoms: nausea, vomiting - Related Data Patient : No Home Medications Medication Instructions Recorded Confirmed traMADol HCL 50 - 100 mg PO BID PRN 09/13/20 02/14/23 hydroCHLOROthiazide [Hydrodiuril] 25 mg PO BID 09/20/20 02/14/23 Cholecalciferol [Vitamin D3 (25 50 mcg PO DAILY 02/14/23 02/14/23 Mcg = 1000 Iu)] Escitalopram [Lexapro] 20 mg PO DAILY 02/14/23 02/14/23 Ferrous Sulfate [Feosol] 325 mg PO DAILY 02/14/23 02/14/23 Prazosin HCl 2 mg PO HS 02/14/23 02/14/23 amLODIPine [Norvasc] 2.5 mg PO DAILY 02/14/23 02/14/23 buPROPion XL [Wellbutrin XL] 300 mg PO DAILY 02/14/23 02/14/23 lisinopriL 40 mg PO DAILY 02/14/23 02/14/23 Previous Rx's Medication Instructions Recorded Ibuprofen [Motrin] 600 mg PO Q8HR PRN #30 tab 02/14/23 Allergies Allergy/AdvReac Type Severity Reaction Status Date / Time cephradine [From Velosef] Allergy Intermediate Rash/Hives Verified 02/14/23 09:31 Review of Systems ROS Statement: Those systems with pertinent positive or pertinent negative responses have been documented in the HPI. ROS Other: All systems not noted in ROS Statement are negative. Past Medical History Past Medical History: Asthma, Hypertension Additional Past Medical History / Comment(s): CHRONIC LOW BACK PAIN. PCOS History of Any Multi-Drug Resistant Organisms: None Reported Past Surgical History: Adenoidectomy, Section, Cholecystectomy, Tonsillectomy Past Anesthesia/Blood Transfusion Reactions: No Reported Reaction Past Psychological History: Anxiety, Depression, PTSD Smoking Status: Current every day smoker Past Alcohol Use History: None Reported Past Drug Use History: Marijuana - Past Family History Mother Family Medical History: Diabetes Mellitus, Hypertension General Exam General appearance: alert, in no apparent distress Head exam: Present: atraumatic Eye exam: Present: normal appearance. Absent: scleral icterus, conjunctival injection, periorbital swelling ENT exam: Present: mucous membranes moist Neck exam: Present: full ROM. Absent: tenderness, meningismus, lymphadenopathy Respiratory exam: Present: normal lung sounds bilaterally. Absent: respiratory distress, accessory muscle use Cardiovascular Exam: Present: regular rate GI/Abdominal exam: Present: soft, tenderness (RLQ), normal bowel sounds, other (obese). Absent: distended, guarding, rebound, rigid, mass Extremities exam: Present: normal capillary refill. Absent: tenderness, pedal edema Back exam: Absent: tenderness, CVA tenderness (R), CVA tenderness (L), rash noted Neurological exam: Present: alert, oriented X3 Psychiatric exam: Present: normal affect, normal mood Skin exam: Present: warm, dry, normal color. Absent: cyanosis, diaphoretic, petechiae, pallor Course Vital Signs 02/14/23 02/14/23 02/14/23 08:23 08:34 10:22 Temperature 98.1 F 98.3 F Pulse Rate 66 63 73 Respiratory 18 18 18 Rate Blood Pressure 161/102 164/93 112/62 O2 Sat by Pulse 98 96 97 Oximetry Medical Decision Making - Medical Decision Making Was pt. sent in by a medical professional or institution (, PA, TRIMMING OPERATOR, urgent care, hospital, or senior care...) When possible be specific @ -No Did you speak to anyone other than the patient for history (EMS, parent, family, police, friend...)? What history was obtained from this source @ -No Did you review nursing and triage notes (agree or disagree)? Why? @ -I reviewed and agree with nursing and triage notes Were old charts reviewed (outside hosp., previous admission, EMS record, old EKG, old radiological studies, urgent care reports/EKG's, senior care records)? Report findings @ -Previous ultrasound August 2020 Differential Diagnosis (chest pain, altered mental status, abdominal pain women, abdominal pain men, vaginal bleeding, weakness, fever, dyspnea, syncope, headache, dizziness, GI bleed, back pain, seizure, CVA, palpatations, mental health, musculoskeletal)? @ -Differential Abdominal Pain Women: Appendicitis, Cholecystitis, diverticulosis, ischemic bowel, pancreatitis, hepatitis, UTI, gastroenteritis, AAA, incarcerated hernia, bowel obstruction, constipation, inflammatory bowel, hepatitis, peptic ulcer disease, splenic infarction, perforated viscus, vulvitis, ovarian torsion, PID, kidney stone, placenta abruption, this is not meant to be an all-inclusive list EKG interpreted by me (3pts min.). @ -n/a X-rays interpreted by me (1pt min.). @ -None done CT interpreted by me (1pt min.). @ -no U/S interpreted by me (1pt. min.). @ -None done What testing was considered but not performed or refused? (CT, X-rays, U/S, lab s)? Why? @ -None What meds were considered but not given or refused? Why? @ -None Did you discuss the management of the patient with other professionals (professionals i.e. , PA, TRIMMING OPERATOR, lab, RT, psych nurse, social service liaison, development and housing director, teacher, toxics program officer, family caseworker)? Give summary @ -No Was smoking cessation discussed for >3mins.? @ -No Was critical care preformed (if so, how long)? @ -No Were there social determinants of health that impacted care today? How? (Homelessness, low income, unemployed, alcoholism, drug addiction, transportation, low edu. Level, literacy, decrease access to med. care, skilled nursing, rehab)? @ -No Was there de-escalation of care discussed even if they declined (Discuss DNR or withdrawal of care, Hospice)? DNR status @ -No What co-morbidities impacted this encounter? (DM, HTN, Smoking, COPD, CAD, Cancer, CVA, ARF, Chemo, Hep., AIDS, mental health diagnosis, sleep apnea, morbid obesity)? @ -asthma, hypertension, PCOS, anxiety, depression, PTSD, chronic low back pain.. Surgical history of cholecystectomy Was patient admitted / discharged? Hospital course, mention meds given and route, prescriptions, significant lab abnormalities, going to OR and other pertinent info. @ -Discharged 37-year-old female presents to the emergency room with complaints of right lower quadrant abdominal pain since 3:00 this morning. Describes it as a dull, aching and constant. Denies any fevers. Does have nausea and vomiting states look like bile. Denies any dysuria or vaginal bleeding. Denies any chance of . Previous records show patient did have a pelvic ultrasound on 09/05/2020 showing a left ovarian cyst. Patient states this pain is different. She is concerned for appendicitis. On physical exam patient has right lower quadrant pain. Denies flank pain. Labs show mild leukocytosis. Electrolytes show glucose 142. Urinalysis shows moderate blood with no concern for infection. CT performed showing an obstructing 7 mm calculus just proximal to the UVJ an additional 6 mm at the UVJ. Patient was given Zofran for her nausea, IV fluids and Toradol with improvement in her pain. No further nausea. Vital signs are stable. Patient remains afebrile. Patient was prescribed Motrin and given a take home pack of Zofran. I directed her to strain all urine and call today to make an appointment for follow-up with urology. Strict return parameters were discussed for persistent nausea vomiting, increased pain or fevers. She is agreeable to this plan of care. Case discussed with Dr. Ibanez. Undiagnosed new problem with uncertain prognosis? @ -No Drug Therapy requiring intensive monitoring for toxicity (Heparin, Nitro, Insulin, Cardizem)? @ -No Were any procedures done? @ -No Diagnosis/symptom? @ -Obstructive right kidney stone Acute, or Chronic, or Acute on Chronic? @ -Acute Uncomplicated (without systemic symptoms) or Complicated (systemic symptoms)? @ -Uncomplicated Side effects of treatment? @ -No Exacerbation, Progression, or Severe Exacerbation? @ -No Poses a threat to life or bodily function? How? (Chest pain, [place], [place], pneumonia, PE, COPD, DKA, ARF, appy, cholecystitis, CVA, Diverticulitis, Homicidal, Suicidal, threat to staff... and all critical care pts) @ -No - Lab Data Result diagrams: 02/14/23 08:53 02/14/23 08:53 Lab Results 02/14/23 02/14/23 02/14/23 Range/Units 08:53 08:53 08:53 WBC 13.5 H (3.8-10.6) k/uL RBC 5.62 H (3.80-5.40) m/uL Hgb 16.2 H (11.4-16.0) gm/dL Hct 48.3 H (34.0-46.0) % MCV 86.0 (80.0-100.0) fL MCH 28.8 (25.0-35.0) pg MCHC 33.5 (31.0-37.0) g/dL RDW 13.5 (11.5-15.5) % Plt Count 284 (150-450) k/uL MPV 7.2 Neutrophils % 84 % Lymphocytes % 11 % Monocytes % 3 % Eosinophils % 1 % Basophils % 0 % Neutrophils # 11.3 H (1.3-7.7) k/uL Lymphocytes # 1.4 (1.0-4.8) k/uL Monocytes # 0.4 (0-1.0) k/uL Eosinophils # 0.1 (0-0.7) k/uL Basophils # 0.0 (0-0.2) k/uL PT 10.1 (9.0-12.0) sec INR 1.0 (<1.2) APTT 24.3 (22.0-30.0) sec Sodium (137-145) mmol/L Potassium (3.5-5.1) mmol/L Chloride (98-107) mmol/L Carbon Dioxide (22-30) mmol/L Anion Gap mmol/L BUN (7-17) mg/dL Creatinine (0.52-1.04) mg/dL Est GFR (CKD-EPI)AfAm (>60 ml/min/1.73 sqM) Est GFR (CKD-EPI)NonAf (>60 ml/min/1.73 sqM) Glucose (74-99) mg/dL Plasma Lactic Acid Dejan (0.7-2.0) mmol/L Calcium (8.4-10.2) mg/dL Total Bilirubin (0.2-1.3) mg/dL AST (14-36) U/L ALT (4-34) U/L Alkaline Phosphatase (38-126) U/L Total Protein (6.3-8.2) g/dL Albumin (3.5-5.0) g/dL Amylase (30-110) U/L Lipase (23-300) U/L Urine Color Yellow Urine Appearance Clear (Clear) Urine pH 8.0 (5.0-8.0) Ur Specific [place] 1.014 (1.001-1.035) Urine Protein Trace H (Negative) Urine Glucose (UA) Negative (Negative) Urine Ketones 1+ H (Negative) Urine Blood Moderate H (Negative) Urine Nitrite Negative (Negative) Urine Bilirubin Negative (Negative) Urine Urobilinogen <2.0 (<2.0) mg/dL Ur Leukocyte Esterase Negative (Negative) Urine RBC 50 H (0-5) /hpf Urine WBC 1 (0-5) /hpf Ur Squamous Epith Cells 10 H (0-4) /hpf Hyaline Casts 4 H (0-2) /lpf Urine Mucus Occasional H (None) /hpf 02/14/23 02/14/23 Range/Units 08:53 08:53 WBC (3.8-10.6) k/uL RBC (3.80-5.40) m/uL Hgb (11.4-16.0) gm/dL Hct (34.0-46.0) % MCV (80.0-100.0) fL MCH (25.0-35.0) pg MCHC (31.0-37.0) g/dL RDW (11.5-15.5) % Plt Count (150-450) k/uL MPV Neutrophils % % Lymphocytes % % Monocytes % % Eosinophils % % Basophils % % Neutrophils # (1.3-7.7) k/uL Lymphocytes # (1.0-4.8) k/uL Monocytes # (0-1.0) k/uL Eosinophils # (0-0.7) k/uL Basophils # (0-0.2) k/uL PT (9.0-12.0) sec INR (<1.2) APTT (22.0-30.0) sec Sodium 138 (137-145) mmol/L Potassium 4.0 (3.5-5.1) mmol/L Chloride 100 (98-107) mmol/L Carbon Dioxide 28 (22-30) mmol/L Anion Gap 10 mmol/L BUN 15 (7-17) mg/dL Creatinine 0.75 (0.52-1.04) mg/dL Est GFR (CKD-EPI)AfAm >90 (>60 ml/min/1.73 sqM) Est GFR (CKD-EPI)NonAf >90 (>60 ml/min/1.73 sqM) Glucose 142 H (74-99) mg/dL Plasma Lactic Acid Dejan 1.9 (0.7-2.0) mmol/L Calcium 9.4 (8.4-10.2) mg/dL Total Bilirubin 1.2 (0.2-1.3) mg/dL AST 33 (14-36) U/L ALT 37 H (4-34) U/L Alkaline Phosphatase 84 (38-126) U/L Total Protein 7.7 (6.3-8.2) g/dL Albumin 4.5 (3.5-5.0) g/dL Amylase 39 (30-110) U/L Lipase 56 (23-300) U/L Urine Color Urine Appearance (Clear) Urine pH (5.0-8.0) Ur Specific [place] (1.001-1.035) Urine Protein (Negative) Urine Glucose (UA) (Negative) Urine Ketones (Negative) Urine Blood (Negative) Urine Nitrite (Negative) Urine Bilirubin (Negative) Urine Urobilinogen (<2.0) mg/dL Ur Leukocyte Esterase (Negative) Urine RBC (0-5) /hpf Urine WBC (0-5) /hpf Ur Squamous Epith Cells (0-4) /hpf Hyaline Casts (0-2) /lpf Urine Mucus (None) /hpf Disposition Clinical Impression: Kidney stone on right side Disposition: HOME SELF-CARE Condition: Good Instructions (If sedation given, give patient instructions): Kidney Stones (ED), How to Strain Your Urine (ED) Additional Instructions: Increase your fluid intake. Motrin for pain. Zofran as needed for any nausea. Strain your urine to obtain stone to take too urology. Follow-up with urology. Make an appointment today. Return to the emergency room with any new or concerning symptoms include fever, back pain or persistent nausea vomiting. Prescriptions: Ibuprofen [Motrin] 600 mg PO Q8HR PRN #30 tab PRN Reason: Pain Is patient prescribed a controlled substance at d/c from ED?: No Referrals: Haja Randolph MD [Primary Care Provider] - 1-2 days Ian Gallo MD [STAFF PHYSICIAN] - 1-2 days Time of Disposition: 10:11
[2023-02-14 09:07] LABS: Basophils % (A) 0 %; Eosinophils # (A) 0.1 k/uL (0-0.7); Eosinophils % (A) 1 %; HCT 48.3 % (34.0-46.0); HGB 16.2 gm/dL (11.4-16.0); Lymphocytes # (A) 1.4 k/uL (1.0-4.8); Lymphocytes % (A) 11 %; MCH 28.8 pg (25.0-35.0); MCHC 33.5 g/dL (31.0-37.0); Mean Platelet Volume 7.2; Monocytes # (A) 0.4 k/uL (0-1.0); Monocytes % (A) 3 %; Neutrophils # (A) 11.3 k/uL (1.3-7.7); Neutrophils % (A) 84 %; Platelet Count 284 k/uL (150-450); RBC 5.62 m/uL (3.80-5.40); RDW 13.5 % (11.5-15.5); WBC 13.5 k/uL (3.8-10.6)
[2023-02-14 09:14] LABS: Partial Thromboplastin Time 24.3 sec (22.0-30.0); Prothrombin Time 10.1 sec (9.0-12.0)
[2023-02-14 09:15] LABS: Appearance,Urine Clear (Clear); Bilirubin,Urine Negative (Negative); Blood,Urine Moderate (Negative); Color,Urine Yellow; Glucose,Urine (UA) Negative (Negative); Hyaline Casts,Urine 4 /lpf (0-2); Ketones,Urine 1+ (Negative); Leukocyte Esterase,Urine Negative (Negative); Mucus,Urine Occasional /hpf; Nitrite,Urine Negative (Negative); Protein,Urine Trace (Negative); RBC,Urine 50 /hpf (0-5); Specific Gravity,Urine 1.014 (1.001-1.035); Squamous Epithelial Cell,Urine 10 /hpf (0-4); Urobilinogen,Urine <2.0 mg/dL (<2.0); WBC,Urine 1 /hpf (0-5)
[2023-02-14 09:16] LABS: ALT 37 U/L (4-34); AST 33 U/L (14-36); African American GFR (CKD) >90 (>60 ml/min/1.73 sqM); Albumin 4.5 g/dL (3.5-5.0); Alkaline Phosphatase 84 U/L (38-126); Amylase 39 U/L (30-110); Anion Gap 10 mmol/L; Blood Urea Nitrogen 15 mg/dL (7-17); Calcium 9.4 mg/dL (8.4-10.2); Carbon Dioxide 28 mmol/L (22-30); Chloride 100 mmol/L (98-107); Glucose 142 mg/dL (74-99); Lipase 56 U/L (23-300); Non-African American GFR(CKD) >90 (>60 ml/min/1.73 sqM); Sodium 138 mmol/L (137-145); Total Bilirubin 1.2 mg/dL (0.2-1.3); Total Protein 7.7 g/dL (6.3-8.2)
--- NOTE | 2023-02-14 09:59 | CT ---
EXAMINATION TYPE: CT abdomen pelvis w con CT DLP: 2465.6 mGycm, Automated exposure control for dose reduction was used. DATE OF EXAM: 02/14/2023 9:38 AM COMPARISON: 09/09/2016 CLINICAL INDICATION:Female, 37 years old with history of abdominal pain; RLQ pain TECHNIQUE: Axial CT of the abdomen and pelvis. Sagittal and coronal reformats were created on a [employer] workstation. Contrast used:100 mL of Isovue 300 with IV Contrast, (none if empty) Oral contrast used: without Oral Contrast (none if empty) FINDINGS: LOWER CHEST: Unremarkable ABDOMEN LIVER: Diffusely hypoattenuating parenchyma. GALLBLADDER AND BILE DUCTS: The gallbladder is surgically absent. PANCREAS: Unremarkable. SPLEEN: Unremarkable. ADRENAL GLANDS: Unremarkable. KIDNEYS AND URETERS: Mild right nephrosis from an obstructing calculus of the distal ureter just prox imal to ureterovesicular junction measuring 7 mm and an additional calculus also visualized at the ur eterovesicular junction measuring 6 mm. No obstructing left renal calculi. No left obstructive uropat hy. PELVIS BLADDER: Unremarkable REPRODUCTIVE: Unremarkable. ABDOMEN & PELVIS STOMACH AND BOWEL: No evidence of bowel obstruction. PERITONEUM/RETROPERITONEUM: No evidence of pneumoperitoneum or free fluid. VASCULATURE: No evidence of aortic aneurysm. MUSCULOSKELETAL: No acute osseous abnormalities LYMPH NODES: No gross evidence for lymphadenopathy. SOFT TISSUE/ABDOMINAL WALL: Unremarkable IMPRESSION: 1. Mild right nephrosis from an obstructing calculus of the distal ureter just proximal to ureterove sicular junction measuring 7 mm and an additional calculus also visualized at the ureterovesicular ju nction measuring 6 mm. No obstructing left renal calculi. 2. Hepatic steatosis.
[2023-02-14] MEDS ORDERED: ONDANSETRON 4 MG ODT STARTER PACK 2 TAB BTL PO STA (10:12)
[2023-02-14 10:29] VITALS: BP 112/62; PULSE 73; TEMP 98.3
== END 2023-02-14 10:22 | disposition home or self-care (01) ==
LOC: EC 08:08
DX: K76.0 Fatty (change of) liver, not elsewhere classified (principal); I10 Essential (primary) hypertension; J45.909 Unspecified asthma, uncomplicated; F41.9 Anxiety disorder, unspecified; F32.A Depression, unspecified; F12.90 Cannabis use, unspecified, uncomplicated; F17.200 Nicotine dependence, unspecified, uncomplicated; Z79.899 Other long term (current) drug therapy; Z88.8 Allergy status to other drugs, medicaments and biological substances
CPT/HCPCS: 36415; 80053; 82150; 83605; 83690; 85025; 85610; 85730; 81001; 74177; 99284; 96374; 96375; J2405; J1885; S0119; Q9967

== ENCOUNTER → 2023-03-07 | Outpatient (CLI) | payer OTHER ==
--- NOTE | 2023-03-07 13:27 | XR ---
EXAMINATION TYPE: XR KUB DATE OF EXAM: 03/07/2023 COMPARISON: CT abdomen pelvis 02/14/2023 HISTORY: Calculus ureter TECHNIQUE: Supine KUB image of the abdomen is obtained FINDINGS: Small bowel demonstrates no evidence for dilatation or air fluid levels. Gas and fecal material is seen in non-distended colon. 4 mm calculus in the region of the right ureterovesical junction. No definitive ureteral calculi or r enal calculi. Cholecystectomy clips in the right upper quadrant. The osseous structures are intact. IMPRESSION: 1. Overall nonobstructive bowel gas pattern. 2. 4 m calculus in the region of the right ureterovesical junction which is in similar position to pr ior CT.
== END | disposition home or self-care (01) ==
LOC: RADXRMAIN 12:38
PROVIDERS: ATTEND Urology
DX: N20.1 Calculus of ureter (principal)
CPT/HCPCS: 74018

== ENCOUNTER → 2023-04-18 | Outpatient (CLI) | payer OTHER ==
--- NOTE | 2023-04-18 13:31 | XR ---
EXAMINATION TYPE: XR KUB DATE OF EXAM: 04/18/2023 HISTORY: Pain Comparison: 03/07/2023Single KUB is submitted for interpretation. Findings: Right renal calculi: None Visualized. Right ureteral calculi: Stable appearing calcific density within the expected location of the right U VJ measuring 4.7 mm versus 4.2 mm measured previously. Left renal calculi: None Visualized. Left ureteral calculi: None Visualized. Pelvic calcifications: None Visualized. Bowel gas pattern is unremarkable. No free air. No mass effects. IMPRESSION: 1. Stable appearing calcific density within the expected location of the right UVJ measuring 4.7 mm v ersus 4.2 mm measured previously.
== END | disposition home or self-care (01) ==
LOC: RADXRMAIN 13:00
PROVIDERS: ATTEND Urology
DX: N20.1 Calculus of ureter (principal)
CPT/HCPCS: 74018

== ENCOUNTER → 2023-05-20 | Outpatient (CLI) | payer OTHER ==
[2023-05-20 15:35] LABS: Basophils # (A) 0.05 X 10*3/uL (0.00-0.10); Basophils % (A) 0.5 %; Eosinophils # (A) 0.32 X 10*3/uL (0.04-0.35); Eosinophils % (A) 3.2 %; HCT 46.9 % (37.2-46.3); HGB 15.4 d/dL (12.0-15.0); Lymphocytes # (A) 2.65 X 10*3/uL (0.90-5.00); Lymphocytes % (A) 26.2 %; MCH 28.7 pg (27.0-32.0); MCHC 32.8 d/dL (32.0-37.0); MCV 87.5 FL (80.0-97.0); Mean Platelet Volume 9.8 FL (9.5-12.2); Monocytes # (A) 0.79 X 10*3/uL (0.20-1.00); Monocytes % (A) 7.8 %; NRBC Per 100 WBC 0 X 10*3/uL (0.00-0.01); Neutrophils # (A) 6.26 X 10*3/uL (1.80-7.70); Platelet Count 307 X 10*3/uL (140-440); RBC 5.36 X 10*6/uL (4.10-5.20); RDW 13.5 % (11.5-14.5)
[2023-05-20 22:16] LABS: Blood Urea Nitrogen 18.2 mg/dL (9.0-27.0); Calcium 10.1 mg/dL (8.7-10.3); Carbon Dioxide 26.9 mmol/L (21.6-31.8); Chloride 102 mmol/L (96-109); Glucose 94 mg/dL (70-110); Potassium 4.2 mmol/L (3.5-5.5); Sodium 140 mmol/L (135-145)
== END | disposition home or self-care (01) ==
LOC: LABPAT 08:52
PROVIDERS: ATTEND Urology
DX: Z01.812 Encounter for preprocedural laboratory examination (principal); N20.1 Calculus of ureter
CPT/HCPCS: 36415; 80048; 85025

== ENCOUNTER 2023-05-23 07:07 | Day surgery (SDC) | payer OTHER ==
[2023-05-20 10:34] VITALS: BMI 45.3
--- NOTE | 2023-05-22 07:08 | P.GSHP ---
History of Present Illness H&P Date: 05/22/23 Chief Complaint: Right-sided abdominal pain The patient is a 37-year-old white female with no prior history of urolithiasis. In early February, she experienced right lower abdominal pain. Computed tomography scan showed mild right hydronephrosis secondary to 2 right distal ur eteral calculi, each measuring 6-7 mm in size. She was offered the options of medical expulsion therapy versus ureteroscopic removal of the calculi and chose the former. It appears that the more distal ureteral calculus has passed, but the other calculus has been seen within the right distal ureter near the UVJ on serial radiographs. She reports occasional right flank pain and nausea. - Cardiovascular Cardiovascular: Reports high blood pressure - Gastrointestinal Gastrointestinal: Reports nausea - Genitourinary (Female) Genitourinary: Reports flank pain, Reports kidney stones, Denies dysuria, Denies hematuria Past Medical History Past Medical History: Asthma, Hypertension, Sleep Apnea/CPAP/BIPAP Additional Past Medical History / Comment(s): CHRONIC LOW BACK PAIN. PCOS, KIDNEY STONES, USES CPAP, ANEMIA History of Any Multi-Drug Resistant Organisms: None Reported Past Surgical History: Adenoidectomy, Section, Cholecystectomy, Tonsillectomy Past Anesthesia/Blood Transfusion Reactions: No Reported Reaction Smoking Status: Current every day smoker - Past Family History Mother Family Medical History: Diabetes Mellitus, Hypertension Medications and Allergies Home Medications Medication Instructions Recorded Confirmed Type traMADol HCL 50 - 100 mg PO BID PRN 09/13/20 05/20/23 History hydroCHLOROthiazide [Hydrodiuril] 25 mg PO BID 09/20/20 05/20/23 History Cholecalciferol [Vitamin D3 (25 50 mcg PO DAILY 02/14/23 05/20/23 History Mcg = 1000 Iu)] Escitalopram [Lexapro] 20 mg PO DAILY 02/14/23 05/20/23 History Ferrous Sulfate [Feosol] 325 mg PO DAILY 02/14/23 05/20/23 History Prazosin HCl 2 mg PO HS 02/14/23 05/20/23 History amLODIPine [Norvasc] 2.5 mg PO DAILY 02/14/23 05/20/23 History buPROPion XL [Wellbutrin XL] 300 mg PO DAILY 02/14/23 05/20/23 History lisinopriL 40 mg PO DAILY 02/14/23 05/20/23 History Allergies Allergy/AdvReac Type Severity Reaction Status Date / Time cephradine [From Velosef] Allergy Intermediate Rash/Hives Verified 05/20/23 10:17 Surgical - Exam - General well developed, well nourished, no distress - Neck no masses, trachea midline - Respiratory normal respiratory effort - Abdomen Abdomen: soft, no masses - Psychiatric oriented to time, oriented to person, oriented to place, speech is normal, memory intact Results - Imaging CT scan - abdomen: report reviewed, image reviewed Assessment and Plan (1) Calculus of ureter Status: Acute Code(s): N20.1 - CALCULUS OF URETER SNOMED Code(s): 80036572 Plan: Cystoscopy, right retrograde pyelogram, right ureteroscopy with Holmium laser lithotripsy and stone basketing, possible right ureteral stent insertion. The procedure has been reviewed in detail with the patient. She has been made aware of potential risks, which include anesthesia, bleeding, infection, ureteral injury, and inability to successfully remove the calculus.
[~2023-05-23 07:07] MED LIST changes: -DEXAMETHASONE SOD PHOSPHATE 4 MG/ML 1 ML VIAL IV ONE; -HYDROmorphone 0.5 MG/0.5 ML SYRINGE IVP PRN; -LACTATED RINGERS 1,000 ML IV SCH; +LEVOFLOXACIN 500MG-D5W PMX 500 MG in DEXTROSE/WATER 1 100ML.BAG IVPB PRN; -LIDOCAINE 1% (10MG/ML) FOR IV START INTRADERMA PRN; -MIDAZOLAM 2 MG/2 ML VIAL IV PRN; -ONDANSETRON 4 MG/2 ML VIAL IVP ONE; -Pre Op ABX Message 1 EACH MISC MISCELLANE ONE
--- NOTE | 2023-05-23 07:27 | XR ---
EXAMINATION TYPE: XR KUB DATE OF EXAM: 05/23/2023 7:19 AM CLINICAL INDICATION:Female, 37 years old with history of N20.1 right ureteral calculus; [facility] COMPARISON: 02/14/2023 ct TECHNIQUE: One radiographic view of the abdomen was obtained. FINDINGS: The bowel gas pattern is nonspecific without dilated loops of small or large bowel. There i s no evidence for organomegaly or pneumoperitoneum. The osseous structures are intact. Fecal materi al and gas are demonstrated throughout the colon and rectum. Stable right pelvic calcification measuring 6 mm. A second calculus seen on prior CT is not visualize d. IMPRESSION: 6 mm distal right ureteral calculus is unchanged in position. A second calculus seen on 02/14/2023 CT a t the ureterovesicular junction is no longer visualized similar to prior exam on 04/18/2023.
[2023-05-23] MEDS ORDERED: ONDANSETRON 4 MG/2 ML VIAL ONE (08:01)
[2023-05-23] MEDS ORDERED: FAMOTIDINE 20 MG/2 ML VIAL IVP ONE (08:04)
[2023-05-23] MEDS ORDERED: DEXAMETHASONE SOD PHOSPHATE 4 MG/ML 1 ML VIAL IVP ONE (08:04)
[2023-05-23] MEDS ORDERED: ONDANSETRON 4 MG/2 ML VIAL IVP ONE (08:04)
[2023-05-23] MEDS ORDERED: LACTATED RINGERS 1,000 ML IV ONE (08:04)
[2023-05-23] MEDS ORDERED: fentaNYL (PF) 50 MCG/ML 2 ML AMP ONE (08:54)
[2023-05-23] MEDS ORDERED: LIDOCAINE 1% INJ 10MG/ML (20 ML MDV) ONE (08:54)
[2023-05-23] MEDS ORDERED: PROPOFOL 10 MG/ML 20 ML VIAL IV ONE (08:54)
[2023-05-23] MEDS ORDERED: MIDAZOLAM 2 MG/2 ML VIAL ONE (08:54)
[2023-05-23] MEDS ORDERED: HYDROmorphone 0.5 MG/0.5 ML SYRINGE IVP PRN (08:56)
[2023-05-23] MEDS ORDERED: DEXAMETHASONE SOD PHOSPHATE 4 MG/ML 1 ML VIAL IV ONE (08:56)
[2023-05-23] MEDS ORDERED: LACTATED RINGERS 1,000 ML IV SCH (08:56)
--- NOTE | 2023-05-23 09:25 | P.OP ---
Date of Procedure: 05/23/23 Preoperative Diagnosis: Right ureteral calculus Postoperative Diagnosis: Same Procedure(s) Performed: Cystoscopy, right ureteroscopy Anesthesia: CLARISA Surgeon: Ian Gallo Estimated Blood Loss (ml): 0 IV fluids (ml): 100 Pathology: none sent Condition: stable Disposition: PACU Indications for Procedure: The patient is a 37-year-old white female with no prior history of urolithiasis. In early February, she experienced right lower abdominal pain. Computed tomography scan showed mild right hydronephrosis secondary to 2 right distal ureteral calculi, each measuring 6-7 mm in size. She was offered the options of medical expulsion therapy versus ureteroscopic removal of the calculi and chose the former. It appears that the more distal ureteral calculus has passed, but the other calculus has been seen within the right distal ureter near the UVJ on serial radiographs. She reports occasional right flank pain and nausea. Operative Findings: No evidence of right ureteral calculus. Description of Procedure: The patient was taken to the operating room and placed in the dorsolithotomy position, with legs supported in Oliver stirrups. The external genitalia was prepped and draped sterilely. The 30 lens was used to introduce the 21-Greenlandic Singh cystoscopic sheath through the urethra and into the bladder under direct vision. The bladder was examined in its entirety. Both ureteral orifices were normal anatomic location and configuration, and clear urine effluxed from both. No tumors or foreign bodies were seen. A 10-Greenlandic cone-tipped catheter was advanced into the right ureteral orifice to dilate the intramural portion of the ureter. The cystoscope was then removed. The Singh semirigid ureteroscope was advanced into the bladder, and the right ureteral orifice was cannulated. The ureteroscope was slowly advanced under direct vision, up to the ureteropelvic junction. No calculi were seen. It is noteworthy that no calculi were seen on fluoroscopy, though a calcification was seen within the right hemipelvis on the preoperative KUB x-ray. The ureteroscope was withdrawn and the procedure was terminated. The patient tolerated the procedure well and was taken to the recovery room in stable condition.
[2023-05-23 09:46] VITALS: TEMP 97.2
--- NOTE | 2023-05-23 09:55 | FL ---
Intraoperative/procedural fluoroscopic services were provided for cystoscopy. Total fluoroscopy time is 4 seconds with a total of 1 submitted image to PACS. Total DAP 0.5580 Gycm2. Please see the opera tive note for further details.
[2023-05-23 10:11] VITALS: RESP 16
[2023-05-23 10:40] VITALS: BP 134/87; PULSE 77
== END 2023-05-23 10:35 | disposition home or self-care (01) ==
LOC: OR 07:07
PROVIDERS: ATTEND Urology
DX: N13.2 Hydronephrosis with renal and ureteral calculous obstruction (principal); J45.909 Unspecified asthma, uncomplicated; I10 Essential (primary) hypertension; G47.30 Sleep apnea, unspecified; F17.210 Nicotine dependence, cigarettes, uncomplicated; E66.01 Morbid (severe) obesity due to excess calories; Z68.41 Body mass index [BMI] 40.0-44.9, adult; Z90.49 Acquired absence of other specified parts of digestive tract; Z98.890 Other specified postprocedural states; Z88.1 Allergy status to other antibiotic agents; Z79.83 Long term (current) use of bisphosphonates; Z79.899 Other long term (current) drug therapy
CPT/HCPCS: 52351; 81025; 74018; C1758; J2250; J1100; J2405; J1956; J2001; J3010; J3490; J2704

== ENCOUNTER → 2023-05-30 | Outpatient (CLI) | payer OTHER ==
[2023-05-30 16:15] LABS: African American GFR (CKD) >90 (>60 ml/min/1.73 sqM); Blood Urea Nitrogen 16 mg/dL (7-17); Non-African American GFR(CKD) >90 (>60 ml/min/1.73 sqM)
--- NOTE | 2023-05-31 10:30 | CT ---
EXAMINATION TYPE: CT abdomen pelvis wo/w con DATE OF EXAM: 05/30/2023 COMPARISON: 02/14/2023 INDICATION: States that she went into have a kidney stone removed and the doctor could not find kidne y stone in right ureter DLP: 3494.5 mGycm, Automated exposure control for dose reduction was used. CONTRAST: 100cc mL of Isovue 300. Study performed with Oral Contrast TECHNIQUE: Axial images were obtained from above the diaphragm to the pubic rami in the axial plane a t 5 mm thick sections. Reconstructed images are reviewed on the computer in the coronal plane. FINDINGS: Limited CT sections are obtained the lung bases. The lung bases are clear. CT ABDOMEN: Liver: Normal Spleen: Normal Pancreas: Normal Adrenal glands: The adrenal glands are normal. Gallbladder: Surgically absent Kidneys: No masses are evident. No hydronephrosis is present. No cysts are present. No renal stone s are identified. Aorta: Normal Inferior vena cava: Normal. CT PELVIS: Loops of bowel within the abdomen and pelvis are normal. There are loops of bowel which are incom pletely distended or lack oral contrast limiting their evaluation. Appendix: Not identified. Urinary bladder: Normal. A previous suspected 0.6 cm calcification within the urinary bladder is not identified on the current examination. Phlebolith remains present inferior and lateral to the uretera l vesicle junction. Genitourinary structures: Uterus is normal. Adnexa are clear Osseous structures: No suspicious lytic or sclerotic lesions. Degenerative disc changes with vacuum d isc phenomenon is present L5-S1. Vertebral body heights are preserved. IMPRESSION: 1. Previous urinary bladder calcification is not identified. No suspicious renal or ureteral stones evident.
== END | disposition home or self-care (01) ==
LOC: RADCTMAIN 15:16
PROVIDERS: ATTEND Urology
DX: N13.2 Hydronephrosis with renal and ureteral calculous obstruction (principal); Z90.49 Acquired absence of other specified parts of digestive tract
CPT/HCPCS: 82565; 84520; 74178; 36415; Q9967

== ENCOUNTER 2023-06-20 10:11 | Emergency (ER) | payer OTHER ==
--- NOTE | 2023-06-20 10:28 | ED ---
Upper Extremity HPI - General Chief Complaint: Extremity Injury, Upper Stated Complaint: left elbow injury Time Seen by Provider: 06/20/23 10:18 Source: patient, RN notes reviewed Mode of arrival: ambulatory Limitations: no limitations - History of Present Illness Initial Comments: 37-year-old female presents emergency Department with chief complaint of left elbow pain. Patient states she fell plantar on she states that she didn't check her child she fell onto her left elbow onto tile britni. No head injury no other complaints patient is right-hand dominant - Related Data Home Medications Medication Instructions Recorded Confirmed traMADol HCL 50 - 100 mg PO BID PRN 09/13/20 05/20/23 hydroCHLOROthiazide [Hydrodiuril] 25 mg PO BID 09/20/20 05/20/23 Cholecalciferol [Vitamin D3 (25 50 mcg PO DAILY 02/14/23 05/20/23 Mcg = 1000 Iu)] Escitalopram [Lexapro] 20 mg PO DAILY 02/14/23 05/20/23 Ferrous Sulfate [Feosol] 325 mg PO DAILY 02/14/23 05/20/23 Prazosin HCl 2 mg PO HS 02/14/23 05/20/23 amLODIPine [Norvasc] 2.5 mg PO DAILY 02/14/23 05/20/23 buPROPion XL [Wellbutrin XL] 300 mg PO DAILY 02/14/23 05/20/23 lisinopriL 40 mg PO DAILY 02/14/23 05/20/23 Allergies Allergy/AdvReac Type Severity Reaction Status Date / Time cephradine [From Velosef] Allergy Intermediate Rash/Hives Verified 06/20/23 10:14 Review of Systems ROS Statement: Those systems with pertinent positive or pertinent negative responses have been documented in the HPI. ROS Other: All systems not noted in ROS Statement are negative. Past Medical History Past Medical History: Asthma, Hypertension Additional Past Medical History / Comment(s): CHRONIC LOW BACK PAIN. PCOS History of Any Multi-Drug Resistant Organisms: None Reported Past Surgical History: Adenoidectomy, Section, Cholecystectomy, Tonsillectomy Past Anesthesia/Blood Transfusion Reactions: No Reported Reaction Past Psychological History: Anxiety, Depression, PTSD Smoking Status: Current every day smoker Past Alcohol Use History: None Reported Past Drug Use History: Marijuana - Past Family History Mother Family Medical History: Diabetes Mellitus, Hypertension General Exam Limitations: no limitations General appearance: alert, in no apparent distress Head exam: Present: atraumatic, normocephalic, normal inspection Eye exam: Present: normal appearance, PERRL, EOMI. Absent: scleral icterus, conjunctival injection, periorbital swelling ENT exam: Present: normal exam, normal oropharynx, mucous membranes moist Neck exam: Present: normal inspection, full ROM. Absent: tenderness, meningismus, lymphadenopathy Respiratory exam: Present: normal lung sounds bilaterally. Absent: respiratory distress, wheezes, rales, rhonchi, stridor Cardiovascular Exam: Present: regular rate, normal rhythm, normal heart sounds. Absent: systolic murmur, diastolic murmur, rubs, gallop, clicks Extremities exam: Present: other (left elbow tenderness, full ROM, no ecchymosis no obvious deformity) Course Vital Signs 06/20/23 10:14 Temperature 98.2 F Pulse Rate 67 Respiratory 18 Rate Blood Pressure 135/90 O2 Sat by Pulse 97 Oximetry Medical Decision Making - Medical Decision Making Was pt. sent in by a medical professional or institution ([facility]OR[facility]BERTO [facility], DATA WAREHOUSE SPECIALIST, urgent care, hospital, or detention...) When possible be specific @ -No Did you speak to anyone other than the patient for history (EMS, parent, family, police, friend...)? What history was obtained from this source @ -No Did you review nursing and triage notes (agree or disagree)? Why? @ -I reviewed and agree with nursing and triage notes Were old charts reviewed (outside hosp., previous admission, EMS record, old EKG, old radiological studies, urgent care reports/EKG's, detention records)? Report findings @ -No old charts were reviewed Differential Diagnosis (chest pain, altered mental status, abdominal pain women, abdominal pain men, vaginal bleeding, weakness, fever, dyspnea, syncope, headache, dizziness, GI bleed, back pain, seizure, CVA, palpatations, mental health, musculoskeletal)? @ -Fall, help in vision, ulnar fracture EKG interpreted by me (3pts min.). @ -[None X-rays interpreted by me (1pt min.). @ -X-ray left elbow no acute fracture dislocation CT interpreted by me (1pt min.). @ -None done U/S interpreted by me (1pt. min.). @ -None done What testing was considered but not performed or refused? (CT, X-rays, U/S, labs)? Why? @ -None What meds were considered but not given or refused? Why? @ -None Did you discuss the management of the patient with other professionals (pro fessionals i.e. , PA, DATA WAREHOUSE SPECIALIST, lab, RT, psych nurse, child welfare social worker, geoscience laboratory technician, teacher, digital marketing officer, case management director)? Give summary @ -No Was smoking cessation discussed for >3mins.? @ -No Was critical care preformed (if so, how long)? @ -No Were there social determinants of health that impacted care today? How? (Homelessness, low income, unemployed, alcoholism, drug addiction, transportation, low edu. Level, literacy, decrease access to med. care, residential, rehab)? @ -No Was there de-escalation of care discussed even if they declined (Discuss DNR or withdrawal of care, Hospice)? DNR status @ -No What co-morbidities impacted this encounter? (DM, HTN, Smoking, COPD, CAD, Cancer, CVA, ARF, Chemo, Hep., AIDS, mental health diagnosis, sleep apnea, morbid obesity)? @ -None Was patient admitted / discharged? Hospital course, mention meds given and route, prescriptions, significant lab abnormalities, going to OR and other pertinent info. @ -Discharge x-rays are negative for acute fracture. Patient has a left elbow contusion return parameters were discussed. Undiagnosed new problem with uncertain prognosis? @ -No Drug Therapy requiring intensive monitoring for toxicity (Heparin, Nitro, Insulin, Cardizem)? @ -No Were any procedures done? @ -No Diagnosis/symptom? @ -Fall, elbow contusion Acute, or Chronic, or Acute on Chronic? @ -Acute Uncomplicated (without systemic symptoms) or Complicated (systemic symptoms)? @ -[Uncomplicated Side effects of treatment? @ -No Exacerbation, Progression, or Severe Exacerbation? @ -No Poses a threat to life or bodily function? How? (Chest pain, USA, PA, pneumonia, PE, COPD, DKA, ARF, appy, cholecystitis, CVA, Diverticulitis, Homicidal, Suicidal, threat to staff... and all critical care pts) @ -No Disposition Clinical Impression: Left elbow contusion Disposition: HOME SELF-CARE Condition: Stable Instructions (If sedation given, give patient instructions): Contusion in Adults (ED) Additional Instructions: Please return to the Emergency Department if symptoms worsen or any other concerns. Is patient prescribed a controlled substance at d/c from ED?: No Referrals: Haja Randolph MD [Primary Care Provider] - 1-2 days Time of Disposition: 11:23
--- NOTE | 2023-06-20 10:54 | XR ---
EXAMINATION TYPE: XR elbow complete LT DATE OF EXAM: 06/20/2023 CLINICAL HISTORY: Pain. Recent fall injury. TECHNIQUE: Frontal, lateral and oblique images of the left elbow are obtained. COMPARISON: None FINDINGS: There is no acute fracture/dislocation evident in the left elbow. No abnormal fat pad sig ns are seen. The overlying soft tissue appears unremarkable. IMPRESSION: There is no acute fracture or dislocation in the left elbow.
[2023-06-20 11:50] VITALS: BP 140/68; PULSE 68; RESP 16; TEMP 98.4
== END 2023-06-20 11:42 | disposition home or self-care (01) ==
LOC: EC 10:11
DX: S50.02XA Contusion of left elbow, initial encounter (principal); I10 Essential (primary) hypertension; J45.909 Unspecified asthma, uncomplicated; F17.200 Nicotine dependence, unspecified, uncomplicated; F12.90 Cannabis use, unspecified, uncomplicated; F41.9 Anxiety disorder, unspecified; F32.A Depression, unspecified; Z79.899 Other long term (current) drug therapy; Z88.8 Allergy status to other drugs, medicaments and biological substances; W19.XXXA Unspecified fall, initial encounter
CPT/HCPCS: 99283

== ENCOUNTER → 2023-08-08 | Outpatient (CLI) | payer OTHER ==
--- NOTE | 2023-08-08 15:16 | CT ---
EXAMINATION TYPE: CT abdomen pelvis wo con DATE OF EXAM: 08/08/2023 COMPARISON: 05/30/2023 INDICATION: right flank pain no hematuria DLP: 1215 mGycm, Automated exposure control for dose reduction was used. CONTRAST: 0 mL of Isovue 300. Study performed without Oral Contrast TECHNIQUE: Axial images were obtained from above the diaphragm to the pubic rami in the axial plane a t 5 mm thick sections. Reconstructed images are reviewed on the computer in the coronal plane. FINDINGS: Limited CT sections are obtained the lung bases. The lung bases are clear. CT ABDOMEN: Liver: Normal Spleen: Normal Pancreas: Normal Adrenal glands: The adrenal glands are normal. Gallbladder: Surgically absent Kidneys: No masses are evident. No hydronephrosis is present. No cysts are present. No renal stone s are evident. No hydroureter is noted. Aorta: Normal Inferior vena cava: Normal. CT PELVIS: Loops of bowel within the abdomen and pelvis are normal. The study is without oral contrast limit ing bowel evaluation. Appendix: Not identified. No dilated tubular structure or inflammatory change is evident. Urinary bladder: Decompressed with limited evaluation. Genitourinary structures: Uterus and ovaries appear normal Osseous structures: No suspicious lytic or sclerotic lesions. IMPRESSION: 1. No suspicious renal or ureteral stones.
== END | disposition home or self-care (01) ==
LOC: RADCTMAIN 12:20
PROVIDERS: ATTEND Family Medicine
DX: R10.9 Unspecified abdominal pain (principal)
CPT/HCPCS: 74176

== ENCOUNTER → 2023-12-13 | Outpatient (CLI) | payer OTHER ==
[2023-12-13 15:10] LABS: Basophils # (A) 0.05 X 10*3/uL (0.00-0.10); Basophils % (A) 0.5 %; Eosinophils # (A) 0.23 X 10*3/uL (0.04-0.35); Eosinophils % (A) 2.3 %; HCT 45.5 % (37.2-46.3); HGB 14.9 g/dL (12.0-15.0); MCH 28.7 pg (27.0-32.0); MCHC 32.7 g/dL (32.0-37.0); MCV 87.7 FL (80.0-97.0); Mean Platelet Volume 9.6 FL (9.5-12.2); Monocytes # (A) 0.74 X 10*3/uL (0.20-1.00); Monocytes % (A) 7.4 %; NRBC Per 100 WBC 0 X 10*3/uL (0.00-0.01); Neutrophils # (A) 6.24 X 10*3/uL (1.80-7.70); Neutrophils % (A) 62.4 %; Platelet Count 273 X 10*3/uL (140-440); RBC 5.19 X 10*6/uL (4.10-5.20); RDW 12.9 % (11.5-14.5)
[2023-12-13 16:12] LABS: % Iron Saturation 10.86 (12.00-45.00); ALT 25 U/L (8-44); AST 15 U/L (13-35); Albumin 4.3 g/dL (3.8-4.9); Albumin/Globulin Ratio 1.87 Ratio (1.60-3.17); Alkaline Phosphatase 68 U/L (41-126); Blood Urea Nitrogen 17.5 mg/dL (9.0-27.0); Carbon Dioxide 24.6 mmol/L (21.6-31.8); Chloride 103 mmol/L (96-109); Chol/HDL Ratio 4.35 Ratio; Ferritin 45.2 ng/mL (10.0-291.0); Globulin 2.3 g/dL (1.6-3.3); Glucose 87 mg/dL (70-110); Iron 38 UG/DL (50-170); LDL Cholesterol,Calculated 97.4 mg/dL (0.0-131.0); Potassium 4.3 mmol/L (3.5-5.5); Sodium 138 mmol/L (135-145); T4, Free (Free Thyroxine) 1.37 ng/dL (0.80-1.80); Total Bilirubin 0.3 mg/dL (0.3-1.2); Total Iron Binding Capacity 350 UG/DL (228-460); Total Protein 6.6 g/dL (6.2-8.2)
[2023-12-14 14:02] LABS: Cryptosporidium Antigen Negative (Negative)
== END | disposition home or self-care (01) ==
LOC: LABWHC1 08:13
PROVIDERS: ATTEND Family Medicine
DX: Z00.01 Encounter for general adult medical examination with abnormal findings (principal); D50.9 Iron deficiency anemia, unspecified; E55.9 Vitamin D deficiency, unspecified
CPT/HCPCS: 36415; 80053; 80061; 82306; 82728; 83036; 83540; 83550; 83630; 83993; 84439; 84443; 85025; 87045; 87046; 87324; 87328; 87329

== ENCOUNTER 2024-04-16 16:45 | Emergency (ER) | payer OTHER ==
--- NOTE | 2024-04-16 17:10 | ED ---
Headache HPI - General Chief Complaint: Headache Stated Complaint: chronic migraine Time Seen by Provider: 04/16/24 17:01 Source: patient, RN notes reviewed Mode of arrival: ambulatory Limitations: no limitations - History of Present Illness Initial Comments: This is a 38-year-old female who presents to the emergency department for a migraine. Patient has a history of migraines and receives occipital nerve blocks every 3 months. However, over the last 10 days she has developed a migraine that is much more painful than what she has experienced before. Unsure how to describe this. States that it feels like a typical migraine but worse. She has light and sound sensitivity as well as nausea. She has a prescription for Imitrex, but does not like the side effects of it and typically avoids taking it. She did get a starter pack for Ubrelvy at one point but ran out of it. She did feel like this was fairly effective. MD Complaint: headache, "migraine" - Related Data Home Medications Medication Instructions Recorded Confirmed traMADol HCL 50 - 100 mg PO BID PRN 09/13/20 05/20/23 hydroCHLOROthiazide [Hydrodiuril] 25 mg PO BID 09/20/20 05/20/23 Cholecalciferol [Vitamin D3 (25 50 mcg PO DAILY 02/14/23 05/20/23 Mcg = 1000 Iu)] Escitalopram [Lexapro] 20 mg PO DAILY 02/14/23 05/20/23 Ferrous Sulfate [Feosol] 325 mg PO DAILY 02/14/23 05/20/23 Prazosin HCl [Minipress] 2 mg PO HS 02/14/23 05/20/23 amLODIPine [Norvasc] 2.5 mg PO DAILY 02/14/23 05/20/23 buPROPion XL [Wellbutrin XL] 300 mg PO DAILY 02/14/23 05/20/23 lisinopriL 40 mg PO DAILY 02/14/23 05/20/23 Previous Rx's Medication Instructions Recorded Ketorolac [Toradol] 10 mg PO Q6HR PRN #15 tab 04/16/24 Ondansetron Odt [Zofran Odt] 4 mg PO Q8HR PRN #20 tab 04/16/24 Ubrogepant [Ubrelvy] 100 mg PO DIRECTED PRN #20 04/16/24 tablet Allergies Allergy/AdvReac Type Severity Reaction Status Date / Time cephradine [From Velosef] Allergy Intermediate Rash/Hives Verified 04/16/24 17:00 Review of Systems ROS Statement: Those systems with pertinent positive or pertinent negative responses have been documented in the HPI. ROS Other: All systems not noted in ROS Statement are negative. Past Medical History Past Medical History: Asthma, Hypertension Additional Past Medical History / Comment(s): CHRONIC LOW BACK PAIN. PCOS History of Any Multi-Drug Resistant Organisms: None Reported Past Surgical History: Adenoidectomy, Section, Cholecystectomy, Tonsillectomy Past Anesthesia/Blood Transfusion Reactions: No Reported Reaction Past Psychological History: Anxiety, Depression, PTSD Smoking Status: Current every day smoker Past Alcohol Use History: None Reported Past Drug Use History: Marijuana - Past Family History Mother Family Medical History: Diabetes Mellitus, Hypertension General Exam Limitations: no limitations General appearance: alert, in no apparent distress Head exam: Present: atraumatic, normocephalic, normal inspection Eye exam: Present: normal appearance, PERRL, EOMI. Absent: scleral icterus, conjunctival injection, periorbital swelling Respiratory exam: Present: normal lung sounds bilaterally. Absent: respiratory distress, wheezes, rales, rhonchi, stridor Cardiovascular Exam: Present: regular rate, normal rhythm, normal heart sounds. Absent: systolic murmur, diastolic murmur, rubs, gallop, clicks Neurological exam: Present: alert, oriented X3, CN II-XII intact Psychiatric exam: Present: normal affect, normal mood Skin exam: Present: warm, dry, intact, normal color. Absent: rash Course Vital Signs 04/16/24 04/16/24 16:57 19:28 Temperature 97.9 F 98.7 F Pulse Rate 85 74 Respiratory 20 18 Rate Blood Pressure 141/92 122/89 O2 Sat by Pulse 97 100 Oximetry Medical Decision Making - Medical Decision Making This is a 38 year old female who presents to the emergency department for a migraine. Was pt. sent in by a medical professional or institution? @ -No Did you speak to anyone other than the patient for history? @ -No Did you review nursing and triage notes? @ -Yes, and I agree, it is accurate with regards to the patient's symptoms. Were old charts reviewed? @ -No Differential Diagnosis? @ -Differential Headache: Migraine, tension, cluster, carbon monoxide, central venous thrombosis, pension karma temporal arteritis, acute closure glaucoma, intercranial hemorrhage, mastoiditis, sinusitis, head injury, this is not meant to be an all-inclusive list. EKG interpreted by me (3pts min.)? @ -Not obtained X-rays interpreted by me (1pt min.)? @ -Not obtained CT interpreted by me (1pt min.)? @ -CT scan of the brain obtained. My interpretation identifies no evidence of an acute intracranial hemorrhage. U/S interpreted by me (1pt. min.)? @ -Not obtained What testing was considered but not performed? (CT, X-rays, U/S, labs)? Why? @ -None What meds were considered but not given? Why? @ -None Did you discuss the management of the patient with other professionals? @ -No Did you reconcile home meds? @ -No Was smoking cessation discussed for >3mins.? @ -No Was critical care preformed (if so, how long)? @ -No Were there social determinants of health that impacted care today? How? (Homelessness, low income, unemployed, alcoholism, drug addiction, transportation, low edu. Level, literacy, decrease access to med. care, alf, rehab)? @ -No Was there de-escalation of care discussed even if they declined? (Discuss DNR or withdrawal of care, Hospice)? @ -No What co-morbidities impacted this encounter? (DM, HTN, Smoking, COPD, CAD, Cancer, CVA, Hep., AIDS, mental health diagnosis, sleep apnea, morbid obesity)? @ -Migraines Was patient admitted / discharged? @ -Discharged. Given that this migraine was worse than what she typically experiences, CT scan of the brain was obtained. This revealed no acute process. She was treated with a migraine cocktail consisting of IV fluids, Toradol, Decadron, Compazine, and Benadryl. She had significant relief in symptoms afterwards. Toradol and Zofran prescribed for further symptomatic management. I did send in the Ubrelvy, which has worked well for her in the past. Advised that this is a very expensive medication and if her insurance does not cover it she should look into prescription savings options or see if the fancy needleworker has any coupons. Patient discharged home in stable condition. Case discussed with ED attending Dr. Michael. Return precautions reviewed in depth, the patient is instructed to return to the emergency department with any new, worsening, or concerning symptoms. Patient verbalized understanding. Undiagnosed new problem with uncertain prognosis? @ -None Drug Therapy requiring intensive monitoring for toxicity (Heparin, Nitro, Insulin, Cardizem)? @ -None Were any procedures done? @ -None Diagnosis/symptom? @ -Migraine Acute, or Chronic, or Acute on Chronic? @ -Acute Uncomplicated (without systemic symptoms) or Complicated (systemic symptoms)? @ -Uncomplicated Side effects of treatment? @ -None Exacerbation, Progression, or Severe Exacerbation] @ -Not applicable Poses a threat to life or bodily function? @ -No - Radiology Data Radiology results: report reviewed, image reviewed Disposition Clinical Impression: Migraine headache Disposition: HOME SELF-CARE Instructions (If sedation given, give patient instructions): Migraine Headache (ED) Additional Instructions: Return to the emergency department with any new, worsening, or concerning symptoms. Take the Toradol with Tylenol as needed for pain relief. If you choose to take the Toradol, do not take any other anti-inflammatories such as ibuprofen, take one or the other. Take the Zofran up to every 8 hours as needed for nausea and vomiting. You can try taking the Ubrelvy for migraines. If your insurance does not cover this you may need to look into prescription savings programs or see if there are any coupons available directly from the company. Follow up with your primary care provider in 1-2 days. Prescriptions: Ketorolac [Toradol] 10 mg PO Q6HR PRN #15 tab PRN Reason: Pain Ubrogepant [Ubrelvy] 100 mg PO DIRECTED PRN #20 tablet PRN Reason: Migraine Headache Ondansetron Odt [Zofran Odt] 4 mg PO Q8HR PRN #20 tab PRN Reason: Nausea And Vomiting Is patient prescribed a controlled substance at d/c from ED?: No Referrals: Haja Randolph MD [Primary Care Provider] - 1-2 days Time of Disposition: 18:52
[2024-04-16] MEDS: DEXAMETHASONE SOD PHOSPHATE 10 MG/ML 1 ML VIAL IVP STA (17:34)
[2024-04-16] MEDS: KETOROLAC 15 MG/ML 1 ML VIAL IVP STA ×2 (17:36→19:21)
[2024-04-16] MEDS: SODIUM CHLORIDE 0.9% 1,000 ML IV STA (17:40)
[2024-04-16] MEDS: diphenhydrAMINE 50 MG/ML 1 ML VIAL IVP STA (17:41)
[2024-04-16] MEDS: PROCHLORPERAZINE INJ 10 MG/2 ML VIAL IVP STA (17:42)
--- NOTE | 2024-04-16 18:04 | CT ---
EXAMINATION TYPE: CT brain wo con DATE OF EXAM: 04/16/2024 COMPARISON: None HISTORY: Migraine x10 days CT DLP: 1074.[address] of the brain was performed. The ventricles, basal cisterns and sulci overlying the cerebral convexities demonstrate a normal appe arance. There is no evidence for intracranial hemorrhage or sulcal effacement. No mass effects are seen. Osseous calvarium is intact. If symptoms persist consider MRI as clinically warranted. IMPRESSION: 1. No acute intracranial process is seen at this time. [facility], , 04/16/2024 6:02 PM
[2024-04-16 19:28] VITALS: BP 122/89; PULSE 74; RESP 18; TEMP 98.7
== END 2024-04-16 19:28 | disposition home or self-care (01) ==
LOC: EC 16:45
CPT/HCPCS: 70450; 96361; 96374; 96375; 99284

== ENCOUNTER 2024-05-15 09:36 | Day surgery (SDC) | payer OTHER ==
[2024-05-15 10:45] VITALS: TEMP 98
[2024-05-15] MEDS: LACTATED RINGERS 1,000 ML IV SCH (10:45)
[2024-05-15] MEDS: IV FLUID CONTINUATION 1,000 ML IV ONE (10:46)
[2024-05-15 10:51] LABS: Glucose,Whole Blood 75 mg/dL (70-110)
[2024-05-15] MEDS ORDERED: LIDOCAINE 1% INJ 10MG/ML (20 ML MDV) ONE (11:26)
[2024-05-15] MEDS ORDERED: PROPOFOL 10 MG/ML 20 ML VIAL IV ONE (11:26)
--- NOTE | 2024-05-15 11:42 | P.PCN ---
Date of Procedure: 05/15/24 Procedure(s) Performed: BRIEF HISTORY: Patient is a 38-year-old pleasant white female scheduled for an elective colonoscopy as a part of evaluation of chronic diarrhea for the last 1 year duration. She has bowel movements anywhere from 8-10 episodes of watery consistency but no blood or mucus in the stool PROCEDURE PERFORMED: Colonoscopy with random biopsies. PREOPERATIVE DIAGNOSIS: Chronic diarrhea. IV sedation per Anesthesia. PROCEDURE: After informed consent was obtained, the patient, was brought into the endoscopy unit. IV sedation was administered by Anesthesia under continuous monitoring. Digital rectal examination was normal. Initially the Olympus CF-160 flexible video colonoscope was then inserted in the rectum, gradually advanced into the cecum without any difficulty. Careful examination was performed as the scope was gradually being withdrawn. Ileocecal valve and the appendiceal orifice were visualized and appeared normal. Prep was excellent. Mucosa of the cecum, ascending colon, transverse colon, descending colon, normal. The sigmoid colon there was a 5 mm polyp that was removed by cold biopsy. Rest of the sigmoid colon, and rectum appeared normal. Random biopsies were done from the ascending and descending colon to rule out microscopic/collagenous colitis. Terminal ileum was intubated in 20 cm visualized and appeared normal. Retroflexion was performed in the rectum and no lesions were seen. The patient tolerated the procedure well. IMPRESSION: 5 mm sigmoid colon polyp status post cold biopsy Rest of the colon appeared normal RECOMMENDATIONS: Findings of this examination were discussed with the patient as well as her family. She was advised to follow-up with the biopsy results. Follow-up in the office in 2 to 3 weeks..
[2024-05-15 12:16] VITALS: BP 118/84; PULSE 64; RESP 18
== END 2024-05-15 12:17 | disposition home or self-care (01) ==
LOC: ORWHC2ENDO 09:36
PROVIDERS: ATTEND Internal Medicine Gastroenterology
DX: K63.5 Polyp of colon (principal); K52.9 Noninfective gastroenteritis and colitis, unspecified; I10 Essential (primary) hypertension; J45.909 Unspecified asthma, uncomplicated; G47.33 Obstructive sleep apnea (adult) (pediatric); F41.8 Other specified anxiety disorders; E66.9 Obesity, unspecified; K21.9 Gastro-esophageal reflux disease without esophagitis; Z87.891 Personal history of nicotine dependence; Z79.899 Other long term (current) drug therapy; Z88.1 Allergy status to other antibiotic agents
CPT/HCPCS: 81025; 88305; 45380; J2003; J2704

== ENCOUNTER → 2024-06-01 | Outpatient (CLI) | payer OTHER ==
[2024-06-01 19:23] LABS: Basophils # (A) 0.03 X 10*3/uL (0.00-0.10); Basophils % (A) 0.3 %; Eosinophils # (A) 0.01 X 10*3/uL (0.04-0.35); Eosinophils % (A) 0.1 %; HCT 44.9 % (37.2-46.3); HGB 15.4 g/dL (12.0-15.0); Lymphocytes # (A) 2.31 X 10*3/uL (0.90-5.00); Lymphocytes % (A) 24.6 %; MCH 28.6 pg (27.0-32.0); MCHC 34.3 g/dL (32.0-37.0); MCV 83.5 FL (80.0-97.0); Mean Platelet Volume 9.9 FL (9.5-12.2); Monocytes # (A) 0.84 X 10*3/uL (0.20-1.00); Monocytes % (A) 8.9 %; NRBC Per 100 WBC 0 X 10*3/uL (0.00-0.01); Neutrophils # (A) 6.16 X 10*3/uL (1.80-7.70); Neutrophils % (A) 65.7 %; Platelet Count 302 X 10*3/uL (140-440); RBC 5.38 X 10*6/uL (4.10-5.20); RDW 13.5 % (11.5-14.5); WBC 9.39 X 10*3/uL (4.50-10.00)
[2024-06-01 20:03] LABS: Erythrocyte Sedimentation Rate 13 mm/Hr (0-20)
[2024-06-01 20:26] LABS: % Iron Saturation 19.75 (12.00-45.00); C Reactive Protein 0.9 mg/dL (0.00-0.80); T4, Free (Free Thyroxine) 1.46 ng/dL (0.80-1.80)
== END | disposition home or self-care (01) ==
LOC: LABWHC1 14:50
PROVIDERS: ATTEND Family Medicine
DX: D50.9 Iron deficiency anemia, unspecified (principal); L65.9 Nonscarring hair loss, unspecified
CPT/HCPCS: 36415; 82306; 82607; 82728; 82746; 83540; 83550; 84439; 84443; 84481; 84630; 85025; 85652; 86038; 86039; 86140

== ENCOUNTER → 2024-06-10 | Outpatient (CLI) | payer OTHER ==
[2024-06-10 16:12] LABS: C Reactive Protein <0.30 mg/dL (0.00-0.80); Rheumatoid Factor, Qnt <15 IU/mL (0-15)
[2024-06-10 16:34] LABS: Thyroid Peroxidase Antibodies 21.6 U/mL (0.0-33.0)
[2024-06-10 22:48] LABS: Anti-Smith Ab Interp Negative (Negative); Centromere Antibody <0.2 AI; Centromere Antibody Interp Negative (Negative); DNA Double-Stranded Negative (Negative)
[2024-06-12 13:20] LABS: C-ANCA <1:20 Titer (<1:20)
[2024-06-12 13:22] LABS: Smooth Muscle Antibody 6 UNITS (<20)
[2024-06-12 13:51] LABS: HLA B27 NEGATIVE
== END | disposition home or self-care (01) ==
LOC: LABWHC1 08:25
PROVIDERS: ATTEND Nurse Practitioner Family
DX: R76.8 Other specified abnormal immunological findings in serum (principal)
CPT/HCPCS: 36415; 83516; 86038; 86140; 86225; 86235; 86255; 86376; 86431; 86812